=== PATIENT | male | born 1960 | race Hispanic/Latino ===

== ENCOUNTER 2017-06-30 06:41 | Emergency (ER) | payer MEDICARE, OTHER ==
[~2017-06-30] VITALS: Ht 160 cm; Wt 83.5 kg
[2017-06-30] MEDS ORDERED: CARAFATE1 GM PO (06:58)
[2017-06-30] MEDS ORDERED: NORVASC5 MG PO (06:59)
[2017-06-30] MEDS ORDERED: PRILOSEC OTC20 MG PO (06:59)
[2017-06-30] MEDS ORDERED: SIMVASTATIN10 MG PO (07:00)
[2017-06-30] MEDS ORDERED: ZESTRIL40 MG PO (07:01)
[2017-06-30] MEDS ORDERED: CHLORDIAZEPOXID25 MG PO (07:05)
[2017-06-30] MEDS ORDERED: VISTARIL25 MG PO (07:10)
[2017-06-30] MEDS ORDERED: ZOFRAN ODT4 MG PO (07:11)
[2017-06-30] MEDS ORDERED: MELATONIN3 MG PO (07:13)
[2017-06-30] MEDS ORDERED: TRAZODONE HCL100 MG PO (07:14)
--- NOTE | 2017-06-30 12:10 | EKG ---
[facility] [address] [place], [place] [address] Signed Normal sinus rhythm Right bundle branch block Abnormal ECG No previous ECGs available Confirmed by JUAN F AGOSTO MD ([id number]) on 06/30/2017 12:10:45 PM Electronically Signed By: JUAN F AGOSTO MD 06/30/17 1210 PATIENT NAME: AJ EMERSON Electrocardiogram DATE OF : 62 PHYSICIAN: JUAN F AGOSTO MD REPORT #: [id number] REPORT IS CONFIDENTIAL AND NOT TO BE RELEASED WITHOUT AUTHORIZATION
== END 2017-06-30 08:03 | disposition home or self-care (01) ==
LOC: ED 06:41
DX: R07.2 Precordial pain (principal); I10 Essential (primary) hypertension; Z87.891 Personal history of nicotine dependence; Z79.899 Other long term (current) drug therapy
CPT/HCPCS: 71010; 80053; 84484; 85025; 93005; 93010; 96374; 99284; J2405

== ENCOUNTER 2017-11-01 10:28 | Emergency (ER) | payer MEDICARE, OTHER ==
[~2017-11-01] VITALS: Ht 160 cm; Wt 83.5 kg
[~2017-11-01 10:28] MED LIST: CARAFATE1 GM PO; CHLORDIAZEPOXID25 MG PO; MELATONIN3 MG PO; NORVASC5 MG PO; PRILOSEC OTC20 MG PO; SIMVASTATIN10 MG PO; TRAZODONE HCL100 MG PO; VISTARIL25 MG PO; ZESTRIL40 MG PO; ZOFRAN ODT4 MG PO
[2017-11-01] MEDS ORDERED: K-TAB ER20 MEQ PO (10:42)
[2017-11-01] MEDS ORDERED: TAMSULOSIN HCL0.4 MG PO (10:42)
[2017-11-01] MEDS ORDERED: BACLOFEN10 MG PO (12:20)
[2017-11-01] MEDS ORDERED: MEDROL4 M1 PO (12:20)
== END 2017-11-01 12:31 | disposition home or self-care (01) ==
LOC: ED 10:28
DX: M25.511 Pain in right shoulder (principal); E78.00 Pure hypercholesterolemia, unspecified; I10 Essential (primary) hypertension; Z87.891 Personal history of nicotine dependence; Z79.899 Other long term (current) drug therapy; W01.0XXA Fall on same level from slipping, tripping and stumbling without subsequent striking against object, initial encounter
CPT/HCPCS: 73030; 96374; 99283; J1885

== ENCOUNTER 2017-11-03 18:21 | Emergency (ER) | payer MEDICARE, OTHER ==
[~2017-11-03] VITALS: Ht 160 cm; Wt 86.2 kg
[~2017-11-03 18:21] MED LIST changes: +BACLOFEN10 MG PO; +K-TAB ER20 MEQ PO; +MEDROL4 M1 PO; +TAMSULOSIN HCL0.4 MG PO
[2017-11-03] MEDS ORDERED: PAIN RELIEVER500 MG PO (19:24)
== END 2017-11-03 23:00 | disposition home or self-care (01) ==
LOC: ED 18:21
DX: R10.11 Right upper quadrant pain (principal); I10 Essential (primary) hypertension; Z87.891 Personal history of nicotine dependence; Z79.899 Other long term (current) drug therapy
CPT/HCPCS: 74177; 80053; 81001; 83690; 85025; 96372; 96374; 99284; J0500; Q9967

== ENCOUNTER 2017-11-06 11:33 | Emergency (ER) | payer MEDICARE, OTHER ==
[~2017-11-06] VITALS: Ht 160 cm; Wt 86.2 kg
[~2017-11-06 11:33] MED LIST changes: +PAIN RELIEVER500 MG PO
[2017-11-06] MEDS ORDERED: TYLENOL WITH C1 EACH PO (12:58)
== END 2017-11-06 13:08 | disposition home or self-care (01) ==
LOC: ED 11:33
DX: S20.211A Contusion of right front wall of thorax, initial encounter (principal); I10 Essential (primary) hypertension; E78.00 Pure hypercholesterolemia, unspecified; Z87.891 Personal history of nicotine dependence; Z79.899 Other long term (current) drug therapy; W07.XXXA Fall from chair, initial encounter
CPT/HCPCS: 71101; 99283

== ENCOUNTER 2018-06-06 13:19 | Emergency (ER) | payer MEDICARE, OTHER ==
[~2018-06-06] VITALS: Ht 160 cm; Wt 86.2 kg
--- OUTSIDE RECORDS SUMMARY | ~2018-06-06 | XMS | Encounter Summary ---
Demographics + + + | Address | [address] | | | [place] [address] | + + + | Home Phone | | + + + | Preferred Language | Unknown | + + + | Marital Status | | + + + | Uatsdin Affiliation | Unknown | + + + | Race | Unknown | + + + | Ethnic Group | Unknown | + + + Author + + + | Author | [facility] | | | and Javyana | + + + | Organization | [facility] | | [...] [place] | | | | | [address] | | + + + + + Care Team Providers + +------+ + | Care Clamp Remover Name | Role | Phone | + [...] | Internal | Heriberto | [address] | | | | | derangement | [place] | [place], | | | | | of right | [address] | [place] | | | | | shoulder | [address] [place] | [address] | | | | | Right | [place], [place] | Phone: | | | | | shoulder | [address] | [phone] | | | | | pain, | Phone: | Fax: | | | | | unspecified | [phone] | [phone] | | | | | chronicity | Fax: | | | | | | Primary | [phone] | | | | | | osteoarthrit [...] | Internal | Heriberto | [address] | | | | | derangement | [place] | [place], | | | | | of right | [address] | [place] | | | | | shoulder | [address] [place] | [address] | | | | | Right | [place], [place] | Phone: | | | | | shoulder | [address] | [phone] | | | | | pain, | Phone: | Fax: | | | | | unspecified | [phone] | [phone] | | | | | chronicity | Fax: | | | | | | Primary | [phone] | | | | | | osteoarthrit [...] | Internal | Heriberto | [address] | | | | | derangement | [place] | [place], | | | | | of right | [address] | [place] | | | | | shoulder | [address] [place] | [address] | | | | | Right | [place], [place] | Phone: | | | | | shoulder | [address] | [phone] | | | | | pain, | Phone: | Fax: | | | | | unspecified | [phone] | [phone] | | | | | chronicity | Fax: | | | | | | Primary | [phone] | | | | | | osteoarthrit [...] + + | 06/03/ | Hospital | [facility] | Heriberto Laurent | Internal derangement | | 2018 | Encounter | MED CTR MRI [address] | [place] | of right shoulder; | | | | [place], | [address] [place] | Right shoulder pain, | | | | [place] [address] | [place] [address] | unspecified | | | | [phone] | [phone] | chronicity; Primary | | | | [...] [place] | | | | | | [address] | | | | | | [phone] | | | | | | | [...]
--- OUTSIDE RECORDS SUMMARY | ~2018-06-06 | XMS | Encounter Summary ---
Demographics + + + | Address | [address] | | | [place] [address] | + + + | Home Phone | | + + + | Preferred Language | Unknown | + + + | Marital Status | | + + + | Restoration Affiliation | Unknown | + + + | Race | Unknown | + + + | Ethnic Group | Unknown | + + + Author + + + | Author | [facility] | | | and Jvayana | + + + | Organization | [facility] | | | [...] [place] | | | | | [address] | | + + + + + Care Team Providers + +------+ + | Care Industrial Laborer Name | Role | Phone | + +------+ + | Neeru Leggett | PCP | | + +------+ + Encounter Details +--------+ + + + + | Date | Type | Department | Care Team | Description | +--------+ + + + + | 06/03/ | Hospital | [facility] | Heriberto Laurent | Internal derangement | | 2018 | Encounter | MED CTR XRAY [address] | [place] | of right shoulder; | | | | [place] | [address] [place] | Right shoulder pain, | | | | [place] [address] | [place] [address] | unspecified | | | | [phone] | [phone] | chronicity; Primary | | | | | | osteoarthritis of | | | | | Rad, [facility] | right shoulder | +--------+ + + [...] 2018 | Visit | | MD Micaela TURNER | | | | | | [place] | | | | | | [address] | | | | | | [phone] | | | | | | | [...] + + + in this encounter Results [place] Shoulder Inj Right for MRI or [...] + + | Performing | Address | City[facility] | Phone Number | | Organization | [...] localized osteoarthrosis, shoulder region | + + Administered Medications + +--------+ + +------+------+ | Medication Order | MAR | Action | Dose | Rate | Site | | | Action | Date | | | | + +--------+ + +------+------+ | gadobutrol (GADAVIST) injection | Given | | 0.05 mLs | | | | 0.05 mL 0.05 mL, | | 8 11:58 | | | | | Intra-articular, ONCE PRN, Other, | | PDT | | | | | Starting 06/03/18 at 1157, | | | | | | | For 1 dose, MRI | | | | | | + +--------+ + +------+------+ +---+---+ | | | +---+---+ + +-------+ +-------+---+---+ | iohexol (OMNIPAQUE 240) 240 | Given | | 5 mLs | | | | mg/mL injection 5 mL 5 mL, | | 8 12:15 | | | | | Intra-articular, ONCE, Fri | | PDT | | | | | 06/03/18 at 1215, For 1 dose, | | | | | | | Radiology | | | | | | + +-------+ +-------+---+---+ +---+---+ | | | +---+---+ + +-------+ +-------+---+ + | lidocaine 1% injection 5 mL 5 | Given | | 5 mLs | | Other | | mL, Intradermal, ONCE, Fri | | 8 12:15 | | | (Comment | | 06/03/18 at 1215, For 1 dose | | PDT | | | ) | + +-------+ +-------+---+ + +---+---+ | | | +---+---+ in this encounter
--- OUTSIDE RECORDS SUMMARY | ~2018-06-06 | XMS | Encounter Summary ---
Demographics + + + | Address | [address] | | | [place] [address] | + + + | Home Phone | | + + + | Preferred Language | Unknown | + + + | Marital Status | | + + + | Mu-Ism Affiliation | Unknown | + + + | Race | Unknown | + + + | Ethnic Group | Unknown | + + + Author + + + | Author | [facility] | | | and Javyana | + + + | Organization | [facility] | | | [...] [place] | | | | | [address] | | + + + + + Care Team Providers + +------+ + | Care Die Sizer Name | Role | Phone | + [...] W | | | | | | [place], | | | | | | [place] [address] | | | | | | [phone] | | | +--------+ + + + [...] | | | | | | [place] | | | | | | [address] | | | | | | [phone] | | | | | | | | +--------+---------+ + + + as of this encounter Visit Diagnoses Not on filein this encounter
--- OUTSIDE RECORDS SUMMARY | ~2018-06-06 | XMS | Clinical Summary ---
Demographics + + + | Address | [address] | | | [place] [address] | + + + | Home Phone | | + + + | Preferred Language | Unknown | + + + | Marital Status | | + + + | Hoahaoism Affiliation | Unknown | + + + | Race | Unknown | + + + | Ethnic Group | Unknown | + + + Author + + + | Author | [facility] | + + + | Organization | [facility] [employer] [facility] | + + + | Address | Unknown | + + + | Phone | Unavailable | + + + Support + + +---------+ + | Name | Relationship | Address | Phone | + + +---------+ + | Mine Marcos | ECON | Unknown | | + + +---------+ + Care Team Providers + +------+ + | Care Linux Vmware Administrator Name | Role | Phone | + [...]
--- OUTSIDE RECORDS SUMMARY | ~2018-06-06 | XMS | Encounter Summary ---
Demographics + + + | Address | [address] | | | [place] [address] | + + + | Home Phone | | + + + | Preferred Language | Unknown | + + + | Marital Status | | + + + | Confucianism Affiliation | Unknown | + + + | Race | Unknown | + + + | Ethnic Group | Unknown | + + + Author + + + | Author | [facility] | | | and [place] | + + + | Organization | [facility] | | | and [place] | + + + | Address | Unknown | + + + | Phone | Unavailable | + + + Support + + + + + | Name | Relationship | Address | Phone | + + + + + | Arabella aPtel | ECON | Unknown | | + + + + + | Mine Marcos | ECON | [place] | | | | | [address] | | + + + + + Care Team Providers + +------+ + | Care Compliance Officer Name | Role | Phone | + +------+ + | Neeru Leggett | PCP | | + +------+ + Reason for Visit + + + | Reason | Comments | + + + | Shoulder Pain | | + + + | Mental Health | | | Evaluation | | + + + Encounter Details +--------+ + + + + | Date | Type | Department | Care Team | Description | +--------+ + + + + | 06/03/ | Emergency | [facility] | Manuel Leggett, | Acute pain of right | | 2018 - | | [facility] | MD [address] | shoulder (Primary | | | | CENTER [address] | [facility] [place] | Dx); Depression, | | 06/04/ | | [place] | [place] [address] | unspecified | | 2017 | | [address] | [phone] | depression type; | | | | [phone] | | Suicidal ideation; | | | | | | Hypokalemia; | | | | | | Alcoholic | | | | | | intoxication with | | | | | | complication (HCC) | +--------+ + + + + Social [...] + + + + | Weight | - | - | + + + + | Height | - | - | + + + + | Body Mass Index | - | - | + + + + in this encounter Discharge Instructions Manuel Leggett MD - 06/04/2018Take the medicines as prescribed Follow-up with primary care Follow up at the [place] Follow-up with orthopedics Any additional prescription for pain medicine needs to come from one of your regular physic ians, not the ER The following attachments cannot be sent through Care Everywhere.Depression (Eritrean)Alcoho l Intoxication ([place]rit[place]an)Hypokalemia ([place]ritrean)Shoulder Problems ([place]rit[place]an)in this encounter Medications at Time of Discharge [...] [place] | | | | | | [address] | | | | | | [phone] | | | | | | | | +--------+---------+ + + + + +--------+ + + | Name | Priori | Associated Diagnoses | Date/Time | | | ty | | | + +--------+ + + | ED INFORMATION EXCHANGE | Routin | | 06/03/20182237 PDT | | | e | | [...] | | | PEDRO | | | [id number] | | | [id number] | | | This | | | [...] | | | 178-01 | | | [id number] | | | [id number] | | | [...] | | | St. | | | [place] | | | y | | | [...] | | | r | | | [place] | | | , TEXTILE MACHINE MAINTENANCE MECHANIC, | | | TEXTILE MACHINE MAINTENANCE MECHANIC | | | Primar | | | [...] | | | fectio | | | n/Medical Doctor Nuclear Medicine | | | nic10/ | | | [...] | | | St. | | | [place] | | | y | | | [...] | | | [phone] | | | [phone] | | | .These | | | [...] | | +---+--------+ in this encounter Results TSH (06/03/2018 2686) + + + + + | Component | Value | Ref Range | Performed At | + + + + + | TSH | 1.74Comment: This is a | 0.45 - 5.33 uIU/mL | [facility] | | | third generation TSH | | [facility] | | | test. | | [...] + | [facility] | [address] | [place] | [phone] | | [facility] | | [address] | | | - LABORATORY | | | | + + + + + | [facility] | [address] | [place] | | | [facility] | | [address] | | | - LABORATORY | | | | + + + + + Urinalysis with Microscopic with Culture if Indicated (06/03/20182253) + + + + + | Component | Value | Ref Range | Performed At | + + + + + | COLOR | Yellow | Light Yellow, | [facility] | | | | Yellow, Straw | [facility] | | | | | CENTER [...] + + + + + | Specific [place] | 1.013 | 1.001 - 1.030 | [...] + + | Performing | Address | City/[facility]/Zipcode | Phone Number | | Organization | | | | + + + + + | [facility] | [address] | [place], [place] | [phone] | | [facility] | | [address] | | | - LABORATORY | | | | + + + + + | [facility] | [address] | [place] | | | [facility] | | [address] | | | - LABORATORY | | | | + + + + + Drugs of Abuse, Screen, Urine (06/03/2018 2679) + + + + + | Component | Value | Ref Range | Performed At | + + + + + | Amphetamine Screen, | Negative | Negative | [facility] | | Urine | | | [facility] | | | | | CENTER - | | | | | LABORATORY | + + + + + | Barbiturates Screen, | Negative | Negative | [facility] | | Urine | | | [facility] | | | | | CENTER [...] + | [facility] | [address] | [place], [place] | [phone] | | [facility] | | [address] | | | - LABORATORY | | | | + + + + + | [facility] | [address] | [place], [place] | | | [facility] | | [address] | | | - LABORATORY | | | | + + + + + Acetaminophen Level (06/03/20182253) + +-------+ + + | Component | Value | Ref Range | Performed At | + +-------+ + + | Acetaminophen Level | <10 | <10 ug/mL | [facility] | | | | [...] + | [facility] | [address] | [place] | [phone] | | [facility] | | [address] | | | - LABORATORY | | | | + + + + + | [facility] | [address] | [place] | | | [facility] | | [address] | | | - LABORATORY | | | | + + + + + Salicylate Level (06/03/20182253) + +-------+ + + | Component | Value | Ref Range | Performed At | + +-------+ + + | Salicylate Level | <4.0 | <30.0 mg/dL | [facility] | | | | | [facility] | | | | | CENTER - | | | | | LABORATORY | + +-------+ + + + + | Specimen | + + | Blood | + + + + + + + | Performing | Address | City/State/Zipcode | Phone Number | | Organization | | | | + + + + + | [facility] | [address] | [place], [place] | [phone] | | [facility] | | [address] | | | - LABORATORY | | | | + + + + + | [facility] | [address] | [place], [place] | | | [facility] | | [address] | | | - LABORATORY | | | | + + + + + Ethanol (06/03/20182253) + +-------+ + + | Component | Value | Ref Range | Performed At | + +-------+ + + | ALCOHOL, | 127 | <400 mg/dL | [facility] | | SERUM/PLASMA | | | [facility] | | | | | CENTER - | | | | | LABORATORY | + +-------+ + + + + | Specimen | + + | Blood | + + + + + + + | Performing | Address | City/State/Zipcode | Phone Number | | Organization | | | | + + + + + | [facility] | [address] | [place] | [phone] | | [facility] | | [address] | | | - LABORATORY | | | | + + + + + | [facility] | [address] | [place] | | | [facility] | | [address] | | | - LABORATORY | | | | + + + + + Comprehensive Metabolic Panel (06/03/20182253) + + + + + | Component | Value | Ref Range | Performed At | + + + + + | NA | 140 | 136 - 149 mmol/L | [facility] | | | | | [facility] | | | | | CENTER [...] 9 | 7 - 18 mg/dL | [facility] | | | | | [facility] | | | | | CENTER - | | | | | LABORATORY | + + + + + | Creatinine, | 0.70 | 0.60 - 1.30 mg/dL | [facility] | | Serum/Plasma | | | [facility] | | | | | CENTER - | | | | | LABORATORY | + + + + + | eGFR if not | >60Comment: GLOMERULAR | >=60 mL/min/1.73m2 | [facility] | | [place] | FILTRATION | | [facility] | | | RATE,ESTIMATED mL/min | | CENTER - | | | /1.86u1Qlwx than 60 | | LABORATORY | | [...] 8.5 | 8.3 - 10.5 mg/dL | [facility] | | | | | [facility] | | | | | CENTER - | | | | | LABORATORY | + + + + + | ALBUMIN | 3.9 | 3.2 - 5.0 g/dL | [facility] | | | | | [facility] | | | | | CENTER - | | | | | LABORATORY | + + + + + | Bilirubin Total | 0.8Comment: This is an | 0.1 - 1.5 mg/dL | [facility] | | | appended report. These | | [facility] | | | results have been | | CENTER - | | | appended to a previously | | LABORATORY | | | preliminary verified | | | | | report. | | | + + + + + | Total protein | 6.9 | 6.0 - 7.8 g/dL | [facility] | | | | | [facility] | | | | | [...] | | appended report. These | | [facility] | | | results have been | | CENTER - | | | appended to a previously | | LABORATORY | | | preliminary verified | | | | | report. | | | + + + + + | GLOBULIN | 3.0 | 2.1 - 3.8 g/dL | [facility] | | | | | [facility] | | | | | CENTER - | | | | | LABORATORY | + + + + + | Albumin/Globulin | 1.3 | 0.8 - 2.0 | [facility] | | ratio | | | [facility] | | | | | CENTER - | | | | | LABORATORY | + + + + + | BUN/CREA | 12.9 | | [facility] | | | | | [facility] | | | | | CENTER [...] + | [facility] | [address] | [place] | [phone] | | [facility] | | [address] | | | - LABORATORY | | | | + + + + + | [facility] | [address] | [place] | | | [facility] | | [address] | | | - LABORATORY | | | | + + + + + CBC with Differential (06/03/20182253) + +-------+ + + | Component | Value | Ref Range | Performed At | + +-------+ + + | WBC | 9.9 | 4.0 - 11.0 K/uL | [facility]. | | | | | [facility] | | | | | CENTER - | | | | | LABORATORY | + +-------+ + + | RBC | 4.90 | 4.30 - 5.70 M/uL | [facility]. | | | | | [facility] | | | | | CENTER [...] [facility] | | | | | [facility] | | | | | [...] + | [facility] | [address] | [place], [place] | [phone] | | [facility] | | [address] | | | - LABORATORY | | | | + + + + + | [facility] | [address] | [place], [place] | | | [facility] | | [address] | | | - LABORATORY | | | | + + + + + in this encounter Visit Diagnoses + + | Diagnosis | + + | Acute pain of right shoulder - Primary | + + | Depression, unspecified depression type | + + | Suicidal ideation | + + | Hypokalemia | + + | Hypopotassemia | + + | Alcoholic intoxication with complication (HCC) | + + Administered Medications + +--------+ +-------+------+------+ | Medication Order | MAR | Action | Dose | Rate | Site | | | Action | Date | | | | + +--------+ +-------+------+------+ | oxyCODONE (ROXICODONE) tablet | Given | | 10 mg | | | | 10 mg 10 mg, Oral, ONCE, Fri | | 23:04 | | | | | 06/03/18 at 2305, For 1 dose | | PDT | | | | + +--------+ +-------+------+------+ +---+---+ | | | +---+---+ + +-------+ +--------+---+---+ | potassium chloride (Klor-Con | Given | | 40 mEq | | | | M20) ER tablet 40 mEq 40 mEq, | | 8 23:30 | | | | | Oral, ONCE, 06/03/18 at 2325, | | PDT | | | | | For 1 dose | | | | | | + +-------+ +--------+---+---+ +---+---+ | | | +---+---+ in this encounter
--- OUTSIDE RECORDS SUMMARY | ~2018-06-06 | XMS | Clinical Summary ---
Demographics + + + | Address | [address] | | | [place] [address] | + + + | Home Phone | | + + + | Preferred Language | Unknown | + + + | Marital Status | | + + + | Presybeterian Affiliation | Unknown | + + + | Race | Unknown | + + + | Ethnic Group | Unknown | + + + Author + + + | Author | [facility] | | | and [place] | + + + | Organization | [facility] | | | and [...] [place] | | | | | [address] | | + + + + + Care Team Providers + +------+ + | Care Control Officer Name | Role | Phone | [...] baclofen twice | | ER visit and FACILITY ENGINEER eval 07/03/17 and 07/05/17 | + + [...] outside recordsFinds good | | support w/ yazidism groups | + + + + + [...] to get detox | | at [facility] Assessment & Plan: Self medicates with ETOH when out of | | narcoticsVery dangerous behavior - advised on risksPatient | | declined referral to treatment or to meet with [facility] | |Per ER note again 06/15/2017 - still drinking; unable to get detox at [place] | | | |Last Assessment & Plan: | |Self medicates with ETOH when out of narcotics | |Very dangerous behavior - advised on risks | |Patient declined referral to treatment or to meet with [facility] | + + + + + | Chronic pain of both shoulders | 04/12/2017 | + + + + + | Overview: Overview: Hx multiple RC surgeryOverview: L | | shoulder arthroscopy with subacromial decompression x 2 (2010 | | with Dr. Espinoza and re-injury with re-repair 2017 at | | [facility])Previously completed PTInjections - minimal reliefSee | | chronic painLast Assessment & Plan: Chronic shoulder pain with | | history of multiple shoulder surgeries and previous PT and | | injections. Referral placed to [facility] per patient | | preference | | | |Last Assessment & Plan: | |Chronic shoulder pain with history of multiple shoulder surgeries and previous PT and injec tions. Referral placed to [facility] per patient preference | + + [...] + -+ | Overview: Overview: Followed by [facility]; chronic | | narcoticsHas and understands how to use NarcanOverview: Followed | | by [facility]; chronic narcoticsHas and understands | | how [...] to discuss transportation resources [facility] | | [facility] to [facility] alternatives | | [...] | | surgeryDr. Lui referred him to [facility] for [facility] opinion - | | pending first visit | |Multiple hernia repair. Followed by GI and surgery | |Dr. Lui referred him to [facility] for second opinion - pending first visit [...] | 05/31/ | Emergency | | Joe Knog | Chronic right | | 2018 | [...] [place] | | | | | | [address] | | | | | | [phone] | | | | | | | [...] | | | PEDRO | | | [id number] | | | [id number] | | | This | | | [...] | | | 178-01 | | | [id number] | | | d0cb | | | [...] | | | St. | | | [place] | | | y | | | [...] | | | r | | | [place] | | | , CANAL SUPERINTENDENT, | | | CANAL SUPERINTENDENT | | | Primar | | | [...] | | | fectio | | | n/Technical Operations Vice President | | | nic10/ | | | [...] | | | St. | | | [place] | | | y | | | [...] | | | Guidel | | | ojhnny | | | Medica | | | [...] | | | PEDRO | | | [id number] | | | [id number] | | | This | | | [...] | | | 178-01 | | | [id number] | | | d0cb | | | [...] | | | St. | | | [place] | | | y | | | [...] | | | r | | | [place] | | | , CANAL SUPERINTENDENT, | | | CANAL SUPERINTENDENT | | | Primar | | | [...] | | | St. | | | [place] | | | y | | | [...] with Microscopic with Culture if Indicated (06/03/2018 7042)Only the most recent of 2 results within [...] + + + + + | Specific [place] | 1.013 | 1.001 - 1.030 | [...] [address] | [place] | [phone] | | [facility] | | [address] | | | - LABORATORY | | | | + + + + + | [facility] | [address] | [place] | | | [facility] | | [address] | | | - LABORATORY | | | | + + + + + Drugs of Abuse, Screen, Urine (06/03/2018 2524)Only the most recent of 2 results within [...] ST. | | Urine | | | [facility] | | | | | [...] + | [facility] | [address] | [place] | [phone] | | [facility] | | [address] | | | - LABORATORY | | | | + + + + + | [facility] | [address] | [place] | | | [facility] | | [address] | | | - LABORATORY | | | | + + + + + CBC with Differential (06/03/2018 4206)Only the most recent of 2 results within [...] [facility] | | | | | [facility] | | | | | [...] + | [facility] | [address] | [place], [place] | [phone] | | [facility] | | [address] | | | - LABORATORY | | | | + + + + + | [facility] | [address] | [place], [place] | | | [facility] | | [address] | | | - LABORATORY | | [...] + | [facility] | [address] | [place] | [phone] | | [facility] | | [address] | | | - LABORATORY | | | | + + + + + | [facility] | [address] | [place] | | | [facility] | | [address] | | | - LABORATORY | | | | + + + + + Ethanol (06/03/2018 1054)Only the most recent of 2 results within the time period is includ ed. + +-------+ + + | Component | Value | Ref Range | Performed At | + +-------+ + + | ALCOHOL, | 127 | <400 mg/dL | [facility] | | SERUM/PLASMA | | | [facility] | | | | | [place] - | | | | | LABORATORY | + +-------+ + + + + | Specimen | + + | Blood | + + + + + + + | Performing | Address | City/State/Zipcode | Phone Number | | Organization | | | | + + + + + | [facility] | [address] | [place] | [phone] | | [facility] | | [address] | | | - LABORATORY | | | | + + + + + | [facility] | [address] | [place] | | | [facility] | | [address] | | | - LABORATORY | | | | + + + + + Acetaminophen Level (06/03/2018 4899)Only the most recent of 2 results within [...] + | [facility] | [address] | [place] | [phone] | | [facility] | | [address] | | | - LABORATORY | | | | + + + + + | [facility] | [address] | [place] | | | [facility] | | [address] | | | - LABORATORY | | | | + + + + + Salicylate Level (06/03/2018 8795)Only the most recent of 2 results within [...] + | [facility] | [address] | [place], [place] | [phone] | | [facility] | | [address] | | | - LABORATORY | | | | + + + + + | [facility] | [address] | [place] | | | [facility] | | [address] | | | - LABORATORY | | | | + + + + + Comprehensive Metabolic Panel (06/03/2018 6445)Only the most recent of 2 results within [...] 9 | 7 - 18 mg/dL | [facility] | | | | | [facility] | | | | | CENTER - | | | | | LABORATORY | + + + + + | Creatinine, | 0.70 | 0.60 - 1.30 mg/dL | [facility] | | Serum/Plasma | | | [facility] | | | | | CENTER - | | | | | LABORATORY | + + + + + | eGFR if not | >60Comment: GLOMERULAR | >=60 mL/min/1.73m2 | [facility] | | [place] | FILTRATION | | [facility] | | | RATE,ESTIMATED mL/min | | CENTER - | | | /1.45w8Vktv than 60 | | LABORATORY | | [...] | | appended report. These | | [facility] | | | results have [...] + | [facility] | [address] | [place] | [phone] | | [facility] | | [address] | | | - LABORATORY | | | | + + + + + | [facility] | [address] | [place] | | | [facility] | | [address] | | | - LABORATORY | | [...] + | [facility] | [address] | [place], [place] | [phone] | | [facility] | | [address] | | | - LABORATORY | | | | + + + + + | [facility] | [address] | [place], [place] | | | [facility] | | [address] | | | - LABORATORY | | [...] + | [facility] | [address] | [place], [place] | [phone] | | [facility] | | [address] | | | - LABORATORY | | | | + + + + + | [facility] | [address] | [place], [place] | | | [facility] | | [address] | | | - LABORATORY | | [...] + | [facility] | [address] | [place] | [phone] | | [facility] | | [address] | | | - LABORATORY | | | | + + + + + | [facility] | [address] | [place], [place] | | | [facility] | | [address] | | | - LABORATORY | | [...] +--------+ +---------+ | MEDICARE | MEDICA | [id number] | Medica | [phone] | | | | RE | | re | [phone] | | | | PART A | | | | | | | AND B | | | | | + +--------+ +--------+ +---------+ | VETERANS ADMIN | VETERA | [id number] | Indemn | | | | | NS | | ity | | | | | ADMIN | | | | | | | [place] | | | | | | | [place] | | | | | + +--------+ +--------+ +---------+ | MEDICAID [place] | MEDICA | [id number] | Medica | [phone] | | | ID | | [...] | | | lady | | | [phone] | + +--------+ +--------+ + +
--- OUTSIDE RECORDS SUMMARY | ~2018-06-06 | XMS | Encounter Summary ---
Demographics + + + | Address | [address] | | | [place] [address] | + + + | Home Phone | | + + + | Preferred Language | Unknown | + + + | Marital Status | | + + + | Uatsdin Affiliation | Unknown | + + + | Race | Unknown | + + + | Ethnic Group | Unknown | + + + Author + + + | Author | [facility] | | | and Javyana | + + + | Organization | [facility] | | [...] [place] | | | | | [address] | | + + + + + Care Team Providers + +------+ + | Care Industrial Order Clerk Name | Role | Phone | + +------+ + | Neeru Leggett | PCP | | + +------+ + Encounter Details +--------+ + + + + | Date | Type | Department | Care Team | Description | +--------+ + + + + | 06/03/ | Hospital | [facility] | Heriberto Laurent | Internal derangement | | 2018 | Encounter | MED CTR XRAY [address] | [address] | of right shoulder; | | | | [place] | [address] [place] | Right shoulder pain, | | | | [place] [address] | [place] [address] | unspecified | | | | [phone] | [phone] | chronicity; Primary | | | | [...] [place] | | | | | | [address] | | | | | | [phone] | | | | | | | [...] + + | Performing | Address | City[facility]State[facility] | Phone Number | | Organization | [...]
--- OUTSIDE RECORDS SUMMARY | ~2018-06-06 | XMS | Encounter Summary ---
Demographics + + + | Address | [address] | | | [place] [address] | + + + | Home Phone | | + + + | Preferred Language | Unknown | + + + | Marital Status | | + + + | Anglican Affiliation | Unknown | + + + | Race | Unknown | + + + | Ethnic Group | Unknown | + + + Author + + + | Author | [facility] | | | and Javyana | + + + | Organization | [facility] | | [...] [place] | | | | | [address] | | + + + + + Care Team Providers + +------+ + | Care Manager Document Control Name | Role | Phone | + [...] + + | 05/05/ | Office | [facility] | Heriberto Laurent | Internal derangement | | 2018 | Visit | ORTHOPEDIC SURGERY | [address] | of right shoulder | | | | [address] | [address] [facility] | (Primary Dx); Right | | | | [place], [place] | [place] [address] | shoulder pain, | | | | [address] | [phone] | unspecified | | | | [phone] | | chronicity | +--------+---------+ + + [...] 12:14 This note was dictated using the BaroFold voice recognition system. Minor errors in grammar [...] [place] | | | | | | [address] | | | | | | [phone] | | | | | | | | +--------+---------+ + + + as of this encounter Visit Diagnoses + + | Diagnosis | + + | Internal derangement of right shoulder - Primary | + + | Right shoulder pain, unspecified chronicity | + +"
--- OUTSIDE RECORDS SUMMARY | ~2018-06-06 | XMS | Encounter Summary ---
Demographics + + + | Address | [address] | | | [place] [address] | + + + | Home Phone [...] + + | Author | [facility] | | | and Javyana | + + + | Organization | [facility] | | | [...] [place] | | | | | [address] | | + + + + + Care Team Providers + +------+ + | Care Reel Hooker Name | Role | Phone | + [...] | Internal | Heriberto | [address] | | | | | derangement | SOURAV Zavaleta | [place], | | | | | of right | [address] | [place] | | | | | shoulder | St [place] | [address] | | | | | Right | [place], [place] | Phone: | | | | | shoulder | [address] | [phone] | | | | | pain, | Phone: | Fax: | | | | | unspecified | [phone] | [phone] | | | | | chronicity | Fax: | | | | | | Primary | [phone] | | | | | | osteoarthrit [...] (Primary Dx); Right | | | | [place], [place] | [place] [address] | shoulder pain, | | | | [address] | [phone] | unspecified | | | | [phone] | | chronicity; Primary | | | [...] [place] | | | | | | [address] | | | | | | [phone] | | | | | | | [...]
--- OUTSIDE RECORDS SUMMARY | ~2018-06-06 | XMS | Clinical Summary ---
Demographics + + + | Address | [address] | | | [place] [address] | + + + | Home Phone | | + + + | Preferred Language | Unknown | + + + | Marital Status | | + + + | Presybeterian Affiliation | Unknown | + + + | Race | Unknown | + + + | Ethnic Group | Unknown | + + + Author + + + | Author | [facility] | + + + | Organization | [facility] | + + + | Address | Unknown | + + + | Phone | Unavailable | + + + Support + + +---------+ + | Name | Relationship | Address | Phone | + + +---------+ + | Mine Marcos | ECON | Unknown | | + + +---------+ + Care Team Providers + +------+ + | Care Preservationist Name | Role | Phone | + [...]
--- OUTSIDE RECORDS SUMMARY | ~2018-06-06 | XMS | Encounter Summary ---
Demographics + + + | Address | [address] | | | [place] [address] | + + + | Home Phone | | + + + | Preferred Language | Unknown | + + + | Marital Status | | + + + | Religion Affiliation | Unknown | + + + | Race | Unknown | + + + | Ethnic Group | Unknown | + + + Author + + + | Author | [facility] | | | and Javyana | + + + | Organization | [facility] | | | and [place] | + + + | Address | Unknown | + + + | Phone | Unavailable | + + + Support + + + + + | Name | Relationship | Address | Phone | + + + + + | Arabella Patle | ECON | Unknown | | + + + + + | [place] | ECON | [place] | | | | | [address] | | + + + + + Care Team Providers + +------+ + | Care Methods Engineer Name | Role | Phone | [...] + + | 05/31/ | Emergency | [facility] | Joe Kong | Chronic right | | 2018 | | [facility] | MD Nain [address] | shoulder pain | | | | [place] [address] | [address] [facility] | (Primary Dx) | | | | [place], [place] | [place] [address] | | | | | [address] | [phone] | | | | | [phone] | | | +--------+ + + + [...] attachments cannot be sent through Care Everywhere.Renato (Palauan)in this encounter Medications at Time of Discharge [...] [place] | | | | | | [address] | | | | | | [phone] | | | | | | | [...] | | | [place] | | | [id number] | | | [id number] | | | This | | | [...] | | | 178-01 | | | [id number] | | | d0cb | | | [...] | | | St. | | | [place] | | | y | | | [...] | | | r | | | [place] | | | , WASTE/MATERIALS EXCHANGE SPECIALIST, | | | WASTE/MATERIALS EXCHANGE SPECIALIST | | | Primar | | [...] | | | St. | | | [place] | | | y | | | [...] ST. | | Urine | | | [facility] | | | | | CENTER [...] ST. | | Urine | | | [facility] | | | | | CENTER [...] [address] | [place] | [phone] | | [facility] | | [address] | | | - LABORATORY | | | | + + + + + | [facility] | [address] | [place] | | | [facility] | | [address] | | | - LABORATORY | | | | + + + + + Urinalysis with Microscopic with Culture if Indicated (05/31/20181936) + + + + + | Component | Value | Ref Range | Performed At | + + + + + | COLOR | Yellow | Light Yellow, | [facility] | | | | Yellow, Straw | [facility] | | | | | CENTER [...] + + + + + | Specific [place] | 1.008 | 1.001 - 1.030 | [...] + | [facility] | [address] | [place], [place] | [phone] | | [facility] | | [address] | | | - LABORATORY | | | | + + + + + | [facility] | [address] | [place], [place] | | | [facility] | | [address] | | | - LABORATORY | | | | + + + + + Extra Lavender Top Tube (05/31/2018 1909) + +-------+ + + | Component | Value | Ref Range | Performed At | + +-------+ + + | Extra Lavender Top | Done | | [facility] | | Tube | | | [facility] | | | | | CENTER - | | | | | LABORATORY | + +-------+ + + + + | Specimen | + + | Blood | + + + + + + + | Performing | Address | City/State/Zipcode | Phone Number | | Organization | | | | + + + + + | [facility] | [address] | [place] | [phone] | | [facility] | | [address] | | | - LABORATORY | | | | + + + + + | [facility] | [address] | [place] | | | [facility] | | [address] | | | - LABORATORY | | | | + + + + + Extra Gold Top Tube (05/31/20181908) + +-------+ + + | Component | Value | Ref Range | Performed At | + +-------+ + + | EGDT | Done | | [facility] | | | | | [facility] | | | | | CENTER - | | | | | LABORATORY | + +-------+ + + + + | Specimen | + + | Blood | + + + + + + + | Performing | Address | City/State/Zipcode | Phone Number | | Organization | | | | + + + + + | [facility] | [address] | [place] | [phone] | | [facility] | | [address] | | | - LABORATORY | | | | + + + + + | [facility] | [address] | [place] | | | [facility] | | [address] | | | - LABORATORY | | | | + + + + + Extra Blue Top Tube (05/31/20181908) + +-------+ + + | Component | Value | Ref Range | Performed At | + +-------+ + + | Extra Blue Top Tube | Done | | [facility] | | | | | [facility] | | | | | CENTER - | | | | | LABORATORY | + +-------+ + + + + | Specimen | + + | Blood | + + + + + + + | Performing | Address | City/State/Zipcode | Phone Number | | Organization | | | | + + + + + | [facility] | [address] | [place], [place] | [phone] | | [facility] | | [address] | | | - LABORATORY | | | | + + + + + | [facility] | [address] | [place], [place] | | | [facility] | | [address] | | | - LABORATORY | | [...] + | [facility] | [address] | [place] | [phone] | | [facility] | | [address] | | | - LABORATORY | | | | + + + + + | [facility] | [address] | [place] | | | [facility] | | [address] | | | - LABORATORY | | | | + + + + + Acetaminophen Level (05/31/20181905) + +-------+ + + | Component | Value | Ref Range | Performed At | + +-------+ + + | Acetaminophen Level | <10 | <10 ug/mL | [facility] | | | | | [facility] | | | | | CENTER - | | | | | LABORATORY | + +-------+ + + + + | Specimen | + + | Blood | + + + + + + + | Performing | Address | City/State/Zipcode | Phone Number | | Organization | | | | + + + + + | [facility] | [address] | [place], [place] | [phone] | | [facility] | | [address] | | | - LABORATORY | | | | + + + + + | [facility] | [address] | [place], [place] | | | [facility] | | [address] | | | - LABORATORY | | | | + + + + + TSH (05/31/2018 1906) + + + + + | Component | Value | Ref Range | Performed At | + + + + + | TSH | 0.91Comment: This is a | 0.45 - 5.33 uIU/mL | [facility]. | | | third generation TSH | | [facility] | | | test. | | [...] + | [facility] | [address] | [place] | [phone] | | [facility] | | [address] | | | - LABORATORY | | | | + + + + + | [facility] | [address] | [place], [place] | | | [facility] | | [address] | | | - LABORATORY | | | | + + + + + Ethanol (05/31/20181905) + +-------+ + + | Component | Value | Ref Range | Performed At | + +-------+ + + | ALCOHOL, | 163 | <400 mg/dL | [facility] | | SERUM/PLASMA | | | [facility] | | | | | CENTER - | | | | | LABORATORY | + +-------+ + + + + | Specimen | + + | Blood | + + + + + + + | Performing | Address | City/State/Zipcode | Phone Number | | Organization | | | | + + + + + | [facility] | [address] | [place] | [phone] | | [facility] | | [address] | | | - LABORATORY | | | | + + + + + | [facility] | [address] | [place] | | | [facility] | | [address] | | | - LABORATORY | | [...] [facility] | | | | | [facility] | | | | | CENTER - | | | | | LABORATORY | + + + + + | ANION GAP | 13 | 3 - 16 mmol/L | [facility] | | | | | [facility] | | | | | CENTER [...] (L) | 7 - 18 mg/dL | [facility]. | | | | | [facility] | | | | | CENTER - | | | | | LABORATORY | + + + + + | Creatinine, | 0.59 (L) | 0.60 - 1.30 mg/dL | [facility]. | | Serum/Plasma | | | [facility] | | | | | CENTER - | | | | | LABORATORY | + + + + + | eGFR if not | >60Comment: GLOMERULAR | >=60 mL/min/1.73m2 | [facility]. | | MICRONESIAN | FILTRATION | | [facility] | | | RATE,ESTIMATED mL/min | | CENTER - | | | /1.70z0Mfpk than 60 | | LABORATORY | | [...] + | [facility] | [address] | [place] | [phone] | | [facility] | | [address] | | | - LABORATORY | | | | + + + + + | [facility] | [address] | [place], [place] | | | [facility] | | [address] | | | - LABORATORY | | | | + + + + + CBC with Differential (05/31/20181905) + +-------+ + + | Component | Value | Ref Range | Performed At | + +-------+ + + | WBC | 9.4 | 4.0 - 11.0 K/uL | [facility] | | | | | [facility] | | | | | CENTER [...] [facility] | | | | | [facility] | | | | | CENTER [...] [address] | [place] | [phone] | | [facility] | | [address] | | | - LABORATORY | | | | + + + + + | [facility] | [address] | [place], [place] | | | [facility] | | [address] | | | - LABORATORY | | [...]
--- OUTSIDE RECORDS SUMMARY | ~2018-06-06 | XMS | Clinical Summary ---
Demographics + + + | Address | [address] | | | [place] [address] | + + + | Home Phone | | + + + | Preferred Language | Unknown | + + + | Marital Status | | + + + | Yarsanism Affiliation | Unknown | + + + | Race | Unknown | + + + | Ethnic Group | Unknown | + + + Author + + + | Author | [facility] | | | and Javyana | + + + | Organization | [facility] | | | [...] [place] | | | | | [address] | | + + + + + Care Team Providers + +------+ + | Care Gas Or Petroleum Operator Name | Role | Phone | [...] baclofen twice | | ER visit and ITALIAN TUTOR eval 07/03/17 and 07/05/17 | + + [...] outside recordsFinds good | | support w/ anabaptism groups | + + + + + [...] get detox | | at [facility] Assessment & Plan: Self medicates with ETOH when out of | | narcoticsVery dangerous behavior - advised on risksPatient | | declined referral to treatment or to meet with [facility] | |Per ER note again 06/15/2017 - still drinking; unable to get detox at [facility] | | | |Last Assessment & Plan: | |Self medicates with ETOH when out of narcotics | |Very dangerous behavior - advised on risks | |Patient declined referral to treatment or to meet with [facility] | + + + + + | Chronic pain of both shoulders | 04/12/2017 | + + + + + | Overview: Overview: Hx multiple RC surgeryOverview: L | | shoulder arthroscopy with subacromial decompression x 2 (2010 | | with Dr. Espinoza and re-injury with re-repair 2017 at | | [facility])Previously completed PTInjections - minimal reliefSee | | chronic painLast Assessment & Plan: Chronic shoulder pain with | | history of multiple shoulder surgeries and previous PT and | | injections. Referral placed to [facility] per patient | | preference | | | |Last Assessment & Plan: | |Chronic shoulder pain with history of multiple shoulder surgeries and previous PT and injec tions. Referral placed to [facility] per patient preference | + + [...] + -+ | Overview: Overview: Followed by [facility]; chronic | | narcoticsHas and understands how to use NarcanOverview: Followed | | by [facility]; chronic narcoticsHas and understands | | how [...] to discuss transportation resources to | | [facility] campusPatient refused to discuss non-narcotic alternatives | [...] | | surgeryDr. Lui referred him to [facility] for [facility] opinion - | | pending first visit | |Multiple hernia repair. Followed by GI and surgery | |Dr. Lui referred him to [facility] for second opinion - pending [...] [place] | | | | | | [address] | | | | | | [phone] | | | | | | | [...] | | | [place] | | | [id number] | | | [id number] | | | This | | | patien | | | t has | | | regist | | | ered | | | at the | | | | | | Provid | | | ence | | | St. | | | [place] | | | Medica | | | [...] | | | 178-01 | | | [id number] | | | d0cb | | | [...] | | | St. | | | [place] | | | y | | | [...] | | | r | | | [facility] | | | , PANEL FLOW MACHINE OPERATOR, | | | PANEL FLOW MACHINE OPERATOR | | | Primar | | [...] | | | fectio | | | n/Property And Casualty Insurance Agent | | | nic10/ | | | [...] | | | St. | | | [place] | | | y | | | [...] | | | [place] | | | [id number] | | | [id number] | | | This | | | [...] | | | 178-01 | | | [id number] | | | d0cb | | | [...] | | | St. | | | [place] | | | y | | | [...] | | | INE | | | LUCINAO | | | SON 3 | | [...] | | | r | | | [facility] | | | , PANEL FLOW MACHINE OPERATOR, | | | PANEL FLOW MACHINE OPERATOR | | | Primar | | [...] | | | St. | | | [place] | | | y | | | [...] | | | mariju | | | eslena | | | use.Cr | | | [...] with Microscopic with Culture if Indicated (06/03/2018 7577)Only the most recent of 2 results within [...] + + + + + | Specific [place] | 1.013 | 1.001 - 1.030 | [...] ST. | | | Indicated | | [facility] | | | | | CENTER [...] [address] | [place] | [phone] | | [facility] | | [address] | | | - LABORATORY | | | | + + + + + | [facility] | [address] | [place] | | | [facility] | | [address] | | | - LABORATORY | | | | + + + + + Drugs of Abuse, Screen, Urine (06/03/2018 3436)Only the most recent of 2 results within the time period is included. + + + + + | Component | Value | Ref Range | Performed At | + + + + + | Amphetamine Screen, | Negative | Negative | [facility] | | Urine | | | [facility] | | | | | CENTER - | | | | | LABORATORY | + + + + + | Barbiturates Screen, | Negative | Negative | [facility] | | Urine | | | [facility] | | | | | CENTER [...] + | [facility] | [address] | [place] | [phone] | | [facility] | | [address] | | | - LABORATORY | | | | + + + + + | [facility] | [address] | [place] | | | [facility] | | [address] | | | - LABORATORY | | | | + + + + + CBC with Differential (06/03/2018 0987)Only the most recent of 2 results within the time chuy dietz is included. + +-------+ + + | Component | Value | Ref Range | Performed At | + +-------+ + + | WBC | 9.9 | 4.0 - 11.0 K/uL | [facility] | | | | | [facility] | | | | | CENTER - | | | | | LABORATORY | + +-------+ + + | RBC | 4.90 | 4.30 - 5.70 M/uL | [facility] | | | | | [facility] | | | | | CENTER [...] [facility] | | | | | [facility] | | | | | CENTER [...] + | [facility] | [address] | [place], [place] | [phone] | | [facility] | | [address] | | | - LABORATORY | | | | + + + + + | [facility] | [address] | [place], [place] | | | [facility] | | [address] | | | - LABORATORY | | [...] | | third generation TSH | | [facility] | | | test. | | [...] + | [facility] | [address] | [place] | [phone] | | [facility] | | [address] | | | - LABORATORY | | | | + + + + + | [facility] | [address] | [place] | | | [facility] | | [address] | | | - LABORATORY | | | | + + + + + Ethanol (06/03/2018 9954)Only the most recent of 2 results within the time period is includ ed. + +-------+ + + | Component | Value | Ref Range | Performed At | + +-------+ + + | ALCOHOL, | 127 | <400 mg/dL | [facility] | | SERUM/PLASMA | | | [facility] | | | | | [place] - | | | | | LABORATORY | + +-------+ + + + + | Specimen | + + | Blood | + + + + + + + | Performing | Address | City/State/Zipcode | Phone Number | | Organization | | | | + + + + + | [facility] | [address] | [place] | [phone] | | [facility] | | [address] | | | - LABORATORY | | | | + + + + + | [facility] | [address] | [place] | | | [facility] | | [address] | | | - LABORATORY | | | | + + + + + Acetaminophen Level (06/03/2018 8945)Only the most recent of 2 results within [...] + | [facility] | [address] | [place] | [phone] | | [facility] | | [address] | | | - LABORATORY | | | | + + + + + | [facility] | [address] | [place] | | | [facility] | | [address] | | | - LABORATORY | | | | + + + + + Salicylate Level (06/03/2018 2926)Only the most recent of 2 results within the time period is included. + +-------+ + + | Component | Value | Ref Range | Performed At | + +-------+ + + | Salicylate Level | <4.0 | <30.0 mg/dL | [facility] | | | | | [facility] | | | | | CENTER - | | | | | LABORATORY | + +-------+ + + + + | Specimen | + + | Blood | + + + + + + + | Performing | Address | City/State/Zipcode | Phone Number | | Organization | | | | + + + + + | [facility] | [address] | [place], [place] | [phone] | | [facility] | | [address] | | | - LABORATORY | | | | + + + + + | [facility] | [address] | [place] | | | [facility] | | [address] | | | - LABORATORY | | | | + + + + + Comprehensive Metabolic Panel (06/03/2018 1473)Only the most recent of 2 results within [...] 9 | 7 - 18 mg/dL | [facility] | | | | | [facility] | | | | | CENTER - | | | | | LABORATORY | + + + + + | Creatinine, | 0.70 | 0.60 - 1.30 mg/dL | [facility] | | Serum/Plasma | | | [facility] | | | | | CENTER - | | | | | LABORATORY | + + + + + | eGFR if not | >60Comment: GLOMERULAR | >=60 mL/min/1.73m2 | [facility] | | [place] | FILTRATION | | [facility] | | | RATE,ESTIMATED mL/min | | CENTER - | | | /1.82l7Sqge than 60 | | LABORATORY | | [...] | | appended report. These | | [facility] | | | results have been [...] + | [facility] | [address] | [place] | [phone] | | [facility] | | [address] | | | - LABORATORY | | | | + + + + + | [facility] | [address] | [place] | | | [facility] | | [address] | | | - LABORATORY | | [...] + | [facility] | [address] | [place], [place] | [phone] | | [facility] | | [address] | | | - LABORATORY | | | | + + + + + | [facility] | [address] | [place], [place] | | | [facility] | | [address] | | | - LABORATORY | | | | + + + + + Extra Gold Top Tube (05/31/20181908) + +-------+ + + | Component | Value | Ref Range | Performed At | + +-------+ + + | EGDT | Done | | [facility] | | | | | [facility] | | | | | CENTER - | | | | | LABORATORY | + +-------+ + + + + | Specimen | + + | Blood | + + + + + + + | Performing | Address | City/State/Zipcode | Phone Number | | Organization | | | | + + + + + | [facility] | [address] | [place], [place] | [phone] | | [facility] | | [address] | | | - LABORATORY | | | | + + + + + | [facility] | [address] | [place], [place] | | | [facility] | | [address] | | | - LABORATORY | | [...] + | [facility] | [address] | [place] | [phone] | | [facility] | | [address] | | | - LABORATORY | | | | + + + + + | [facility] | [address] | [place], [place] | | | [facility] | | [address] | | | - LABORATORY | | [...] +--------+ +---------+ | MEDICARE | MEDICA | [id number] | Medica | [phone] | | | RE | | re | [phone] | | | | PART A | | | | | | | AND B | | | | | + +--------+ +--------+ +---------+ | [employer] | VETER[employer] | [id number] | Indemn | | | | | NS | | ity | | | | | ADMIN | | | | | | | [place] | | | | | | | [place] | | | | | + +--------+ +--------+ +---------+ | MEDICAID [place] | MEDICA | [id number] | Medica | [phone] | | [...] | lady | | | [phone] | [phone] | + +--------+ +--------+ + +
--- OUTSIDE RECORDS SUMMARY | ~2018-06-06 | XMS | Encounter Summary ---
Demographics + + + | Address | [address] | | | [place] [address] | + + + | Home Phone [...] Author | [facility] | | | and Javyana [...] [place] | | | | | [address] | | + + + + + Care Team Providers + +------+ + | Care Activity Therapy Teacher Name | Role | Phone | + [...] + + | 06/03/ | Emergency | [facility] | Manuel Leggett, | Acute pain of right | | 2018 - | | [facility] | MD [address] | shoulder (Primary | | | | CENTER [address] | [facility] [place] | Dx); Depression, | | 06/04/ | | [place] | [place] [address] | unspecified | | 2017 | | [address] | [phone] | depression type; | | | | [phone] | | Suicidal ideation; | | | [...] with primary care Follow up at the [facility] Follow-up with orthopedics Any additional prescription for pain medicine needs to come from one of your regular physic ians, not the ER The following attachments cannot be sent through Care Everywhere.Depression (Nicaraguan)Alcoho l Intoxication (Nicaraguan)Hypokalemia (Nicaraguan)Shoulder Problems (Nicaraguan)in this encounter Medications at Time of Discharge [...] [place] | | | | | | [address] | | | | | | [phone] | | | | | | | [...] | | | PEDRO | | | [id number] | | | [id number] | | | This | | | [...] | | | 178-01 | | | [id number] | | | d0cb | | | [...] | | | St. | | | Magna | | | y | | | [...] | | | r | | | [place] | | | , DRUG SAFETY SCIENTIST, | | | DRUG SAFETY SCIENTIST | | | Primar | | | [...] | | | fectio | | | n/Rv Mechanic | | | nic10/ | | | [...] | | | St. | | | Magna | | | y | | | [...] | | | [phone] | | | [phone] | | | .These | | | [...] +---+--------+ in this encounter Results TSH (06/03/2018 0455) + + + + + | Component [...] [address] | [place] | [phone] | | [facility] | | [address] | | | - LABORATORY | | | | + + + + + | [facility] | [address] | [place] | | | [facility] | | [address] | | | - LABORATORY | | | | + + + + + Urinalysis with Microscopic with Culture if Indicated (06/03/20182253) + + + + + | Component | Value | Ref Range | Performed At | + + + + + | COLOR | Yellow | Light Yellow, | [facility] | | | | Yellow, Straw | [facility] | | | | | [...] + + + + + | Specific [place] | 1.013 | 1.001 - 1.030 | [...] + + | Performing | Address | City/[facility]/Zipcode | Phone Number | | Organization | | | | + + + + + | [facility] | [address] | [place], [place] | [phone] | | [facility] | | [address] | | | - LABORATORY | | | | + + + + + | [facility] | [address] | [place] | | | [facility] | | [address] | | | - LABORATORY | | | | + + + + + Drugs of Abuse, Screen, Urine (06/03/2018 7604) + + + + + | Component | Value | Ref Range | Performed At | + + + + + | Amphetamine Screen, | Negative | Negative | [facility] | | Urine | | | [facility] | | | | | CENTER - | | | | | LABORATORY | + + + + + | Barbiturates Screen, | Negative | Negative | [facility] | | Urine | | | [facility] | | | | | [...] + | [facility] | [address] | [place], [place] | [phone] | | [facility] | | [address] | | | - LABORATORY | | | | + + + + + | [facility] | [address] | [place], [place] | | | [facility] | | [address] | | | - LABORATORY | | [...] + | [facility] | [address] | [place] | [phone] | | [facility] | | [address] | | | - LABORATORY | | | | + + + + + | [facility] | [address] | [place] | | | [facility] | | [address] | | | - LABORATORY | | | | + + + + + Salicylate Level (06/03/20182253) + +-------+ + + | Component | Value | Ref Range | Performed At | + +-------+ + + | Salicylate Level | <4.0 | <30.0 mg/dL | [facility] | | | | | [facility] | | | | | [...] + | [facility] | [address] | [place], [place] | [phone] | | [facility] | | [address] | | | - LABORATORY | | | | + + + + + | [facility] | [address] | [place], [place] | | | [facility] | | [address] | | | - LABORATORY | | | | + + + + + Ethanol (06/03/20182253) + +-------+ + + | Component | Value | Ref Range | Performed At | + +-------+ + + | ALCOHOL, | 127 | <400 mg/dL | [facility] | | SERUM/PLASMA | | | [facility] | | | | | [...] + | [facility] | [address] | [place] | [phone] | | [facility] | | [address] | | | - LABORATORY | | | | + + + + + | [facility] | [address] | [place] | | | [facility] | | [address] | | | - LABORATORY | | | | + + + + + Comprehensive Metabolic Panel (06/03/20182253) + + + + + | Component | Value | Ref Range | Performed At | + + + + + | NA | 140 | 136 - 149 mmol/L | [facility] | | | | | [facility] | | | | | [...] >=60 mL/min/1.73m2 | [facility] | | AUSTRIAN | FILTRATION | | [facility] | | | RATE,ESTIMATED mL/min | | CENTER - | | | /1.33g5Tfva than 60 | | LABORATORY | | [...] [facility] | | | | | [facility] | | | | | [...] | | appended report. These | | [facility] | | | results have been | | CENTER - | | | appended to a previously | | LABORATORY | | | preliminary verified | | | | | report. | | | + + + + + | Total protein | 6.9 | 6.0 - 7.8 g/dL | [facility] | | | | | [facility] | | | | | [...] | | appended report. These | | [facility] | | | results have been | | CENTER - | | | appended to a previously | | LABORATORY | | | preliminary verified | | | | | report. | | | + + + + + | GLOBULIN | 3.0 | 2.1 - 3.8 g/dL | [facility] | | | | | [facility] | | | | | CENTER - | | | | | LABORATORY | + + + + + | Albumin/Globulin | 1.3 | 0.8 - 2.0 | [facility] | | ratio | | | [facility] | | | | | CENTER - | | | | | LABORATORY | + + + + + | BUN/CREA | 12.9 | | [facility] | | | | | [facility] | | | | | [...] [address] | [place] | [phone] | | [facility] | | [address] | | | - LABORATORY | | | | + + + + + | [facility] | [address] | [place] | | | [facility] | | [address] | | | - LABORATORY | | | | + + + + + CBC with Differential (06/03/20182253) + +-------+ + + | Component | Value | Ref Range | Performed At | + +-------+ + + | WBC | 9.9 | 4.0 - 11.0 K/uL | [facility]. | | | | | [facility] | | | | | CENTER - | | | | | LABORATORY | + +-------+ + + | RBC | 4.90 | 4.30 - 5.70 M/uL | [facility]. | | | | | [facility] | | | | | [...] [facility] | | | | | [facility] | | | | | [...] + | [facility] | [address] | [place], [place] | [phone] | | [facility] | | [address] | | | - LABORATORY | | | | + + + + + | [facility] | [address] | [place], [place] | | | [facility] | | [address] | | | - LABORATORY | | [...]
--- OUTSIDE RECORDS SUMMARY | ~2018-06-06 | XMS | Encounter Summary ---
Demographics + + + | Address | [address] | | | [place] [address] | + + + | Home Phone | | + + + | Preferred Language | Unknown | + + + | Marital Status | | + + + | Mosque Affiliation | Unknown | + + + | Race | Unknown | + + + | Ethnic Group | Unknown | + + + Author + + + | Author | [facility] | | | and Javyana | + + + | Organization | [facility] [place] | | [...] [place] | | | | | [address] | | + + + + + Care Team Providers + +------+ + | Care Asp Net C Developer Name | Role | Phone | + [...] | Internal | Her[place] | [address] | | | | | derangement | [place] | [place], | | | | | of right | [address] | [place] | | | | | shoulder | St [place] | [address] | | | | | Right | [place] | Phone: | | | | | shoulder | [address] | [phone] | | | | | pain, | Phone: | Fax: | | | | | unspecified | [phone] | [phone] | | | | | chronicity | Fax: | | | | | | Primary | [phone] | | | | | | osteoarthrit [...] (Primary Dx); Right | | | | [place], [place] | [place] [address] | shoulder pain, | | | | [address] | [phone] | unspecified | | | | [phone] | | chronicity; Primary | | | [...] [place] | | | | | | [address] | | | | | | [phone] | | | | | | | [...]
--- OUTSIDE RECORDS SUMMARY | ~2018-06-06 | XMS | Encounter Summary ---
Demographics + + + | Address | [address] | | | [place] [address] | + + + | Home Phone | | + + + | Preferred Language | Unknown | + + + | Marital Status | | + + + | Synagogue Affiliation | Unknown | + + + | Race | Unknown | + + + | Ethnic Group | Unknown | + + + Author + + + | Author | [facility] [place] | | | and Javyana | [...] [place] | | | | | [address] | | + + + + + Care Team Providers + +------+ + | Care Negative Turner Name | Role | Phone | + [...] | Internal | Heriberto | [address] | | | | | derangement | [place] | [place], | | | | | of right | [address] | [place] | | | | | shoulder | St [place] | [address] | | | | | Right | [place], [place] | Phone: | | | | | shoulder | [address] | [phone] | | | | | pain, | Phone: | Fax: | | | | | unspecified | [phone] | [phone] | | | | | chronicity | Fax: | | | | | | Primary | [phone] | | | | | | osteoarthrit [...] | Internal | Heriberto | [address] | | | | | derangement | [place] | [place], | | | | | of right | [address] | [place] | | | | | shoulder | St [place] | [address] | | | | | Right | [place], [place] | Phone: | | | | | shoulder | [address] | [phone] | | | | | pain, | Phone: | Fax: | | | | | unspecified | [phone] | [phone] | | | | | chronicity | Fax: | | | | | | Primary | [phone] | | | | | | osteoarthrit [...] | Internal | Heriberto | [address] | | | | | derangement | [place] | [place], | | | | | of right | [address] | [place] | | | | | shoulder | St [place] | [address] | | | | | Right | [place], [place] | Phone: | | | | | shoulder | [address] | [phone] | | | | | pain, | Phone: | Fax: | | | | | unspecified | [phone] | [phone] | | | | | chronicity | Fax: | | | | | | Primary | [phone] | | | | | | osteoarthrit [...] + + | 06/03/ | Hospital | [facility] | [place] | Internal derangement | | 2018 | Encounter | MED CTR MRI [address] | [place] [address] | of right shoulder; | | | | [address] [place], | [address] [place] | Right shoulder pain, | | | | [place] [address] | [place] [address] | unspecified | | | | [phone] | [phone] | chronicity; Primary | | | | [...] [place] | | | | | | [address] | | | | | | [phone] | | | | | | | [...] of AC joint.Dictated and Signed by: Fabien Luico MD Electronically signed: | | 06/03/2018 1:54 [...]
--- OUTSIDE RECORDS SUMMARY | ~2018-06-06 | XMS | Encounter Summary ---
Demographics + + + | Address | [address] | | | [place] [address] | + + + | Home Phone | | + + + | Preferred Language | Unknown | + + + | Marital Status | | + + + | Rastafarian Affiliation | Unknown | + + + | Race | Unknown | + + + | Ethnic Group | Unknown | + + + Author + + + | Author | [facility] | | | and Javyana [...] [place] | | | | | [address] | | + + + + + Care Team Providers + +------+ + | Care Wax Blender Name | Role | Phone | + [...] + + | 05/31/ | Emergency | [facility] | Joe Kong | Chronic right | | 2018 | | MED CTR EMERGENCY | MD Nain [address] | shoulder pain | | | | [place] [address] | [address] [facility] | (Primary Dx) | | | | [place], [place] | [place] [address] | | | | | [address] | [phone] | | | | | [phone] | | | +--------+ + + + [...] attachments cannot be sent through Care Everywhere.Renato (Monegasque)in this encounter Medications at Time of Discharge [...] [place] | | | | | | [address] | | | | | | [phone] | | | | | | | [...] | | | [place] | | | [id number] | | | [id number] | | | This | | | [...] | | | 178-01 | | | [id number] | | | d0cb | | | [...] | | | St. | | | [place] | | | y | | | [...] | | | r | | | [place] | | | , INDUSTRIAL ENG, | | | INDUSTRIAL ENG | | | Primar | | | [...] | | | St. | | | [place] | | | y | | | [...] ST. | | Urine | | | [facility] | | | | | [...] [address] | [place] | [phone] | | [facility] | | [address] | | | - LABORATORY | | | | + + + + + | [facility] | [address] | [place] | | | [facility] | | [address] | | | - LABORATORY | | | | + + + + + Urinalysis with Microscopic with Culture if Indicated (05/31/20181936) + + + + + | Component | Value | Ref Range | Performed At | + + + + + | COLOR | Yellow | Light Yellow, | [facility] | | | | Yellow, Straw | [facility] | | | [...] + + + + + | Specific [place] | 1.008 | 1.001 - 1.030 | [...] + | [facility] | [address] | [place], [place] | [phone] | | [facility] | | [address] | | | - LABORATORY | | | | + + + + + | [facility] | [address] | [place], [place] | | | [facility] | | [address] | | | - LABORATORY | | | | + + + + + Extra Lavender Top Tube (05/31/2018 1909) + +-------+ + + | Component | Value | Ref Range | Performed At | + +-------+ + + | Extra Lavender Top | Done | | [facility] | | Tube | | | [facility] | | | | | [...] + | [facility] | [address] | [place] | [phone] | | [facility] | | [address] | | | - LABORATORY | | | | + + + + + | [facility] | [address] | [place] | | | [facility] | | [address] | | | - LABORATORY | | | | + + + + + Extra Gold Top Tube (05/31/20181908) + +-------+ + + | Component | Value | Ref Range | Performed At | + +-------+ + + | EGDT | Done | | [facility] | | | | | [facility] [...] + | [facility] | [address] | [place] | [phone] | | [facility] | | [address] | | | - LABORATORY | | | | + + + + + | [facility] | [address] | [place] | | | [facility] | | [address] | | | - LABORATORY | | [...] + | [facility] | [address] | [place], [place] | [phone] | | [facility] | | [address] | | | - LABORATORY | | | | + + + + + | [facility] | [address] | [place], [place] | | | [facility] | | [address] | | | - LABORATORY | | [...] + | [facility] | [address] | [place] | [phone] | | [facility] | | [address] | | | - LABORATORY | | | | + + + + + | [facility] | [address] | [place] | | | [facility] | | [address] | | | - LABORATORY | | [...] + | [facility] | [address] | [place], [place] | [phone] | | [facility] | | [address] | | | - LABORATORY | | | | + + + + + | [facility] | [address] | [place], [place] | | | [facility] | | [address] | | | - LABORATORY | | | | + + + + + TSH (05/31/2018 1906) + + + + + | Component | Value | Ref Range | Performed At | + + + + + | TSH | 0.91Comment: This is a | 0.45 - 5.33 uIU/mL | [facility]. | | | third generation TSH | | [facility] | | | test. | [...] + | [facility] | [address] | [place] | [phone] | | [facility] | | [address] | | | - LABORATORY | | | | + + + + + | [facility] | [address] | [place], [place] | | | [facility] | | [address] | | | - LABORATORY | | [...] + | [facility] | [address] | [place] | [phone] | | [facility] | | [address] | | | - LABORATORY | | | | + + + + + | [facility] | [address] | [place] | | | [facility] | | [address] | | | - LABORATORY | | [...] [facility] | | | | | [facility] | | | | | CENTER - | | | | | LABORATORY | + + + + + | ANION GAP | 13 | 3 - 16 mmol/L | [facility] | | | | | [facility] | | | | | [...] 7 - 18 mg/dL | [facility]. | | | | | [facility] | | | | | CENTER - | | | | | LABORATORY | + + + + + | Creatinine, | 0.59 (L) | 0.60 - 1.30 mg/dL | [facility]. | | Serum/Plasma | | | [facility] | | | | | CENTER - | | | | | LABORATORY | + + + + + | eGFR if not | >60Comment: GLOMERULAR | >=60 mL/min/1.73m2 | [facility]. | | [place] | FILTRATION | | [facility] | | | RATE,ESTIMATED mL/min | | CENTER - | | | /1.78v7Akex than 60 | | LABORATORY | | [...] + | [facility] | [address] | [place] | [phone] | | [facility] | | [address] | | | - LABORATORY | | | | + + + + + | [facility] | [address] | [place], [place] | | | [facility] | | [address] | | | - LABORATORY | | [...] [facility] | | | | | [facility] [...] [address] | [place] | [phone] | | [facility] | | [address] | | | - LABORATORY | | | | + + + + + | [facility] | [address] | [place], [place] | | | [facility] | | [address] | | | - LABORATORY | | [...] | +---+---+ + +-------+ +------+---+---+ | ondansetron (ZOALEHTA LEET) | Given | | 4 mg [...]
--- OUTSIDE RECORDS SUMMARY | ~2018-06-06 | XMS | Encounter Summary ---
Demographics + + + | Address | [address] | | | [place] [address] | + + + | Home Phone | | + + + | Preferred Language | Unknown | + + + | Marital Status | | + + + | Voodoo Affiliation | Unknown | + + + | Race | Unknown | + + + | Ethnic Group | Unknown | + + + Author + + + | Author | [facility] | | | and Javyana | + + + | Organization | [facility] | | | [...] [place] | | | | | [address] | | + + + + + Care Team Providers + +------+ + | Care Drill Sharpener Name | Role | Phone | + [...] W | | | | | | [place], | | | | | | [place] [address] | | | | | | [phone] | | | +--------+ + + + [...] [place] | | | | | | [address] | | | | | | [phone] | | | | | | | | +--------+---------+ + + + as of this encounter Visit Diagnoses Not on filein this encounter
--- OUTSIDE RECORDS SUMMARY | ~2018-06-06 | XMS | Encounter Summary ---
Demographics + + + | Address | [address] | | | [place] [address] | + + + | Home Phone | | + + + | Preferred Language | Unknown | + + + | Marital Status | | + + + | Gnosticism Affiliation | Unknown | + + + | Race | Unknown | + + + | Ethnic Group | Unknown | + + + Author + + + | Author | [facility] | | | and Javyana | + + + | Organization | [facility] | | | [...] [place] | | | | | [address] | | + + + + + Care Team Providers + +------+ + | Care Yard Loader Operator Name | Role | Phone | [...] + | 05/05/ | Office | [facility] | Heriberto Laurent | Internal derangement | | 2018 | Visit | ORTHOPEDIC SURGERY | [address] | of right shoulder | | | | [address] | [address] [facility] | (Primary Dx); Right | | | | [place], [place] | [facility] [place] [address] | shoulder pain, | | | | [address] | [phone] | unspecified | | | | [phone] | | chronicity | +--------+---------+ + + [...] 12:14 This note was dictated using the [employer] voice recognition system. Minor errors in grammar [...] [place] | | | | | | [address] | | | | | | [phone] | | | | | | | | +--------+---------+ + + + as of this encounter Visit Diagnoses + + | Diagnosis | + + | Internal derangement of right shoulder - Primary | + + | Right shoulder pain, unspecified chronicity | + +"
[~2018-06-06 13:19] MED LIST changes: +TYLENOL WITH C1 EACH PO
--- OUTSIDE RECORDS SUMMARY | 2018-06-06 13:24 | XMS ---
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 Guidelines Date: 05/03/2018 Care Recommendation: Created On: 04/30/2016 16:06 Archived Care Plan: Board of Pharmacy Report: Dates investigated: 10/01/2011-11/04/2012 Total number of prescribing providers: 4 Total number of pharmacies: 2 Total number of prescriptions: 20 Plan of care: 1)Treat cautiously with potentially addictive medications for subjective pain complaints. 2)SW and CM to assist the pt in obtaining a PCP. 3)SW and CM to complete a needs assessment. 4) CC all encounters to Dr. Manuel Trejo, psychiatry. Additional care guidelines exist for the following facilities: [facility] Care ( 07/05/2017 ) [facility] ( 07/01/2017 ) Care History Infection/Chronic 06/30/2017 [facility] Hx of chronic pain- abdominal and shoulder. 06/30/2017 [facility] Hx of chronic pain- abdominal and shoulder. Medical/Surgical 11/05/2017 [facility] - Please contact Shy from [facility] if patient is seen at ED . - Patient is currently at a Detox Facility Care Recommendation: This patient has had 5 or more Emergency Department visits in the last 12 months. Patient requires education on the scope and purpose of the ED as an acute care provider not a Primary Care Provider and should not be utilized for chronic conditions. If patient returns to ED please contact Community Health WorkerJosephine at [phone]. These are guidelines and the provider should exercise clinical judgment when providing care. 06/30/2017 [facility] Diverticulosis HTN (hypertension) Hyperlipidemia Obesity CARDIAC CATHERIZATION COLONOSCOPY SHOULDER ARTHROSCOPY STOMACH SURGERY UPPER GASTROINTESTINAL ENDOSCOPY VENTRAL HERNIA REPAIR ? 06/30/2017 [facility] Diverticulosis HTN (hypertension) Hyperlipidemia Obesity CARDIAC CATHERIZATION COLONOSCOPY SHOULDER ARTHROSCOPY STOMACH SURGERY UPPER GASTROINTESTINAL ENDOSCOPY VENTRAL HERNIA REPAIR ? Substance Use/Overdose 06/30/2017 [facility] History of alcohol abuse, multiple ED visits for intoxication and withdrawl. History of marijuana use. Micheal VISIT COUNT (12 MO.) 7 [facility] 5 [facility] TOTAL 12 NOTE: Visits indicate total known visits. ED/C VISIT TRACKING (12 MO.) 06/06/2018 13:19 [facility] [place] TYPE: Emergency COMPLAINT: - RT SHOULDER PAIN 06/03/2018 22:35 [facility] [place] TYPE: Emergency DIAGNOSES: - Major depressive disorder, single episode, unspecified - Pain in right shoulder - Hypokalemia - Shoulder Pain - Suicidal ideations - Alcohol use, unspecified with intoxication, unspecified 05/31/2018 17:26 [facility] [place] TYPE: Emergency DIAGNOSES: - Pain in right shoulder - detox - Shoulder Pain - Detox Evaluation - Other chronic pain 11/09/2017 18:29 [facility] [place] TYPE: Emergency DIAGNOSES: - Alcohol Problem - Detox - Alcohol abuse, uncomplicated 11/06/2017 11:34 [facility] [place] TYPE: Emergency COMPLAINT: - RIGHT SIDED RIB PAIN/INJURY DIAGNOSES: - PURE HYPERCHOLESTEROLEMIA, UNSPECIFIED - Pleurodynia - Fall from chair, initial encounter - Personal history of nicotine dependence - Other senior living (current) drug therapy - Contusion of right front wall of thorax, initial encounter - Essential (primary) hypertension 11/03/2017 18:21 [facility] TYPE: Emergency COMPLAINT: - ABD PAIN DIAGNOSES: - Other senior living (current) drug therapy - Upper abdominal pain, unspecified - Personal history of nicotine dependence - Right upper quadrant pain - Essential (primary) hypertension 11/01/2017 10:29 [facility] TYPE: Emergency COMPLAINT: - FALL DIAGNOSES: - Personal history of nicotine dependence - Other rn long term care (current) drug therapy - Fall on same level from slipping, tripping and stumbling without subsequent striking against object, initial encounter - PURE HYPERCHOLESTEROLEMIA, UNSPECIFIED - Pain in right shoulder - Essential (primary) hypertension [facility] DIAGNOSES: - abd pain - Epigastric pain - Abdominal Pain - Alcohol dependence, uncomplicated - Other stimulant abuse, uncomplicated - Hypokalemia 07/12/2017 15:53 [facility] TYPE: Urgent Care DIAGNOSES: - Localized enlarged lymph nodes - Neck Pain 07/05/2017 03:57 [facility] TYPE: Emergency DIAGNOSES: - Overdose (Intentional) - Suicidal - Nonpsychotic mental disorder, unspecified 07/03/2017 21:38 [facility] TYPE: Emergency DIAGNOSES: - Anxiety - Poisoning by unspecified drugs, medicaments and biological substances, intentional self-harm, initial encounter - Anxiety; Intoxicated - Alcohol use, unspecified with intoxication, uncomplicated 06/30/2017 06:42 [facility] [place] TYPE: Emergency COMPLAINT: - CHEST PAIN DIAGNOSES: - Personal history of nicotine dependence - Essential (primary) hypertension - Precordial pain - Other rn long term care (current) drug therapy 06[facility]15/2017 10:[facility] [place] [facility]: [facility] DIAGNOSES: - Unspecified abdominal pain - abd pain - Abdominal Pain INPATIENT VISIT TRACKING (12 MO.) No inpatient visits to display in this time frame [email or web address]
[2018-06-06] MEDS ORDERED: ONDANSETRON ODT8 MG PO (13:47)
[2018-06-06] MEDS ORDERED: HYDROXYZINE HCL25 MG PO (13:48)
== END 2018-06-06 14:37 | disposition home or self-care (01) ==
LOC: ED 13:19
DX: M25.511 Pain in right shoulder (principal); I10 Essential (primary) hypertension; F17.200 Nicotine dependence, unspecified, uncomplicated; Z79.899 Other long term (current) drug therapy
CPT/HCPCS: 99283

== ENCOUNTER 2018-06-08 01:17 | Emergency (ER) | payer MEDICARE, OTHER ==
[~2018-06-08] VITALS: Ht 160 cm; Wt 95.2 kg
--- OUTSIDE RECORDS SUMMARY | ~2018-06-08 | XMS | Encounter Summary ---
Demographics + + + | Address | [address] | | | [place] [address] | + + + | Home Phone | | + + + | Preferred Language | Unknown | + + + | Marital Status | | + + + | Pentecostal Affiliation | Unknown | + + + | Race | Unknown | + + + | Ethnic Group | Unknown | + + + Author + + + | Author | [facility] | | | and Javyana | + + + | Organization | [facility] | | | and [...] [place] | | | | | [address] | | + + + + + Care Team Providers + +------+ + | Care Harbor Police Launch Commander Name | Role | Phone | + +------+ + | Neeru Leggett | PCP | | + +------+ + Reason for Visit + + + | Reason | Comments | + + + | Follow-up | right shoulder pain/ reivew MRI arthrogram | + + + Encounter Details +--------+---------+ + + + | Date | Type | Department | Care Team | Description | +--------+---------+ + + + | 05/05/ | Office | [facility] | Heriberto Laurent | Internal derangement | | 2018 | Visit | ORTHOPEDIC SURGERY | [address] | of right shoulder | | | | [address] | [address] [facility] | (Primary Dx); Right | | | | [place], [place] | [facility] [place] [address] | shoulder pain, | | | | [address] | [phone] | unspecified | | | | [phone] | | chronicity | +--------+---------+ + + + Social History + + [...] | + +---+---+---+ + + | Comments: 2 cigarettes/day | + + + + +---------+ + | Alcohol Use | Drinks/We | oz/Week | Comments | | | ek | | | + + +---------+ + | Yes | 2-3 | 1.2 - | daily, 24 oz cans | | | Cans of | 1.8 | | | | beer 0 | | | | | Standard | | | | | drinks or | | | | | | | | | | equivalen | | | | | t | | | + + +---------+ + + + + | Sex Assigned at | Date Recorded | | | | + + + | Not on file | | + + + as of this encounter Progress Notes Heriberto Laurent PA-C - 05/05/2018 1030 PDTFormatting of this note may be different fro m the original. Name:Pedro Marcos Todays Date: 05/05/2018 Age: 57 y.o. PCP: [facility] Chief Complaint Patient presents with Follow-up right shoulder pain/ reivew MRI arthrogram SUBJECTIVE: Patient returns today for follow-up of a chronic right shoulder pain and to review the MRI arthrogram which I previously had authorized in September 2017. Patient states that he has ob tained this imaging study however we have no clear reference or imaging study available. It does show there was ordered and approved but patient never sought the imaging study. He cohn s at the right shoulder pain continued to be problematic and x-ray worst of the past several months. He is continuing to find himself modifying his activities secondary to the pain. He does with Tylenol, gabapentin and Suboxone for pain control. Current level pain is rated at 4 OBJECTIVE: Obvious guarding of the right shoulder. Active abduction to about 80 and passive abducti on to about 85. He has a positive empty can and drop arm test secondary to pain. Less than 50% strength at the right shoulder when compared bilaterally. He also had prompted the lef t shoulder as well. Pain with Hawkin test. Pain over the acromioclavicular joint and at th e insertion of the superior spinous tendon into its humeral insertion distally. Imaging/Studies: No studies to review at this time. There were no vitals filed for this visit. ASSESSMENT/PLAN: 1. Internal derangement right shoulder 2. Chronic right shoulder pain A. patient once again needs to be thoroughly evaluated for right shoulder to include MRI a rthrogram of the right shoulder. This is previously authorized the patient did not get this . He progresses that he was in rehabilitation for alcoholism at this time and was unable to get the MRI arthrogram. I will cement medical authorization for a right shoulder MRI arthr ogram and follow-up will be once his imaging studies complete. Patient is unable to tolerat e any physical therapy secondary to the right shoulder pathology and wishes to defer any inj ection therapy for the most meantime being which I am agreeable given the obvious pathology at the right shoulder. B. Patient is advised that if they have any questions, comments or concerns to contact our office. Electronically signed by: Heriberto Laurent PA-C 05/05/2018 12:14 This note was dictated using the [employer] voice recognition system. Minor errors in grammar may have occurred. in this encounter Plan of Treatment +--------+---------+ + + + | Date | Type | Specialty | Care Team | Description | +--------+---------+ + + + | 06/17/ | Office | Orthopedic Surgery | Joe Collier, | | | 2018 | Visit | | MD Micaela PATEL | | | | | | [place] | | | | | | [address] | | | | | | [phone] | | | | | | | | +--------+---------+ + + + as of this encounter Visit Diagnoses + + | Diagnosis | + + | Internal derangement of right shoulder - Primary | + + | Right shoulder pain, unspecified chronicity | + +"
--- OUTSIDE RECORDS SUMMARY | ~2018-06-08 | XMS | Encounter Summary ---
Demographics + + + | Address | [address] | | | [place] [address] | + + + | Home Phone | | + + + | Preferred Language | Unknown | + + + | Marital Status | | + + + | Samaritan Affiliation | Unknown | + + + | Race | Unknown | + + + | Ethnic Group | Unknown | + + + Author + + + | Author | [facility] | | | and Javyana | + + + | Organization | [facility] | | | [...] [place] | | | | | [address] | | + + + + + Care Team Providers + +------+ + | Care Wire Welder Name | Role | Phone | + [...] + + | 05/05/ | Office | [facility] | Heriberto Laurent | Internal derangement | | 2018 | Visit | ORTHOPEDIC SURGERY | [address] | of right shoulder | | | | [address] | [address] [facility] | (Primary Dx); Right | | | | [place], [place] | [facility] [place] [address] | shoulder pain, | | | | [address] | [phone] | unspecified | | | | [phone] | | chronicity | +--------+---------+ + + [...] 12:14 This note was dictated using the [employer] voice recognition system. Minor errors in grammar [...] [place] | | | | | | [address] | | | | | | [phone] | | | | | | | | +--------+---------+ + + + as of this encounter Visit Diagnoses + + | Diagnosis | + + | Internal derangement of right shoulder - Primary | + + | Right shoulder pain, unspecified chronicity | + +"
--- OUTSIDE RECORDS SUMMARY | ~2018-06-08 | XMS | Encounter Summary ---
Demographics + + + | Address | [address] | | | [place] [address] | + + + | Home Phone | | + + + | Preferred Language | Unknown | + + + | Marital Status | | + + + | Voodoo Affiliation | Unknown | + + + | Race | Unknown | + + + | Ethnic Group | Unknown | + + + Author + + + | Author | [facility] | | | and Javyana | + + + | Organization | [facility] | | | [...] [place] | | | | | [address] | | + + + + + Care Team Providers + +------+ + | Care Abstract Manager Name | Role | Phone | + [...] W | | | | | | [place], | | | | | | [place] [address] | | | | | | [phone] | | | +--------+ + + + [...] [place] | | | | | | [address] | | | | | | [phone] | | | | | | | | +--------+---------+ + + + as of this encounter Visit Diagnoses Not on filein this encounter
--- OUTSIDE RECORDS SUMMARY | ~2018-06-08 | XMS | Clinical Summary ---
Demographics + + + | Address | [address] | | | [place] [address] | + + + | Home Phone | | + + + | Preferred Language | Unknown | + + + | Marital Status | | + + + | Baptist Affiliation | Unknown | + + + | Race | Unknown | + + + | Ethnic Group | Unknown | + + + Author + + + | Author | [facility] | | | and Javyana | + + + | Organization | [facility] | | | [...] [place] | | | | | [address] | | + + + + + Care Team Providers + +------+ + | Care Wire Spinner Name | Role | Phone | + [...] baclofen twice | | ER visit and PRODUCT ARCHITECT eval 07/03/17 and 07/05/17 | + + [...] outside recordsFinds good | | support w/ tenriism groups | + + + + + [...] unable to get detox | | at [facility] Assessment & Plan: Self medicates with ETOH when out of | | narcoticsVery dangerous behavior - advised on risksPatient | | declined referral to treatment or to meet with [facility] | |Per ER note again 06/15/2017 - still drinking; unable to get detox at [facility] | | | |Last Assessment & Plan: | |Self medicates with ETOH when out of narcotics | |Very dangerous behavior - advised on risks | |Patient declined referral to treatment or to meet with [facility] | + + + + + | Chronic pain of both shoulders | 04/12/2017 | + + + + + | Overview: Overview: Hx multiple RC surgeryOverview: L | | shoulder arthroscopy with subacromial decompression x 2 (2010 | | with Dr. Espinoza and re-injury with re-repair 2017 at | | [facility])Previously completed PTInjections - minimal reliefSee | | chronic painLast Assessment & Plan: Chronic shoulder pain with | | history of multiple shoulder surgeries and previous PT and | | injections. Referral placed to [facility] per patient | | preference | | | |Last Assessment & Plan: | |Chronic shoulder pain with history of multiple shoulder surgeries and previous PT and injec tions. Referral placed to [facility] per patient preference | + + + [...] + -+ | Overview: Overview: Followed by [facility]; chronic | | narcoticsHas and understands how to use NarcanOverview: Followed | | by [facility] [place]; chronic narcoticsHas and understands | | how [...] to discuss [facility] resources [facility] | [facility] to [facility] | | [...] | | surgeryDr. Lui referred him to [facility] for second opinion - | | pending first visit | |Multiple hernia repair. Followed by GI and surgery | |Dr. Lui referred him to [facility] for second opinion - pending first [...] [place] | | | | | | [address] | | | | | | [phone] | | | | | | | [...] | | | [place] | | | [id number] | | | [id number] | | | This | | | [...] | | | 178-01 | | | [id number] | | | [id number] | | | [...] | | | St. | | | [place] | | | y | | | [...] | | | r | | | [place] | | | , LADIES' LOCKER ROOM ATTENDANT, | | | LADIES' LOCKER ROOM ATTENDANT | | | Primar | | | [...] | | | fectio | | | n/Driller Machine | | | [id number]/ | | | [...] | | | St. | | | [place] | | | y | | | [...] | | | [place] | | | [id number] | | | [id number] | | | This | | | [...] | | | 178-01 | | | [id number] | | | d0cb | | | [...] | | | St. | | | [place] | | | y | | | [...] | | | r | | | [place] | | | , LADIES' LOCKER ROOM ATTENDANT, | | | LADIES' LOCKER ROOM ATTENDANT | | | Primar | | | [...] | | | St. | | | [place] | | | y | | | Hospit | | | al | | | Please | | | | | | contac | | | t | | | Attianna | | | ly | | | [...] with Microscopic with Culture if Indicated (06/03/2018 6945)Only the most recent of 2 results within [...] + + + + + | Specific [place] | 1.013 | 1.001 - 1.030 | [...] ST. | | | Indicated | | [facility] | | | | | CENTER - [...] [address] | [place] | [phone] | | [facility] | | [address] | | | - LABORATORY | | | | + + + + + | [facility] | [address] | [place] | | | [facility] | | [address] | | | - LABORATORY | | | | + + + + + Drugs of Abuse, Screen, Urine (06/03/2018 7255)Only the most recent of 2 results within the time period is included. + + + + + | Component | Value | Ref Range | Performed At | + + + + + | Amphetamine Screen, | Negative | Negative | [facility] | | Urine | | | [facility] | | | | | CENTER - | | | | | LABORATORY | + + + + + | Barbiturates Screen, | Negative | Negative | [facility] | | Urine | | | [facility] | | | | | CENTER [...] + | [facility] | [address] | [place] | [phone] | | [facility] | | [address] | | | - LABORATORY | | | | + + + + + | [facility] | [address] | [place] | | | [facility] | | [address] | | | - LABORATORY | | | | + + + + + CBC with Differential (06/03/2018 3679)Only the most recent of 2 results within the time chuy dietz is included. + +-------+ + + | Component | Value | Ref Range | Performed At | + +-------+ + + | WBC | 9.9 | 4.0 - 11.0 K/uL | [facility] | | | | | [facility] | | | | | CENTER - | | | | | LABORATORY | + +-------+ + + | RBC | 4.90 | 4.30 - 5.70 M/uL | [facility] | | | | | [facility] | | | | | CENTER - [...] [facility] | | | | | [facility] | | | | | CENTER [...] + | [facility] | [address] | [place], [place] | [phone] | | [facility] | | [address] | | | - LABORATORY | | | | + + + + + | [facility] | [address] | [place], [place] | | | [facility] | | [address] | | | - LABORATORY | | [...] | | third generation TSH | | [facility] | | | test. | | CENTER [...] + | [facility] | [address] | [place] | [phone] | | [facility] | | [address] | | | - LABORATORY | | | | + + + + + | [facility] | [address] | [place] | | | [facility] | | [address] | | | - LABORATORY | | | | + + + + + Ethanol (06/03/2018 5796)Only the most recent of 2 results within the time period is includ ed. + +-------+ + + | Component | Value | Ref Range | Performed At | + +-------+ + + | ALCOHOL, | 127 | <400 mg/dL | [facility] | | SERUM/PLASMA | | | [facility] | | | | | [place] - | | | | | LABORATORY | + +-------+ + + + + | Specimen | + + | Blood | + + + + + + + | Performing | Address | City/State/Zipcode | Phone Number | | Organization | | | | + + + + + | [facility] | [address] | [place] | [phone] | | [facility] | | [address] | | | - LABORATORY | | | | + + + + + | [facility] | [address] | [place] | | | [facility] | | [address] | | | - LABORATORY | | | | + + + + + Acetaminophen Level (06/03/2018 4454)Only the most recent of 2 results within the time heidi od is included. + +-------+ + + | Component | Value | Ref Range | Performed At | + +-------+ + + | Acetaminophen Level | <10 | <10 ug/mL | [facility] | | | | | [facility] [...] + | [facility] | [address] | [place] | [phone] | | [facility] | | [address] | | | - LABORATORY | | | | + + + + + | [facility] | [address] | [place] | | | [facility] | | [address] | | | - LABORATORY | | | | + + + + + Salicylate Level (06/03/2018 0105)Only the most recent of 2 results within the time period is included. + +-------+ + + | Component | Value | Ref Range | Performed At | + +-------+ + + | Salicylate Level | <4.0 | <30.0 mg/dL | [facility] | | | | | [facility] | | | | | CENTER - | | | | | LABORATORY | + +-------+ + + + + | Specimen | + + | Blood | + + + + + + + | Performing | Address | City/State/Zipcode | Phone Number | | Organization | | | | + + + + + | [facility] | [address] | [place], [place] | [phone] | | [facility] | | [address] | | | - LABORATORY | | | | + + + + + | [facility] | [address] | [place] | | | [facility] | | [address] | | | - LABORATORY | | | | + + + + + Comprehensive Metabolic Panel (06/03/2018 1947)Only the most recent of 2 results within [...] 9 | 7 - 18 mg/dL | [facility] | | | | | [facility] | | | | | CENTER - | | | | | LABORATORY | + + + + + | Creatinine, | 0.70 | 0.60 - 1.30 mg/dL | [facility] | | Serum/Plasma | | | [facility] | | | | | CENTER - | | | | | LABORATORY | + + + + + | eGFR if not | >60Comment: GLOMERULAR | >=60 mL/min/1.73m2 | [facility] | | MONTENEGRIN | FILTRATION | | [facility] | | | RATE,ESTIMATED mL/min | | CENTER - | | | /1.03y1Ymmg than 60 | | LABORATORY | | [...] | | appended report. These | | [facility] | | | results have been [...] + | [facility] | [address] | [place] | [phone] | | [facility] | | [address] | | | - LABORATORY | | | | + + + + + | [facility] | [address] | [place] | | | [facility] | | [address] | | | - LABORATORY | | [...] + | [facility] | [address] | [place], [place] | [phone] | | [facility] | | [address] | | | - LABORATORY | | | | + + + + + | [facility] | [address] | [place], [place] | | | [facility] | | [address] | | | - LABORATORY | | | | + + + + + Extra Gold Top Tube (05/31/20181908) + +-------+ + + | Component | Value | Ref Range | Performed At | + +-------+ + + | EGDT | Done | | [facility] | | | | | [facility] | | | | | CENTER - | | | | | LABORATORY | + +-------+ + + + + | Specimen | + + | Blood | + + + + + + + | Performing | Address | City/State/Zipcode | Phone Number | | Organization | | | | + + + + + | [facility] | [address] | [place], [place] | [phone] | | [facility] | | [address] | | | - LABORATORY | | | | + + + + + | [facility] | [address] | [place], [place] | | | [facility] | | [address] | | | - LABORATORY | | [...] + | [facility] | [address] | [place] | [phone] | | [facility] | | [address] | | | - LABORATORY | | | | + + + + + | [facility] | [address] | [place], [place] | | | [facility] | | [address] | | | - LABORATORY | | [...] +---------+ | [employer] | [employer] | [id number] | Indemn | | | | | NS | | ity | | | | | ADMIN | | | | | | | [place] | | | | | | | [place] | | | | | + +--------+ +--------+ +---------+ | MEDICARE | MEDICA | [id number] | Medica | [phone] | | | | RE | | re | [phone] | | | | PART A | | | | | | | AND B | | | | | + +--------+ +--------+ +---------+ | MEDICAID [place] | MEDICA | [id number] | Medica | [phone] | | [...] | | | lady | | | [phone] | [phone] | + +--------+ +--------+ + +
--- OUTSIDE RECORDS SUMMARY | ~2018-06-08 | XMS | Encounter Summary ---
Demographics + + + | Address | [address] | | | [place] [address] | + + + | Home Phone | | + + + | Preferred Language | Unknown | + + + | Marital Status | | + + + | Cheondoism Affiliation | Unknown | + + + | Race | Unknown | + + + | Ethnic Group | Unknown | + + + Author + + + | Author | [facility] | | | and Javyana | + + + | Organization | [facility] | | | [...] [place] | | | | | [address] | | + + + + + Care Team Providers + +------+ + | Care Metal Off Bearer Name | Role | Phone | + [...] W | | | | | | [place], | | | | | | [place] [address] | | | | | | [phone] | | | +--------+ + + + [...] [place] | | | | | | [address] | | | | | | [phone] | | | | | | | | +--------+---------+ + + + as of this encounter Visit Diagnoses Not on filein this encounter
--- OUTSIDE RECORDS SUMMARY | ~2018-06-08 | XMS | Clinical Summary ---
Demographics + + + | Address | [address] | | | [place] [address] | + + + | Home Phone | | + + + | Preferred Language | Unknown | + + + | Marital Status | | + + + | Uatsdin Affiliation | Unknown | + + + | Race | Unknown | + + + | Ethnic Group | Unknown | + + + Author + + + | Author | [facility] | + + + | Organization | [facility] | + + + | Address | Unknown | + + + | Phone | Unavailable | + + + Support + + +---------+ + | Name | Relationship | Address | Phone | + + +---------+ + | Mine Marcos | ECON | Unknown | | + + +---------+ + Care Team Providers + +------+ + | Care Chute Boss Name | Role | Phone | + [...]
--- OUTSIDE RECORDS SUMMARY | ~2018-06-08 | XMS | Encounter Summary ---
Demographics + + + | Address | [address] | | | [place] [address] | + + + | Home Phone | | + + + | Preferred Language | Unknown | + + + | Marital Status | | + + + | Mormonism Affiliation | Unknown | + + + | Race | Unknown | + + + | Ethnic Group | Unknown | + + + Author + + + | Author | [facility] | | | and Javyana | + + + | Organization | [facility] | | | and [...] [place] | | | | | [address] | | + + + + + Care Team Providers + +------+ + | Care Hydraulic Blocker Name | Role | Phone | + [...] + + | 05/31/ | Emergency | [facility] | Joe Kong | Chronic right | | 2018 | | MED CTR EMERGENCY | MD Nain [address] | shoulder pain | | | | IRAAN [address] | [facility] | (Primary Dx) | | | | [place], [place] | [place] [address] | | | | | [address] | [phone] | | | | | [phone] | | | +--------+ + + + [...] attachments cannot be sent through Care Everywhere.Renato (Lebanese)in this encounter Medications at Time of Discharge [...] [place] | | | | | | [address] | | | | | | [phone] | | | | | | | [...] | | | [place] | | | [id number] | | | [id number] | | | This | | | [...] | | | 178-01 | | | [id number] | | | d0cb | | | [...] | | | St. | | | [place] | | | y | | | [...] | | | r | | | Romance | | | , DRINK WAITER, | | | DRINK WAITER | | | Primar | | | [...] | | | St. | | | [place] | | | y | | | [...] ST. | | Urine | | | [facility] | | | | | CENTER [...] ST. | | Urine | | | [facility] | | | | | [...] [address] | [place] | [phone] | | [facility] | | [address] | | | - LABORATORY | | | | + + + + + | [facility] | [address] | [place] | | | [facility] | | [address] | | | - LABORATORY | | | | + + + + + Urinalysis with Microscopic with Culture if Indicated (05/31/20181936) + + + + + | Component | Value | Ref Range | Performed At | + + + + + | COLOR | Yellow | Light Yellow, | [facility] | | | | Yellow, Straw | [facility] | | | | | CENTER [...] + + + + + | Specific [place] | 1.008 | 1.001 - 1.030 | [...] + | [facility] | [address] | [place], [place] | [phone] | | [facility] | | [address] | | | - LABORATORY | | | | + + + + + | [facility] | [address] | [place], [place] | | | [facility] | | [address] | | | - LABORATORY | | | | + + + + + Extra Lavender Top Tube (05/31/2018 1909) + +-------+ + + | Component | Value | Ref Range | Performed At | + +-------+ + + | Extra Lavender Top | Done | | [facility] | | Tube | | | [facility] | | | | | [...] + | [facility] | [address] | [place] | [phone] | | [facility] | | [address] | | | - LABORATORY | | | | + + + + + | [facility] | [address] | [place] | | | [facility] | | [address] | | | - LABORATORY | | | | + + + + + Extra Gold Top Tube (05/31/20181908) + +-------+ + + | Component | Value | Ref Range | Performed At | + +-------+ + + | EGDT | Done | | [facility] | | | | | [facility] | | | | | CENTER - | | | | | LABORATORY | + +-------+ + + + + | Specimen | + + | Blood | + + + + + + + | Performing | Address | City/State/Zipcode | Phone Number | | Organization | | | | + + + + + | [facility] | [address] | [place] | [phone] | | [facility] | | [address] | | | - LABORATORY | | | | + + + + + | [facility] | [address] | [place] | | | [facility] | | [address] | | | - LABORATORY | | | | + + + + + Extra Blue Top Tube (05/31/20181908) + +-------+ + + | Component | Value | Ref Range | Performed At | + +-------+ + + | Extra Blue Top Tube | Done | | [facility] | | | | | [facility] | | | | | CENTER - | | | | | LABORATORY | + +-------+ + + + + | Specimen | + + | Blood | + + + + + + + | Performing | Address | City/State/Zipcode | Phone Number | | Organization | | | | + + + + + | [facility] | [address] | [place], [place] | [phone] | | [facility] | | [address] | | | - LABORATORY | | | | + + + + + | [facility] | [address] | [place], [place] | | | [facility] | | [address] | | | - LABORATORY | | | | + + + + + Salicylate Level (05/31/20181905) + +-------+ + + | Component | Value | Ref Range | Performed At | + +-------+ + + | Salicylate Level | <4.0 | <30.0 mg/dL | [facility] | | | | | [facility] [...] + | [facility] | [address] | [place] | [phone] | | [facility] | | [address] | | | - LABORATORY | | | | + + + + + | [facility] | [address] | [place] | | | [facility] | | [address] | | | - LABORATORY | | | | + + + + + Acetaminophen Level (05/31/20181905) + +-------+ + + | Component | Value | Ref Range | Performed At | + +-------+ + + | Acetaminophen Level | <10 | <10 ug/mL | [facility] | | | | | [facility] | | | | | CENTER - | | | | | LABORATORY | + +-------+ + + + + | Specimen | + + | Blood | + + + + + + + | Performing | Address | City/State/Zipcode | Phone Number | | Organization | | | | + + + + + | [facility] | [address] | [place], [place] | [phone] | | [facility] | | [address] | | | - LABORATORY | | | | + + + + + | [facility] | [address] | [place], [place] | | | [facility] | | [address] | | | - LABORATORY | | | | + + + + + TSH (05/31/2018 1906) + + + + + | Component | Value | Ref Range | Performed At | + + + + + | TSH | 0.91Comment: This is a | 0.45 - 5.33 uIU/mL | [facility]. | | | third generation TSH | | [facility] | | | test. | | [...] + | [facility] | [address] | [place] | [phone] | | [facility] | | [address] | | | - LABORATORY | | | | + + + + + | [facility] | [address] | [place], [place] | | | [facility] | | [address] | | | - LABORATORY | | | | + + + + + Ethanol (05/31/20181905) + +-------+ + + | Component | Value | Ref Range | Performed At | + +-------+ + + | ALCOHOL, | 163 | <400 mg/dL | [facility] | | SERUM/PLASMA | | | [facility] | | | | | CENTER - | | | | | LABORATORY | + +-------+ + + + + | Specimen | + + | Blood | + + + + + + + | Performing | Address | City/State/Zipcode | Phone Number | | Organization | | | | + + + + + | [facility] | [address] | [place] | [phone] | | [facility] | | [address] | | | - LABORATORY | | | | + + + + + | [facility] | [address] | [place] | | | [facility] | | [address] | | | - LABORATORY | | [...] [facility] | | | | | [facility] | | | | | CENTER - | | | | | LABORATORY | + + + + + | ANION GAP | 13 | 3 - 16 mmol/L | [facility] | | | | | [facility] | | | | | [...] (L) | 7 - 18 mg/dL | [facility]. | | | | | [facility] | | | | | CENTER - | | | | | LABORATORY | + + + + + | Creatinine, | 0.59 (L) | 0.60 - 1.30 mg/dL | [facility]. | | Serum/Plasma | | | [facility] | | | | | CENTER - | | | | | LABORATORY | + + + + + | eGFR if not | >60Comment: GLOMERULAR | >=60 mL/min/1.73m2 | [facility]. | | FIJIAN | FILTRATION | | [facility] | | | RATE,ESTIMATED mL/min | | CENTER - | | | /1.85r5Kyyf than 60 | | LABORATORY | | [...] + | [facility] | [address] | [place] | [phone] | | [facility] | | [address] | | | - LABORATORY | | | | + + + + + | [facility] | [address] | [place], [place] | | | [facility] | | [address] | | | - LABORATORY | | | | + + + + + CBC with Differential (05/31/20181905) + +-------+ + + | Component | Value | Ref Range | Performed At | + +-------+ + + | WBC | 9.4 | 4.0 - 11.0 K/uL | [facility] | | | | | [facility] | | | | | CENTER [...] [facility] | | | | | [facility] | | | | | CENTER [...] [address] | [place] | [phone] | | [facility] | | [address] | | | - LABORATORY | | | | + + + + + | [facility] | [address] | [place], [place] | | | [facility] | | [address] | | | - LABORATORY | | [...]
--- OUTSIDE RECORDS SUMMARY | ~2018-06-08 | XMS | Encounter Summary ---
Demographics + + + | Address | [address] | | | [place] [address] | + + + | Home Phone | | + + + | Preferred Language | Unknown | + + + | Marital Status | | + + + | Mormon Affiliation | Unknown | + + + | Race | Unknown | + + + | Ethnic Group | Unknown | + + + Author + + + | Author | [facility] | | | and Javyana | + + + | Organization | [facility] | | | and [place] | + + + | Address | Unknown | + + + | Phone | Unavailable | + + + Support + + + + + | Name | Relationship | Address | Phone | + + + + + | Arabelal Patel | ECON | Unknown | | + + + + + | [place] | ECON | [place] | | | | | [address] | | + + + + + Care Team Providers + +------+ + | Care Client Service Supervisor Name | Role | Phone | + +------+ + | Neeru Leggett | PCP | | + +------+ + Encounter Details +--------+ + + + + | Date | Type | Department | Care Team | Description | +--------+ + + + + | 06/03/ | Hospital | [facility] | Heriberto Laurent | Internal derangement | | 2018 | Encounter | MED CTR XRAY [address] | [address] | of right shoulder; | | | | [place] | [address] [place] | Right shoulder pain, | | | | [place] [address] | [place] [address] | unspecified | | | | [phone] | [phone] | chronicity; Primary | | | | [...] [place] | | | | | | [address] | | | | | | [phone] | | | | | | | [...] + + | Performing | Address | City/State/[facility] | Phone Number | | Organization [...]
--- OUTSIDE RECORDS SUMMARY | ~2018-06-08 | XMS | Encounter Summary ---
Demographics + + + | Address | [address] | | | [place] [address] | + + + | Home Phone | | + + + | Preferred Language | Unknown | + + + | Marital Status | | + + + | Amish Affiliation | Unknown | + + + | Race | Unknown | + + + | Ethnic Group | Unknown | + + + Author + + + | Author | [facility] | | | and Javyana [...] | + + + + + | Arbaella Patel | ECON | Unknown | | + + + + + | [place] | ECON | [place] | | | | | [address] | | + + + + + Care Team Providers + +------+ + | Care Cinder Man Name | Role | Phone | + [...] | Internal | Heriberto | [address] | | | | | derangement | [place] | [place], | | | | | of right | [address] | [place] | | | | | shoulder | St [place] | [address] | | | | | Right | [place], [place] | Phone: | | | | | shoulder | [address] | [phone] | | | | | pain, | Phone: | Fax: | | | | | unspecified | [phone] | [phone] | | | | | chronicity | Fax: | | | | | | Primary | [phone] | | | | | | osteoarthrit [...] (Primary Dx); Right | | | | [place], [place] | [place] [address] | shoulder pain, | | | | [address] | [phone] | unspecified | | | | [phone] | | chronicity; Primary | | | [...] [place] | | | | | | [address] | | | | | | [phone] | | | | | | | [...]
--- OUTSIDE RECORDS SUMMARY | ~2018-06-08 | XMS | Clinical Summary ---
Demographics + + + | Address | [address] | | | [place] [address] | + + + | Home Phone [...] + | Author | [facility] | | | and [...] [place] | | | | | [address] | | + + + + + Care Team Providers + +------+ + | Care Extruder Name | Role | Phone | + [...] baclofen twice | | ER visit and HEALTH INSURANCE ASSESSOR eval 07/03/17 and 07/05/17 | + + [...] outside recordsFinds good | | support w/ anabaptist groups | + + + + + [...] unable to get detox | | at [facility] Assessment & Plan: Self medicates with ETOH when out of | | narcoticsVery dangerous behavior - advised on risksPatient | | declined referral to treatment or to meet with [facility] | |Per ER note again 06/15/2017 - still drinking; [place] to get detox [place] | | | |Last Assessment & Plan: | |Self medicates with ETOH when out of narcotics | |Very dangerous behavior - advised on risks | |Patient declined referral to treatment or to meet with [facility] | + + + + + | Chronic pain of both shoulders | 04/12/2017 | + + + + + | Overview: Overview: Hx multiple RC surgeryOverview: L | | shoulder arthroscopy with subacromial decompression x 2 (2010 | | with Dr. Espinoza and re-injury with re-repair 2017 at | | [facility])Previously completed PTInjections - minimal reliefSee | | chronic painLast Assessment & Plan: Chronic shoulder pain with | | history of multiple shoulder surgeries and previous PT and | | injections. Referral placed to [facility] per patient | | preference | | | |Last Assessment & Plan: | |Chronic shoulder pain with history of multiple shoulder surgeries and previous PT and injec tions. Referral placed to [facility] per patient preference | + + [...] + -+ | Overview: Overview: Followed by [facility]; chronic | | narcoticsHas and understands how to use NarcanOverview: Followed | | by [facility]; chronic narcoticsHas and understands | | how [...] to discuss [facility] | [facility] to [facility] alternatives [...] | | surgeryDr. Lui referred him to [facility] for second opinion - | | pending first visit | |Multiple hernia repair. Followed by GI and surgery | |Dr. Lui referred him to [facility] for second opinion - pending first visit [...] [place] | | | | | | [address] | | | | | | [phone] | | | | | | | [...] | | | [place] | | | [id number] | | | [id number] | | | This | | | [...] | | | 178-01 | | | [id number] | | | d0cb | | | [...] | | | St. | | | [place] | | | y | | | [...] | | | r | | | [place] | | | , BIOLOGY MANAGER, | | | BIOLOGY MANAGER | | | Primar | | | [...] | | | fectio | | | n/Emt/Paramedic | | | nic10/ | | | [...] | | | St. | | | [place] | | | y | | | [...] | | | [place] | | | [id number] | | | [id number] | | | This | | | [...] | | | 178-01 | | | [id number] | | | d0cb | | | [...] | | | St. | | | [place] | | | y | | | [...] | | | r | | | [place] | | | , BIOLOGY MANAGER, | | | BIOLOGY MANAGER | | | Primar | | | [...] | | | St. | | | [place] | | | y | | | [...] with Microscopic with Culture if Indicated (06/03/2018 8119)Only the most recent of 2 results within [...] + + + + + | Specific [place] | 1.013 | 1.001 - 1.030 | [...] ST. | | | Indicated | | [facility] | [...] [address] | [place] | [phone] | | [facility] | | [address] | | | - LABORATORY | | | | + + + + + | [facility] | [address] | [place] | | | [facility] | | [address] | | | - LABORATORY | | | | + + + + + Drugs of Abuse, Screen, Urine (06/03/2018 1087)Only the most recent of 2 results within [...] ST. | | Urine | | | [facility] | | | | | [...] + | [facility] | [address] | [place] | [phone] | | [facility] | | [address] | | | - LABORATORY | | | | + + + + + | [facility] | [address] | [place] | | | [facility] | | [address] | | | - LABORATORY | | | | + + + + + CBC with Differential (06/03/2018 5455)Only the most recent of 2 results within [...] [facility] | | | | | [facility] | | | | | [...] + | [facility] | [address] | [place], [place] | [phone] | | [facility] | | [address] | | | - LABORATORY | | | | + + + + + | [facility] | [address] | [place], [place] | | | [facility] | | [address] | | | - LABORATORY | | [...] | | third generation TSH | | [facility] | | | test. | | CENTER [...] + | [facility] | [address] | [place] | [phone] | | [facility] | | [address] | | | - LABORATORY | | | | + + + + + | [facility] | [address] | [place] | | | [facility] | | [address] | | | - LABORATORY | | | | + + + + + Ethanol (06/03/2018 7982)Only the most recent of 2 results within the time period is includ ed. + +-------+ + + | Component | Value | Ref Range | Performed At | + +-------+ + + | ALCOHOL, | 127 | <400 mg/dL | [facility] | | SERUM/PLASMA | | | [facility] | | | | | [place] - | | | | | LABORATORY | + +-------+ + + + + | Specimen | + + | Blood | + + + + + + + | Performing | Address | City/State/Zipcode | Phone Number | | Organization | | | | + + + + + | [facility] | [address] | [place] | [phone] | | [facility] | | [address] | | | - LABORATORY | | | | + + + + + | [facility] | [address] | [place] | | | [facility] | | [address] | | | - LABORATORY | | | | + + + + + Acetaminophen Level (06/03/2018 5795)Only the most recent of 2 results within [...] + | [facility] | [address] | [place] | [phone] | | [facility] | | [address] | | | - LABORATORY | | | | + + + + + | [facility] | [address] | [place] | | | [facility] | | [address] | | | - LABORATORY | | | | + + + + + Salicylate Level (06/03/2018 4966)Only the most recent of 2 results within [...] + | [facility] | [address] | [place], [place] | [phone] | | [facility] | | [address] | | | - LABORATORY | | | | + + + + + | [facility] | [address] | [place] | | | [facility] | | [address] | | | - LABORATORY | | | | + + + + + Comprehensive Metabolic Panel (06/03/2018 7156)Only the most recent of 2 results within [...] 9 | 7 - 18 mg/dL | [facility] | | | | | [facility] | | | | | CENTER - | | | | | LABORATORY | + + + + + | Creatinine, | 0.70 | 0.60 - 1.30 mg/dL | [facility] | | Serum/Plasma | | | [facility] | | | | | CENTER - | | | | | LABORATORY | + + + + + | eGFR if not | >60Comment: GLOMERULAR | >=60 mL/min/1.73m2 | [facility] | | [place] | FILTRATION | | [facility] | | | RATE,ESTIMATED mL/min | | CENTER - | | | /1.38x4Qkdt than 60 | | LABORATORY | | [...] | | appended report. These | | [facility] | | | results have [...] + | [facility] | [address] | [place] | [phone] | | [facility] | | [address] | | | - LABORATORY | | | | + + + + + | [facility] | [address] | [place] | | | [facility] | | [address] | | | - LABORATORY | | [...] + | [facility] | [address] | [place], [place] | [phone] | | [facility] | | [address] | | | - LABORATORY | | | | + + + + + | [facility] | [address] | [place], [place] | | | [facility] | | [address] | | | - LABORATORY | | [...] + | [facility] | [address] | [place], [place] | [phone] | | [facility] | | [address] | | | - LABORATORY | | | | + + + + + | [facility] | [address] | [place], [place] | | | [facility] | | [address] | | | - LABORATORY | | [...] + | [facility] | [address] | [place] | [phone] | | [facility] | | [address] | | | - LABORATORY | | | | + + + + + | [facility] | [address] | [place], [place] | | | [facility] | | [address] | | | - LABORATORY | | [...] +---------+ | [facility] | [facility] | [id number] | Indemn | | | | | NS | | ity | | | | | ADMIN | | | | | | | [place] | | | | | | | [place] | | | | | + +--------+ +--------+ +---------+ | MEDICARE | MEDICA | [id number] | Medica | [phone] | | | | RE | | re | [phone] | | | | PART A | | | | | | | AND B | | | | | + +--------+ +--------+ +---------+ | MEDICAID [place] | MEDICA | [id number] | Medica | [phone] | | [...] | | | lady | | | [phone] | [phone] | + +--------+ +--------+ + +
--- OUTSIDE RECORDS SUMMARY | ~2018-06-08 | XMS | Encounter Summary ---
Demographics + + + | Address | [address] | | | [place] [address] | + + + | Home Phone | | + + + | Preferred Language | Unknown | + + + | Marital Status | | + + + | Church Affiliation | Unknown | + + + | Race | Unknown | + + + | Ethnic Group | Unknown | + + + Author + + + | Author | [facility] | | | and Javyana | + + + | Organization | [facility] | | [...] [place] | | | | | [address] | | + + + + + Care Team Providers + +------+ + | Care Pneumatic Jack Operator Name | Role | Phone | [...] + + | 06/03/ | Emergency | [facility] | Manuel Leggett, | Acute pain of right | | 2018 - | | MED CTR EMERGENCY | MD [address] | shoulder (Primary | | | | CENTER [address] | [facility] [place] | Dx); Depression, | | 06/04/ | | [place] | [place] [address] | unspecified | | 2017 | | [address] | [phone] | depression type; | | | | [phone] | | Suicidal ideation; | | | [...] with primary care Follow up at the [place] Follow-up with orthopedics Any additional prescription for pain medicine needs to come from one of your regular physic ians, not the ER The following attachments cannot be sent through Care Everywhere.Depression (Greek)Alcoho l Intoxication (Greek)Hypokalemia (Greek)Shoulder Problems (Greek)in this encounter Medications at Time of Discharge [...] [place] | | | | | | [address] | | | | | | [phone] | | | | | | | [...] | | | [place] | | | [id number] | | | [id number] | | | This | | | [...] | | | 178-01 | | | [id number] | | | d0cb | | | [...] | | | St. | | | [place] | | | y | | | [...] | | | r | | | Essie | | | , INFORMATION TECHNOLOGY AUDIT MANAGER, | | | INFORMATION TECHNOLOGY AUDIT MANAGER | | | Primar | | [...] | | | fectio | | | n/Top Knitter | | | nic10/ | | | [...] | | | St. | | | [place] | | | y | | | [...] | | | [phone] | | | [phone] | | | .These | | | [...] +---+--------+ in this encounter Results TSH (06/03/2018 1717) + + + + + | Component [...] [address] | [place] | [phone] | | [facility] | | [address] | | | - LABORATORY | | | | + + + + + | [facility] | [address] | [place] | | | [facility] | | [address] | | | - LABORATORY | | [...] + + + + + | Specific [place] | 1.013 | 1.001 - 1.030 | [...] + + | Performing | Address | City/[facility]/Zipcode | Phone Number | | Organization | | | | + + + + + | [facility] | [address] | [place], [place] | [phone] | | [facility] | | [address] | | | - LABORATORY | | | | + + + + + | [facility] | [address] | [place] | | | [facility] | | [address] | | | - LABORATORY | | | | + + + + + Drugs of Abuse, Screen, Urine (06/03/2018 1483) + + + + + | Component [...] + | [facility] | [address] | [place], [place] | [phone] | | [facility] | | [address] | | | - LABORATORY | | | | + + + + + | [facility] | [address] | [place], [place] | | | [facility] | | [address] | | | - LABORATORY | | [...] + | [facility] | [address] | [place] | [phone] | | [facility] | | [address] | | | - LABORATORY | | | | + + + + + | [facility] | [address] | [place] | | | [facility] | | [address] | | | - LABORATORY | | [...] + | [facility] | [address] | [place], [place] | [phone] | | [facility] | | [address] | | | - LABORATORY | | | | + + + + + | [facility] | [address] | [place], [place] | | | [facility] | | [address] | | | - LABORATORY | | [...] + | [facility] | [address] | [place] | [phone] | | [facility] | | [address] | | | - LABORATORY | | | | + + + + + | [facility] | [address] | [place] | | | [facility] | | [address] | | | - LABORATORY | | [...] >=60 mL/min/1.73m2 | [facility] | | MALIAN | FILTRATION | | [facility] | | | RATE,ESTIMATED mL/min | | CENTER - | | | /1.95n1Cfcr than 60 | | LABORATORY | | [...] | | appended report. These | | [facility] | | | results have been | | CENTER - | | | appended to a previously | | LABORATORY | | | preliminary verified | | | | | report. | | | + + + + + | Total protein | 6.9 | 6.0 - 7.8 g/dL | [facility] | | | | | [facility] | | | | | [...] | | appended report. These | | [facility] | | | results have been | | CENTER - | | | appended to a previously | | LABORATORY | | | preliminary verified | | | | | report. | | | + + + + + | GLOBULIN | 3.0 | 2.1 - 3.8 g/dL | [facility] | | | | | [facility] | | | | | CENTER - | | | | | LABORATORY | + + + + + | Albumin/Globulin | 1.3 | 0.8 - 2.0 | [facility] | | ratio | | | [facility] | | | | | CENTER - | | | | | LABORATORY | + + + + + | BUN/CREA | 12.9 | | [facility] | | | | | [facility] [...] [address] | [place] | [phone] | | [facility] | | [address] | | | - LABORATORY | | | | + + + + + | [facility] | [address] | [place] | | | [facility] | | [address] | | | - LABORATORY | | | | + + + + + CBC with Differential (06/03/20182253) + +-------+ + + | Component | Value | Ref Range | Performed At | + +-------+ + + | WBC | 9.9 | 4.0 - 11.0 K/uL | [facility]. | | | | | [facility] | | | | | CENTER - | | | | | LABORATORY | + +-------+ + + | RBC | 4.90 | 4.30 - 5.70 M/uL | [facility]. | | | | | [facility] [...] [facility] | | | | | [facility] | | | | | [...] + | [facility] | [address] | [place], [place] | [phone] | | [facility] | | [address] | | | - LABORATORY | | | | + + + + + | [facility] | [address] | [place], [place] | | | [facility] | | [address] | | | - LABORATORY | | [...]
--- OUTSIDE RECORDS SUMMARY | ~2018-06-08 | XMS | Encounter Summary ---
Demographics + + + | Address | [address] | | | [place] [address] | + + + | Home Phone | | + + + | Preferred Language | Unknown | + + + | Marital Status | | + + + | Quaker Affiliation | Unknown | + + + | Race | Unknown | + + + | Ethnic Group | Unknown | + + + Author + + + | Author | [facility] | | | and Javyana | + + + | Organization | [facility] | | [...] [place] | | | | | [address] | | + + + + + Care Team Providers + +------+ + | Care Sales Order Specialist Name | Role | Phone | [...] Closed | | Radiology | Diagnoses | Naastasiia, | [facility] | | | | | Internal | [place] | [address] | | | | | derangement | [place] | [place], | | | | | of right | [address] | [place] | | | | | shoulder | St [place] | [address] | | | | | Right | [place], [place] | Phone: | | | | | shoulder | [address] | [phone] | | | | | pain, | Phone: | Fax: | | | | | unspecified | [phone] | [phone] | | | | | chronicity | Fax: | | | | | | Primary | [phone] | | | | | | osteoarthrit [...] | Internal | [place] | [address] | | | | | derangement | [place] | [place], | | | | | of right | [address] | [place] | | | | | shoulder | St [place] | [address] | | | | | Right | [place], [place] | Phone: | | | | | shoulder | [address] | [phone] | | | | | pain, | Phone: | Fax: | | | | | unspecified | [phone] | [phone] | | | | | chronicity | Fax: | | | | | | Primary | [phone] | | | | | | osteoarthrit [...] | Internal | [place] | [address] | | | | | derangement | [place] | [place], | | | | | of right | [address] | [place] | | | | | shoulder | St [place] | [address] | | | | | Right | [place], [place] | Phone: | | | | | shoulder | [address] | [phone] | | | | | pain, | Phone: | Fax: | | | | | unspecified | [phone] | [phone] | | | | | chronicity | Fax: | | | | | | Primary | [phone] | | | | | | osteoarthrit [...] + + | 06/03/ | Hospital | [facility] | [place] | Internal derangement | | 2018 | Encounter | MED CTR MRI [address] | [place] [address] | of right shoulder; | | | | [address] [place], | [address] [place] | Right shoulder pain, | | | | [place] [address] | [place] [address] | unspecified | | | | [phone] | [phone] | chronicity; Primary | | | | [...] [place] | | | | | | [address] | | | | | | [phone] | | | | | | | [...]
--- OUTSIDE RECORDS SUMMARY | ~2018-06-08 | XMS | Clinical Summary ---
Demographics + + + | Address | [address] | | | [place] [address] | + + + | Home Phone | | + + + | Preferred Language | Unknown | + + + | Marital Status | | + + + | Jehovah'S Witness Affiliation | Unknown | + + + | Race | Unknown | + + + | Ethnic Group | Unknown | + + + Author + + + | Author | [facility] | + + + | Organization | [facility] | + + + | Address | Unknown | + + + | Phone | Unavailable | + + + Support + + +---------+ + | Name | Relationship | Address | Phone | + + +---------+ + | Mine Marcos | ECON | Unknown | | + + +---------+ + Care Team Providers + +------+ + | Care Cat Swamper Name | Role | Phone | + [...]
--- OUTSIDE RECORDS SUMMARY | ~2018-06-08 | XMS | Encounter Summary ---
Demographics + + + | Address | [address] | | | [place] [address] | + + + | Home Phone [...] | Author | [facility] | | | and [...] [place] | | | | | [address] | | + + + + + Care Team Providers + +------+ + | Care Health It Specialist Name | Role | Phone | [...] + + | 05/31/ | Emergency | [facility] | Joe Kong | Chronic right | | 2018 | | MED CTR EMERGENCY | MD Nain [address] | shoulder pain | | | | NARA VISA [address] | [address] [facility] | (Primary Dx) | | | | [place], [place] | [place] [address] | | | | | [address] | [phone] | | | | | [phone] | | | +--------+ + + + [...] attachments cannot be sent through Care Everywhere.Renato (South Korean)in this encounter Medications at Time of Discharge [...] | 2018 | Visit | | MD Micaeal TURNER | | | | | | [place] | | | | | | [address] | | | | | | [phone] | | | | | | | [...] | | | [place] | | | [id number] | | | [id number] | | | This | | | [...] | | | 178-01 | | | [id number] | | | d0cb | | | [...] | | | St. | | | [place] | | | y | | | [...] | | | r | | | [place] | | | , SET UP OPERATOR, | | | SET UP OPERATOR | | | Primar | | [...] | | | St. | | | [place] | | | y | | | [...] ST. | | Urine | | | [facility] | | | | | [...] [address] | [place] | [phone] | | [facility] | | [address] | | | - LABORATORY | | | | + + + + + | [facility] | [address] | [place] | | | [facility] | | [address] | | | - LABORATORY | | | | + + + + + Urinalysis with Microscopic with Culture if Indicated (05/31/20181936) + + + + + | Component | Value | Ref Range | Performed At | + + + + + | COLOR | Yellow | Light Yellow, | [facility] | | | | Yellow, Straw | [facility] | | | | | [...] + + + + + | Specific [place] | 1.008 | 1.001 - 1.030 | [...] + | [facility] | [address] | [place], [place] | [phone] | | [facility] | | [address] | | | - LABORATORY | | | | + + + + + | [facility] | [address] | [place], [place] | | | [facility] | | [address] | | | - LABORATORY | | | | + + + + + Extra Lavender Top Tube (05/31/2018 1909) + +-------+ + + | Component | Value | Ref Range | Performed At | + +-------+ + + | Extra Lavender Top | Done | | [facility] | | Tube | | | [facility] [...] + | [facility] | [address] | [place] | [phone] | | [facility] | | [address] | | | - LABORATORY | | | | + + + + + | [facility] | [address] | [place] | | | [facility] | | [address] | | | - LABORATORY | | | | + + + + + Extra Gold Top Tube (05/31/20181908) + +-------+ + + | Component | Value | Ref Range | Performed At | + +-------+ + + | EGDT | Done | | [facility] | | | | | [facility] | | | | | [...] + | [facility] | [address] | [place] | [phone] | | [facility] | | [address] | | | - LABORATORY | | | | + + + + + | [facility] | [address] | [place] | | | [facility] | | [address] | | | - LABORATORY | | | | + + + + + Extra Blue Top Tube (05/31/20181908) + +-------+ + + | Component | Value | Ref Range | Performed At | + +-------+ + + | Extra Blue Top Tube | Done | | [facility] | | | | | [facility] | | | | | [...] + | [facility] | [address] | [place], [place] | [phone] | | [facility] | | [address] | | | - LABORATORY | | | | + + + + + | [facility] | [address] | [place], [place] | | | [facility] | | [address] | | | - LABORATORY | | [...] + | [facility] | [address] | [place] | [phone] | | [facility] | | [address] | | | - LABORATORY | | | | + + + + + | [facility] | [address] | [place] | | | [facility] | | [address] | | | - LABORATORY | | | | + + + + + Acetaminophen Level (05/31/20181905) + +-------+ + + | Component | Value | Ref Range | Performed At | + +-------+ + + | Acetaminophen Level | <10 | <10 ug/mL | [facility] | | | | | [facility] | | | | | [...] + | [facility] | [address] | [place], [place] | [phone] | | [facility] | | [address] | | | - LABORATORY | | | | + + + + + | [facility] | [address] | [place], [place] | | | [facility] | | [address] | | | - LABORATORY | | | | + + + + + TSH (05/31/2018 1906) + + + + + | Component | Value | Ref Range | Performed At | + + + + + | TSH | 0.91Comment: This is a | 0.45 - 5.33 uIU/mL | [facility]. | | | third generation TSH | | [facility] | | | test. | [...] + | [facility] | [address] | [place] | [phone] | | [facility] | | [address] | | | - LABORATORY | | | | + + + + + | [facility] | [address] | [place], [place] | | | [facility] | | [address] | | | - LABORATORY | | | | + + + + + Ethanol (05/31/20181905) + +-------+ + + | Component | Value | Ref Range | Performed At | + +-------+ + + | ALCOHOL, | 163 | <400 mg/dL | [facility] | | SERUM/PLASMA | | | [facility] | | | | | [...] + | [facility] | [address] | [place] | [phone] | | [facility] | | [address] | | | - LABORATORY | | | | + + + + + | [facility] | [address] | [place] | | | [facility] | | [address] | | | - LABORATORY | | [...] (L) | 7 - 18 mg/dL | [facility]. | | | | | [facility] | | | | | CENTER - | | | | | LABORATORY | + + + + + | Creatinine, | 0.59 (L) | 0.60 - 1.30 mg/dL | [facility]. | | Serum/Plasma | | | [facility] | | | | | CENTER - | | | | | LABORATORY | + + + + + | eGFR if not | >60Comment: GLOMERULAR | >=60 mL/min/1.73m2 | [facility]. | | FAROESE | FILTRATION | | [facility] | | | RATE,ESTIMATED mL/min | | CENTER - | | | /1.38d7Uhnt than 60 | | LABORATORY | | [...] + | [facility] | [address] | [place] | [phone] | | [facility] | | [address] | | | - LABORATORY | | | | + + + + + | [facility] | [address] | [place], [place] | | | [facility] | | [address] | | | - LABORATORY | | | | + + + + + CBC with Differential (05/31/20181905) + +-------+ + + | Component | Value | Ref Range | Performed At | + +-------+ + + | WBC | 9.4 | 4.0 - 11.0 K/uL | [facility] | | | | | [facility] | | | | | [...] [facility] | | | | | [facility] | | | | | [...] [address] | [place] | [phone] | | [facility] | | [address] | | | - LABORATORY | | | | + + + + + | [facility] | [address] | [place], [place] | | | [facility] | | [address] | | | - LABORATORY | | [...]
--- OUTSIDE RECORDS SUMMARY | ~2018-06-08 | XMS | Encounter Summary ---
Demographics + + + | Address | [address] | | | [place] [address] | + + + | Home Phone | | + + + | Preferred Language | Unknown | + + + | Marital Status | | + + + | Taoism Affiliation | Unknown | + + + | Race | Unknown | + + + | Ethnic Group | Unknown | + + + Author + + + | Author | [facility] | | | and Javyana | + + + | Organization | [facility] | | [...] [place] | | | | | [address] | | + + + + + Care Team Providers + +------+ + | Care Coater Operator Insulation Board Name | Role | Phone | + [...] | Internal | Heriberto | [address] | | | | | derangement | [place] | [place], | | | | | of right | [address] | [place] | | | | | shoulder | St [place] | [address] | | | | | Right | [place], [place] | Phone: | | | | | shoulder | [address] | [phone] | | | | | pain, | Phone: | Fax: | | | | | unspecified | [phone] | [phone] | | | | | chronicity | Fax: | | | | | | Primary | [phone] | | | | | | osteoarthrit [...] (Primary Dx); Right | | | | [place], [place] | [place] [address] | shoulder pain, | | | | [address] | [phone] | unspecified | | | | [phone] | | chronicity; Primary | | | [...] [place] | | | | | | [address] | | | | | | [phone] | | | | | | | [...]
--- OUTSIDE RECORDS SUMMARY | ~2018-06-08 | XMS | Encounter Summary ---
Demographics + + + | Address | [address] | | | [place] [address] | + + + | Home Phone [...] Author | [facility] | | | and [...] [place] | | | | | [address] | | + + + + + Care Team Providers + +------+ + | Care Casing In Line Setter Name | Role | Phone | + +------+ + | Neeru Leggett | PCP | | + +------+ + Encounter Details +--------+ + + + + | Date | Type | Department | Care Team | Description | +--------+ + + + + | 06/03/ | Hospital | [facility] | [place] | Internal derangement | | 2018 | Encounter | MED CTR XRAY [address] | [place] [address] | of right shoulder; | | | | [place] | [address] [place] | Right shoulder pain, | | | | [place] [address] | [place] [address] | unspecified | | | | [phone] | [phone] | chronicity; Primary | | | | [...] [place] | | | | | | [address] | | | | | | [phone] | | | | | | | [...] + + | Performing | Address | City/State[facility] | Phone Number | | Organization | [...]
--- OUTSIDE RECORDS SUMMARY | ~2018-06-08 | XMS | Encounter Summary ---
Demographics + + + | Address | [address] | | | [place] [address] | + + + | Home Phone | | + + + | Preferred Language | Unknown | + + + | Marital Status | | + + + | Confucianist Affiliation | Unknown | + + + | Race | Unknown | + + + | Ethnic Group | Unknown | + + + Author + + + | Author | [facility] | | | and Javyana | + + + | Organization | [facility] | | | [...] [place] | | | | | [address] | | + + + + + Care Team Providers + +------+ + | Care Safety Sitter Name | Role | Phone | + [...] | Internal | Heriberto | [address] | | | | | derangement | [place] | [place], | | | | | of right | [address] | [place] | | | | | shoulder | St [place] | [address] | | | | | Right | [place], [place] | Phone: | | | | | shoulder | [address] | [phone] | | | | | pain, | Phone: | Fax: | | | | | unspecified | [phone] | [phone] | | | | | chronicity | Fax: | | | | | | Primary | [phone] | | | | | | osteoarthrit [...] | Internal | Heriberto | [address] | | | | | derangement | [place] | [place], | | | | | of right | [address] | [place] | | | | | shoulder | St [place] | [address] | | | | | Right | [place], [place] | Phone: | | | | | shoulder | [address] | [phone] | | | | | pain, | Phone: | Fax: | | | | | unspecified | [phone] | [phone] | | | | | chronicity | Fax: | | | | | | Primary | [phone] | | | | | | osteoarthrit [...] | Internal | Heriberto | [address] | | | | | derangement | [place] | [place], | | | | | of right | [address] | [place] | | | | | shoulder | St [place] | [address] | | | | | Right | [place] | Phone: | | | | | shoulder | [address] | [phone] | | | | | pain, | Phone: | Fax: | | | | | unspecified | [phone] | [phone] | | | | | chronicity | Fax: | | | | | | Primary | [phone] | | | | | | osteoarthrit [...] + + | 06/03/ | Hospital | [facility] | Heriberto Laurent | Internal derangement | | 2018 | Encounter | MED CTR MRI [address] | [address] | of right shoulder; | | | | [place], | [address] [place] | Right shoulder pain, | | | | [place] [address] | [place] [address] | unspecified | | | | [phone] | [phone] | chronicity; Primary | | | | [...] [place] | | | | | | [address] | | | | | | [phone] | | | | | | | [...]
--- OUTSIDE RECORDS SUMMARY | ~2018-06-08 | XMS | Encounter Summary ---
Demographics + + + | Address | [address] | | | [place] [address] | + + + | Home Phone | | + + + | Preferred Language | Unknown | + + + | Marital Status | | + + + | Adventist Affiliation | Unknown | + + + | Race | Unknown | + + + | Ethnic Group | Unknown | + + + Author + + + | Author | [facility] | | | and Javyana | + + + | Organization | [facility] | | | and [...] [place] | | | | | [address] | | + + + + + Care Team Providers + +------+ + | Care Woodwind Instruments Inspector Name | Role | Phone | [...] + + | 06/03/ | Emergency | [facility] | Manuel Leggett, | Acute pain of right | | 2018 - | | [facility] | MD [address] | shoulder (Primary | | | | CENTER [address] | [facility] | Dx); Depression, | | 06/04/ | | [place] | [place] [address] | unspecified | | 2017 | | [address] | [phone] | depression type; | | | | [phone] | | Suicidal ideation; | | | [...] with primary care Follow up at the [place] Follow-up with orthopedics Any additional prescription for pain medicine needs to come from one of your regular physic ians, not the ER The following attachments cannot be sent through Care Everywhere.Depression (Georgian)Alcoho l Intoxication (Georgian)Hypokalemia (Georgian)Shoulder Problems (Georgian)in this encounter Medications at Time of Discharge [...] [place] | | | | | | [address] | | | | | | [phone] | | | | | | | [...] | | | PEDRO | | | [id number] | | | [id number] | | | This | | | [...] | | | 178-01 | | | [id number] | | | [id number] | | | [...] | | | St. | | | [place] | | | y | | | [...] | | | r | | | [place] | | | , ELECTRICAL ENGINEERING INTERN, | | | ELECTRICAL ENGINEERING INTERN | | | Primar | | | [...] | | | fectio | | | n/Glass Breaker | | | nic10/ | | | [...] | | | St. | | | [place] | | | y | | | [...] | | | [phone] | | | [phone] | | | .These | | | [...] +---+--------+ in this encounter Results TSH (06/03/2018 8826) + + + + + | Component [...] [address] | [place] | [phone] | | [facility] | | [address] | | | - LABORATORY | | | | + + + + + | [facility] | [address] | [place] | | | [facility] | | [address] | | | - LABORATORY | | | | + + + + + Urinalysis with Microscopic with Culture if Indicated (06/03/20182253) + + + + + | Component | Value | Ref Range | Performed At | + + + + + | COLOR | Yellow | Light Yellow, | [facility] | | | | Yellow, Straw | [facility] | | | | | CENTER [...] + + + + + | Specific [place] | 1.013 | 1.001 - 1.030 | [...] + + | Performing | Address | City/[facility]/Zipcode | Phone Number | | Organization | | | | + + + + + | [facility] | [address] | [place], [place] | [phone] | | [facility] | | [address] | | | - LABORATORY | | | | + + + + + | [facility] | [address] | [place] | | | [facility] | | [address] | | | - LABORATORY | | | | + + + + + Drugs of Abuse, Screen, Urine (06/03/2018 9799) + + + + + | Component | Value | Ref Range | Performed At | + + + + + | Amphetamine Screen, | Negative | Negative | [facility] | | Urine | | | [facility] | | | | | CENTER - | | | | | LABORATORY | + + + + + | Barbiturates Screen, | Negative | Negative | [facility] | | Urine | | | [facility] | | | | | CENTER [...] + | [facility] | [address] | [place], [place] | [phone] | | [facility] | | [address] | | | - LABORATORY | | | | + + + + + | [facility] | [address] | [place], [place] | | | [facility] | | [address] | | | - LABORATORY | | [...] + | [facility] | [address] | [place] | [phone] | | [facility] | | [address] | | | - LABORATORY | | | | + + + + + | [facility] | [address] | [place] | | | [facility] | | [address] | | | - LABORATORY | | | | + + + + + Salicylate Level (06/03/20182253) + +-------+ + + | Component | Value | Ref Range | Performed At | + +-------+ + + | Salicylate Level | <4.0 | <30.0 mg/dL | [facility] | | | | | [facility] | | | | | CENTER - | | | | | LABORATORY | + +-------+ + + + + | Specimen | + + | Blood | + + + + + + + | Performing | Address | City/State/Zipcode | Phone Number | | Organization | | | | + + + + + | [facility] | [address] | [place], [place] | [phone] | | [facility] | | [address] | | | - LABORATORY | | | | + + + + + | [facility] | [address] | [place], [place] | | | [facility] | | [address] | | | - LABORATORY | | | | + + + + + Ethanol (06/03/20182253) + +-------+ + + | Component | Value | Ref Range | Performed At | + +-------+ + + | ALCOHOL, | 127 | <400 mg/dL | [facility] | | SERUM/PLASMA | | | [facility] | | | | | CENTER - | | | | | LABORATORY | + +-------+ + + + + | Specimen | + + | Blood | + + + + + + + | Performing | Address | City/State/Zipcode | Phone Number | | Organization | | | | + + + + + | [facility] | [address] | [place] | [phone] | | [facility] | | [address] | | | - LABORATORY | | | | + + + + + | [facility] | [address] | [place] | | | [facility] | | [address] | | | - LABORATORY | | | | + + + + + Comprehensive Metabolic Panel (06/03/20182253) + + + + + | Component | Value | Ref Range | Performed At | + + + + + | NA | 140 | 136 - 149 mmol/L | [facility] | | | | | [facility] | | | | | CENTER [...] >=60 mL/min/1.73m2 | [facility] | | MALAWIAN | FILTRATION | | [facility] | | | RATE,ESTIMATED mL/min | | CENTER - | | | /1.86l0Blqa than 60 | | LABORATORY | | [...] [facility] | | | | | [facility] | | | | | CENTER [...] | | appended report. These | | [facility] | | | results have been | | CENTER - | | | appended to a previously | | LABORATORY | | | preliminary verified | | | | | report. | | | + + + + + | Total protein | 6.9 | 6.0 - 7.8 g/dL | [facility] | | | | | [facility] | | | | | CENTER [...] | | appended report. These | | [facility] | | | results have been | | CENTER - | | | appended to a previously | | LABORATORY | | | preliminary verified | | | | | report. | | | + + + + + | GLOBULIN | 3.0 | 2.1 - 3.8 g/dL | [facility] | | | | | [facility] | | | | | CENTER - | | | | | LABORATORY | + + + + + | Albumin/Globulin | 1.3 | 0.8 - 2.0 | [facility] | | ratio | | | [facility] | | | | | CENTER - | | | | | LABORATORY | + + + + + | BUN/CREA | 12.9 | | [facility] | | | | | [facility] | | | | | CENTER [...] [address] | [place] | [phone] | | [facility] | | [address] | | | - LABORATORY | | | | + + + + + | [facility] | [address] | [place] | | | [facility] | | [address] | | | - LABORATORY | | | | + + + + + CBC with Differential (06/03/20182253) + +-------+ + + | Component | Value | Ref Range | Performed At | + +-------+ + + | WBC | 9.9 | 4.0 - 11.0 K/uL | [facility]. | | | | | [facility] | | | | | CENTER - | | | | | LABORATORY | + +-------+ + + | RBC | 4.90 | 4.30 - 5.70 M/uL | [facility]. | | | | | [facility] | | | | | CENTER [...] [facility] | | | | | [facility] | | | | | CENTER [...] + | [facility] | [address] | [place], [place] | [phone] | | [facility] | | [address] | | | - LABORATORY | | | | + + + + + | [facility] | [address] | [place], [place] | | | [facility] | | [address] | | | - LABORATORY | | [...]
[~2018-06-08 01:17] MED LIST changes: +HYDROXYZINE HCL25 MG PO; +ONDANSETRON ODT8 MG PO
--- OUTSIDE RECORDS SUMMARY | 2018-06-08 01:22 | XMS ---
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 Security Paedodontist Events No recent Security Events currently on file CRITERIA MET - [facility] - Has Care Guidelines - [facility] - 2 Visits in 30 Days CARE PROVIDERS jairon santiago Current PHONE: [phone] TITI Verdin Primary Care Current PHONE: [phone] Primary Care Primary Care Current PHONE: [phone] Hien Neal Primary Care Current PHONE: Unknown Guidelines Source: [facility] Guidelines Date: 05/03/2018 Care Recommendation: Created On: [...] care guidelines exist for the following facilities: [facility] Care ( 07/05/2017 ) [facility] ( 07/01/2017 ) Care History Infection/Chronic 06/30/2017 [facility] Hx of chronic pain- abdominal and shoulder. 06/30/2017 [facility] Hx of chronic pain- abdominal and shoulder. Medical/Surgical 11/05/2017 [facility] - Please contact Shy from [facility] if patient is seen at ED . [...] ED please contact Community Health WorkerJosephine at [phone]. These are guidelines and the provider should exercise clinical judgment when providing care. 06/30/2017 [facility] Diverticulosis HTN (hypertension) Hyperlipidemia Obesity CARDIAC CATHERIZATION COLONOSCOPY SHOULDER ARTHROSCOPY STOMACH SURGERY UPPER GASTROINTESTINAL ENDOSCOPY VENTRAL HERNIA REPAIR ? 06/30/2017 [facility] Diverticulosis HTN (hypertension) Hyperlipidemia Obesity CARDIAC CATHERIZATION COLONOSCOPY SHOULDER ARTHROSCOPY STOMACH SURGERY UPPER GASTROINTESTINAL ENDOSCOPY VENTRAL HERNIA REPAIR ? Substance Use/Overdose 06/30/2017 [facility] History of alcohol abuse, multiple ED visits for intoxication and withdrawl. History of marijuana use. Micheal VIS[facility] COUNT (12 MO.) [facility] T[facility] NOTE: Visits indicate total known visits. ED/C VISIT TRACKING (12 MO.) 06/08/2018 01:17 [facility] [place] TYPE: Emergency COMPLAINT: - HEAD PAIN/INJURY 06/06/2018 13:19 [facility] [place] TYPE: Emergency COMPLAINT: - RT SHOULDER PAIN 06/03/2018 22:35 [facility] [place] TYPE: Emergency DIAGNOSES: - Major depressive disorder, single episode, unspecified - Pain in right shoulder - Hypokalemia - Shoulder Pain - Suicidal ideations - Alcohol use, unspecified with intoxication, unspecified 05/31/2018 17:26 [facility] TYPE: Emergency DIAGNOSES: - Pain in right shoulder - detox - Shoulder Pain - Detox Evaluation - Other chronic pain 11/09/2017 18:29 [facility] [place] TYPE: Emergency DIAGNOSES: - Alcohol Problem - Detox - Alcohol abuse, uncomplicated 11/06/2017 11:34 [facility] [place] TYPE: Emergency COMPLAINT: - RIGHT SIDED RIB PAIN/INJURY DIAGNOSES: - PURE HYPERCHOLESTEROLEMIA, UNSPECIFIED - Pleurodynia - Fall from chair, initial encounter - Personal history of nicotine dependence - Other longterm (current) drug therapy - Contusion of right front wall of thorax, initial encounter - Essential (primary) hypertension - Pure hypercholesterolemia, unspecified 11/03/2017 18:21 [facility] TYPE: Emergency COMPLAINT: - ABD PAIN DIAGNOSES: - Other termite inspector (current) drug therapy - Upper abdominal pain, unspecified - Personal history of nicotine dependence - Right upper quadrant pain - Essential (primary) hypertension 11/01/2017 10:29 [facility] [place] TYPE: Emergency COMPLAINT: - FALL DIAGNOSES: - Personal history of nicotine dependence - Pure hypercholesterolemia, unspecified - Other termite inspector (current) drug therapy - Fall on same level from slipping, tripping and stumbling without subsequent striking against object, initial encounter - PURE HYPERCHOLESTEROLEMIA, UNSPECIFIED - Pain in right shoulder - Essential (primary) hypertension 10/26/2017 15:41 [facility] [place] TYPE: Emergency DIAGNOSES: - abd pain - Epigastric pain - Abdominal Pain - Alcohol dependence, uncomplicated - Other stimulant abuse, uncomplicated - Hypokalemia 07/12/2017 15:53 [facility] [place] TYPE: Urgent Care DIAGNOSES: - Localized enlarged lymph nodes - Neck Pain [facility] DIAGNOSES: - Overdose (Intentional) - Suicidal - Nonpsychotic mental disorder, unspecified 07/03/2017 21:38 [facility] [place] TYPE: Emergency DIAGNOSES: - Anxiety - Poisoning by unspecified drugs, medicaments and biological substances, intentional self-harm, initial encounter - Anxiety; Intoxicated - Alcohol use, unspecified with intoxication, uncomplicated 06/30/2017 06:42 [facility] TYPE: Emergency COMPLAINT: - CHEST PAIN DIAGNOSES: - Personal history of nicotine dependence - Essential (primary) hypertension - Precordial pain - Other longterm (current) drug therapy 06/15/2017 10:08 [facility] [place] TYPE: Emergency DIAGNOSES: - Unspecified abdominal pain - abd pain - Abdominal Pain INPATIENT VISIT TRACKING (12 MO.) No inpatient visits to display in this time frame [email or web address]
== END 2018-06-08 02:22 | disposition home or self-care (01) ==
LOC: ED 01:17
DX: K64.4 Residual hemorrhoidal skin tags (principal); W01.198A Fall on same level from slipping, tripping and stumbling with subsequent striking against other object, initial encounter; I10 Essential (primary) hypertension; F17.200 Nicotine dependence, unspecified, uncomplicated; Z79.899 Other long term (current) drug therapy
CPT/HCPCS: 70450; 99284

== ENCOUNTER 2018-06-09 14:55 | Emergency (ER) | payer MEDICARE, OTHER ==
[~2018-06-09] VITALS: Ht 160 cm; Wt 95.2 kg
--- OUTSIDE RECORDS SUMMARY | ~2018-06-09 | XMS | Encounter Summary ---
Demographics + + + | Address | [address] | | | [place] [address] | + + + | Home Phone | | + + + | Preferred Language | Unknown | + + + | Marital Status | | + + + | Samaritan Affiliation | Unknown | + + + | Race | Unknown | + + + | Ethnic Group | Unknown | + + + Author + + + | Author | [facility] | | | and [place] | + + + | Organization | [facility] | | | and [place] | + + + | Address | Unknown | + + + | Phone | Unavailable | + + + Support + + + + + | Name | Relationship | Address | Phone | + + + + + | Arabella Patel | ECON | Unknown | | + + + + + | Mine Marcos | ECON | [place] | | | | | [address] | | + + + + + Care Team Providers + +------+ + | Care Flag Signalman Name | Role | Phone | + +------+ + | Neeru Leggett | PCP | | + +------+ + Encounter Details +--------+ + + + + | Date | Type | Department | Care Team | Description | +--------+ + + + + | 05/06/ | Procedure | [facility] | | | | 2018 | Pass | [facility] MRI [address] | | | | | [place], | | | | | | [place] [address] | | | | | | [phone] | | | +--------+ + + + + Social History + + + +--------+------+ | Tobacco Use | Types | Packs/Day | Years | Date | | | | | Used | | + + + +--------+------+ | Current Every Day | Cigarettes | | | | | Smoker | | | | | + + + +--------+------+ + +---+---+---+ | Smokeless Tobacco: | | | | | Never Used | | | | + +---+---+---+ + + | Comments: "A couple cigarettes per day". | + + + + +---------+ + | Alcohol Use | Drinks/We | oz/Week | Comments | | | ek | | | + + +---------+ + | Yes | 4-6 | 2.4 - | Drinks 24 ounce, 8% alcohol, "211" drinks. | | | Standard | 3.6 | | | | drinks or | | | | | | | | | | equivalen | | | | | t | | | + + +---------+ + + + + | Sex Assigned at | Date Recorded | | | | + + + | Not on file | | + + + as of this encounter Plan of Treatment +--------+---------+ + + + | Date | Type | Specialty | Care Team | Description | +--------+---------+ + + + | 06/17/ | Office | Orthopedic Surgery | Joe Collier, | | | 2017 | Visit | | MD Micaela TURNER | | | | | | [place] | | | | | | [address] | | | | | | [phone] | | | | | | | | +--------+---------+ + + + as of this encounter Visit Diagnoses Not on filein this encounter
--- OUTSIDE RECORDS SUMMARY | ~2018-06-09 | XMS | Encounter Summary ---
Demographics + + + | Address | [address] | | | [place] [address] | + + + | Home Phone | | + + + | Preferred Language | Unknown | + + + | Marital Status | | + + + | Hinduism Affiliation | Unknown | + + + | Race | Unknown | + + + | Ethnic Group | Unknown | + + + Author + + + | Author | [facility] | | | and Javyana | + + + | Organization | [facility] | | | and [...] [place] | | | | | [address] | | + + + + + Care Team Providers + +------+ + | Care Senior Loss Control Specialist Name | Role | Phone | + +------+ + | Neeru Leggett | PCP | | + +------+ + Reason for Referral Diagnostic/Screening (Routine) +--------+--------+ + + + + | Status | Reason | Specialty | Diagnoses / | Referred By | Referred To | | | | | Procedures | Contact | Contact | +--------+--------+ + + + + | Closed | | Radiology | Diagnoses | Anastasiia, | [facility] | | | | | Internal | Heriberto | [address] | | | | | derangement | [place] | [place], | | | | | of right | [address] | [place] | | | | | shoulder | [address] [place] | [address] | | | | | Right | [place], [place] | Phone: | | | | | shoulder | [address] | [phone] | | | | | pain, | Phone: | Fax: | | | | | unspecified | [phone] | [phone] | | | | | chronicity | Fax: | | | | | | Primary | [phone] | | | | | | osteoarthrit | | | | | | | is of right | | | | | | | shoulder | | | | | | | Procedures | | | | | | | MRI Shoulder | | | | | | | Right | | | | | | | Arthrogram w | | | | | | | Contrast | | | +--------+--------+ + + + + Diagnostic/Screening (Routine) +--------+--------+ + + + + | Status | Reason | Specialty | Diagnoses / | Referred By | Referred To | | | | | Procedures | Contact | Contact | +--------+--------+ + + + + | Closed | | Radiology | Diagnoses | Anastasiia, | [facility] | | | | | Internal | Heriberto | [address] | | | | | derangement | [place] | [place], | | | | | of right | [address] | [place] | | | | | shoulder | [place] | [address] | | | | | Right | [place], [place] | Phone: | | | | | shoulder | [address] | [phone] | | | | | pain, | Phone: | Fax: | | | | | unspecified | [phone] | [phone] | | | | | chronicity | Fax: | | | | | | Primary | [phone] | | | | | | osteoarthrit | | | | | | | is of right | | | | | | | shoulder | | | | | | | Procedures | | | | | | | MRI Shoulder | | | | | | | Right | | | | | | | Arthrogram w | | | | | | | Contrast | | | +--------+--------+ + + + + Reason for Visit Diagnostic/Screening (Routine) +--------+--------+ + + + + | Status | Reason | Specialty | Diagnoses / | Referred By | Referred To | | | | | Procedures | Contact | Contact | +--------+--------+ + + + + | Closed | | Radiology | Diagnoses | Anastasiia, | [facility] | | | | | Internal | Heriberto | [address] | | | | | derangement | [place] | [place], | | | | | of right | [address] | [place] | | | | | shoulder | [place] | [address] | | | | | Right | [place], [place] | Phone: | | | | | shoulder | [address] | [phone] | | | | | pain, | Phone: | Fax: | | | | | unspecified | [phone] | [phone] | | | | | chronicity | Fax: | | | | | | Primary | [phone] | | | | | | osteoarthrit | | | | | | | is of right | | | | | | | shoulder | | | | | | | Procedures | | | | | | | MRI Shoulder | | | | | | | Right | | | | | | | Arthrogram w | | | | | | | Contrast | | | +--------+--------+ + + + + Encounter Details +--------+ + + + + | Date | Type | Department | Care Team | Description | +--------+ + + + + | 06/03/ | Hospital | [facility] | Heriberto Laurent | Internal derangement | | 2018 | Encounter | [facility] [address] | [address] | of right shoulder; | | | | [address] [place], | [address] [place] | Right shoulder pain, | | | | [place] [address] | [place] [address] | unspecified | | | | [phone] | [phone] | chronicity; Primary | | | | | | osteoarthritis of | | | | | | right shoulder | +--------+ + + + + Social [...] + + + as of this encounter Medications at Time of Discharge + + +--------+---------+ + + | Medication | Sig. | Disp. | Refills | Start | End Date | | | | | | Date | | + + +--------+---------+ + + | acetaminophen | Take 1,000 mg by | | | | | | (TYLENOL) 500 mg | mouth every 6 hours | | | | | | tablet | as needed for Pain. | | | | | + + +--------+---------+ + + | amLODIPine | Take 5 mg by mouth | | | | | | (NORVASC) 5 mg | Daily. | | | | | | tablet | | | | | | + + +--------+---------+ + + | cholecalciferol | Take 1,000 Units by | | | | | | (VITAMIN D-3) 1,000 | mouth Daily. | | | | | | units tablet | | | | | | + + +--------+---------+ + + | gabapentin | Take 800 mg by mouth | | | | | | (NEURONTIN) 800 MG | 3 times daily. | | | | | | tablet | | | | | | + + +--------+---------+ + + | lisinopril | Take 40 mg by mouth | | | | | | (PRINIVIL,ZESTRIL) | Daily. | | | | | | 40 MG tablet | | | | | | + + +--------+---------+ + + | | Take 1-2 tablets by | 15 | 0 | 06/04/20 | | | oxyCODONE-acetaminop | mouth every 6 hours | tablet | | 18 | | | hen (PERCOCET) 5-325 | as needed for Pain. | | | | | | mg per tablet | | | | | | + + +--------+---------+ + + | potassium chloride | Take 1 tablet by | 28 | 0 | 06/04/20 | | | (KLOR-CON) 10 mEq | mouth 2 times daily | tablet | | 18 | 8 | | CR tablet | for 14 days. | | | | | + + +--------+---------+ + + | simvastatin | Take 10 mg by mouth | | | | | | (ZOCOR) 10 mg tablet | nightly. | | | | | + + +--------+---------+ + + as of this encounter Plan of Treatment +--------+---------+ + + + | Date | Type | Specialty | Care Team | Description | +--------+---------+ + + + | 06/17/ | Office | Orthopedic Surgery | Joe Collier, | | | 2017 | Visit | | MD Micaela PATEL | | | | | | [place] | | | | | | [address] | | | | | | [phone] | | | | | | | | +--------+---------+ + + + as of this encounter Procedures + +--------+ + + + | Procedure Name | Priori | Date/Time | Associated Diagnosis | Comments | | | ty | | | | + +--------+ + + + | MRI SHOULDER RIGHT | Routin | 06/03/2018 | Internal | Results for this | | ARTHROGRAM W | e | 1243 PDT | derangement of right | procedure are in the | | CONTRAST | | | shoulder Right | results section. | | | | | shoulder pain, | | | | | | unspecified | | | | | | chronicity Primary | | | | | | osteoarthritis of | | | | | | right shoulder | | + +--------+ + + + in this encounter Results MRI Shoulder Right Arthrogram w Contrast (06/03/2018 1243) + + + | Narrative | Performed At | + + + | MRI SHOULDER RIGHT ARTHROGRAM W CONTRAST 06/03/2018 12:43 PM | [facility] | | HISTORY: RIGHT SHOULDER PAIN. COMPARISON: Multiple priors. | | | PROTOCOL: After arthrogram, the following sequences were obtained: | | | Axial T1 fat sat, coronal T1 fat sat, sagittal T1 fat sat, coronal | | | proton density fat sat, sagittal proton density fat sat, coronal T2. | | | FINDINGS: Postoperative changes are visualized in the superior | | | shoulder region with blooming artifacts and surgical anchors in the | | | humeral head. There is complete tear and retraction involving the | | | supraspinatus tendon. A large tear is visualized of the infraspinatus | | | at the myotendinous junction. The teres minor is intact. Moderate | | | grade interstitial tearing is observed throughout the subscapularis | | | tendon. The long head of the biceps tendon is normally situated | | | within the bicipital groove with apparent tenodesis. The labrum is | | | intact with no evidence for tear or degeneration. The rotator | | | interval is normal. The glenohumeral ligaments are intact. There are | | | mild degenerative changes of the AC joint with mild reactive fluid. A | | | type 3 acromion is seen. The glenohumeral joint has a normal | | | appearance. There is normal osseous signal. Contrast is | | | visualized within the joint, consistent with arthrography. | | | IMPRESSION - Complete tear and retraction involving supraspinatus | | | tendon. Large tear involving infraspinatus at myotendinous | | | junction. Moderate interstitial tearing throughout subscapularis | | | tendon. Apparent tenodesis of the long head of the biceps tendon. | | | Mild degenerative changes of AC joint. Dictated and Signed by: | | | Fabien Lucio MD Electronically signed: 06/03/2018 1:54 PM | | + + + + + | Procedure Note | + + | Néstor, Rad Results In - 06/03/2018 1358 PDT MRI SHOULDER RIGHT ARTHROGRAM W CONTRAST | | 06/03/2018 12:43 PM HISTORY: RIGHT SHOULDER PAIN.COMPARISON: Multiple priors.PROTOCOL: | | After arthrogram, the following sequences were obtained: Axial T1 fatsat, coronal T1 fat | | sat, sagittal T1 fat sat, coronal proton density fat sat,sagittal proton density fat | | sat, coronal T2.FINDINGS:Postoperative changes are visualized in the superior shoulder | | region withblooming artifacts and surgical anchors in the humeral head.There is complete | | tear and retraction involving the supraspinatus tendon. Alarge tear is visualized of | | the infraspinatus at the myotendinous junction. Theteres minor is intact. Moderate grade | | interstitial tearing is observedthroughout the subscapularis tendon.The long head of | | the biceps tendon is normally situated within the bicipitalgroove with apparent | | tenodesis. The labrum is intact with no evidence for tearor degeneration.The rotator | | interval is normal. The glenohumeral ligaments are intact. There aremild degenerative | | changes of the AC joint with mild reactive fluid. A type 3acromion is seen. The | | glenohumeral joint has a normal appearance. There isnormal osseous signal.Contrast is | | visualized within the joint, consistent with arthrography.IMPRESSION -Complete tear and | | retraction involving supraspinatus tendon.Large tear involving infraspinatus at | | myotendinous junction.Moderate interstitial tearing throughout subscapularis | | tendon.Apparent tenodesis of the long head of the biceps tendon.Mild degenerative | | changes of AC joint.Dictated and Signed by: Fabien Lucio MD Electronically signed: | | 06/03/2018 1:54 PM | |groove with apparent tenodesis. The labrum is intact with no evidence for tear | |or degeneration. | | | |The rotator interval is normal. The glenohumeral ligaments are intact. There are | |mild degenerative changes of the AC joint with mild reactive fluid. A type 3 | |acromion is seen. The glenohumeral joint has a normal appearance. There is | |normal osseous signal. | | | |Contrast is visualized within the joint, consistent with arthrography. | | | |IMPRESSION - | |Complete tear and retraction involving supraspinatus tendon. | | | |Large tear involving infraspinatus at myotendinous junction. | | | |Moderate interstitial tearing throughout subscapularis tendon. | | | |Apparent tenodesis of the long head of the biceps tendon. | | | |Mild degenerative changes of AC joint. | | | |Dictated and Signed by: Fabien Lucio MD | | Electronically signed: 06/03/2018 1:54 PM | + + + +---------+ + + | Performing | Address | City/State/Zipcode | Phone Number | | Organization | | | | + +---------+ + + | [facility] | | | | + +---------+ + + in this encounter Visit Diagnoses + + | Diagnosis | + + | Internal derangement of right shoulder | + + | Right shoulder pain, unspecified chronicity | + + | Primary osteoarthritis of right shoulder | + + | Primary localized osteoarthrosis, shoulder region | + +
--- OUTSIDE RECORDS SUMMARY | ~2018-06-09 | XMS | Clinical Summary ---
Demographics + + + | Address | [address] | | | [place] [address] | + + + | Home Phone | | + + + | Preferred Language | Unknown | + + + | Marital Status | | + + + | Samaritan Affiliation | Unknown | + + + | Race | Unknown | + + + | Ethnic Group | Unknown | + + + Author + + + | Author | [facility] | + + + | Organization | [facility] | + + + | Address | Unknown | + + + | Phone | Unavailable | + + + Support + + +---------+ + | Name | Relationship | Address | Phone | + + +---------+ + | Mine Macros | ECON | Unknown | | + + +---------+ + Care Team Providers + +------+ + | Care Vendor Management Specialist Name | Role | Phone | + +------+ + PP | Unavailable | + +------+ + Allergies Not on File Current Medications Not on file Active Problems Not on file Social History + +-------+ +--------+------+ | Tobacco Use | Types | Packs/Day | Years | Date | | | | | Used | | + +-------+ +--------+------+ | Never Assessed | | | | | + +-------+ +--------+------+ + + + | Sex Assigned at | Date Recorded | | | | + + + | Not on file | | + + + Plan of Treatment Not on file Results Not on filefrom Last 3 Months"
--- OUTSIDE RECORDS SUMMARY | ~2018-06-09 | XMS | Encounter Summary ---
Demographics + + + | Address | [address] | | | [place] [address] | + + + | Home Phone | | + + + | Preferred Language | Unknown | + + + | Marital Status | | + + + | Hoahaoism Affiliation | Unknown | + + + | Race | Unknown | + + + | Ethnic Group | Unknown | + + + Author + + + | Author | [facility] | | | and Javyana | + + + | Organization | [facility] | | [...] [place] | | | | | [address] | | + + + + + Care Team Providers + +------+ + | Care Manager Perioperative Name | Role | Phone | + +------+ + | Neeru Leggett | PCP | | + +------+ + Reason for Visit + + + | Reason | Comments | + + + | Detox Evaluation | | + + + | Shoulder Pain | | + + + Encounter Details +--------+ + + + + | Date | Type | Department | Care Team | Description | +--------+ + + + + | 05/31/ | Emergency | [facility] | Joe Kong | Chronic right | | 2018 | | [facility] | MD Nain [address] | shoulder pain | | | | [facility] [address] | [address] | (Primary Dx) | | | | [place], [place] | [place] [address] | | | | | [address] | [phone] | | | | | [phone] | | | +--------+ + + + [...] + + + as of this encounter Last Filed Vital Signs + + + + | Vital Sign | Reading | Time Taken | + + + + | Blood Pressure | 136/68 | 05/31/2018 2225 PDT | + + + + | Pulse | 88 | 05/31/20182224 PDT | + + + + | Temperature | 37.3 C (99.1 F) | 05/31/20181739 PDT | + + + + | Respiratory Rate | 18 | 05/31/20182224 PDT | + + + + | Oxygen Saturation | 98% | 05/31/20182224 PDT | + + + + | [...] 05/31/20181735 PDT | + + + + in this encounter Discharge Instructions The following attachments cannot be sent through Care Everywhere.Renato (Filipino)in this encounter Medications at Time of Discharge + + +-------+---------+--------+ + | Medication | Sig. | Disp. | Refills | Start | End Date | | | | | | Date | | + + +-------+---------+--------+ + | acetaminophen | Take 1,000 mg by | | | | | | (TYLENOL) 500 mg | mouth every 6 hours | | | | | | tablet | as needed for Pain. | | | | | + + +-------+---------+--------+ + | amLODIPine | Take 5 mg by mouth | | | | | | (NORVASC) 5 mg | Daily. | | | | | | tablet | | | | | | + + +-------+---------+--------+ + | cholecalciferol | Take 1,000 Units by | | | | | | (VITAMIN D-3) 1,000 | mouth Daily. | | | | | | units tablet | | | | | | + + +-------+---------+--------+ + | gabapentin | Take 800 mg by mouth | | | | | | (NEURONTIN) 800 MG | 3 times daily. | | | | | | tablet | | | | | | + + +-------+---------+--------+ + | lisinopril | Take 40 mg by mouth | | | | | | (PRINIVIL,ZESTRIL) | Daily. | | | | | | 40 MG tablet | | | | | | + + +-------+---------+--------+ + | simvastatin | Take 10 mg by mouth | | | | | | (ZOCOR) 10 mg tablet | nightly. | | | | | + + +-------+---------+--------+ + as of this encounter Plan of Treatment +--------+---------+ + + + | Date | Type | Specialty | Care Team | Description | +--------+---------+ + + + | 06/17/ | Office | Orthopedic Surgery | Joe Collier, | | | 2018 | Visit | | MD Micaela TURNER | | | | | | [place] | | | | | | [address] | | | | | | [phone] | | | | | | | | +--------+---------+ + + + + +--------+ + + | Name | Priori | Associated Diagnoses | Date/Time | | | ty | | | + +--------+ + + | ED INFORMATION EXCHANGE | Routin | | 05/31/2018 1730 PDT | | | e | | | + +--------+ + + as of this encounter Procedures [...] | | | [place] | | | [id number] | | | [id number] | | | This | | | [...] | | | 178-01 | | | [id number] | | | d0cb | | | [...] | | | St. | | | [place] | | | y | | | [...] | | | r | | | Grawn | | | , E[employer] MARKET[employer] SPECIALIST, | | | E[employer] MARKETING SPECIALIST | | | Primar | | | [...] | | | St. | | | [place] | | | y | | | [...] | [email or web address] | | | | +---+--------+ in this encounter Results Drugs of Abuse, Screen, Urine (05/31/20181936) + + + + + | Component | Value | Ref Range | Performed At | + + + + + | Amphetamine Screen, | Negative | Negative | [facility] | | Urine | | | [facility] | | | | | CENTER [...] + + + | Cannabinoids Screen, | Negative | Negative | [facility] | | Urine | | | [facility] | | | | | [...] | + + + + + | [facility] | [address] | [place] | [phone] | | [facility] | | [address] | | | - LABORATORY | | | | + + + + + | [facility] | [address] | [place] | | | [facility] | | [address] | | | - LABORATORY | | | | + + + + + Urinalysis with Microscopic with Culture if Indicated (05/31/20181936) + + + + + | Component | Value | Ref Range | Performed At | + + + + + | COLOR | Yellow | Light Yellow, | [facility] | | | | Yellow, Straw | [facility] | | | | | CENTER - | | | | | LABORATORY | + + + + + | CLARITY | Clear | Clear | [facility] | | | | | [facility] | | | | | CENTER - | | | | | LABORATORY | + + + + + | PH UA | 8.0 | 5.0 - 8.0 | [facility] | | | | | [facility] | | | | | CENTER - | | | | | LABORATORY | + + + + + | Specific [place] | 1.008 | 1.001 - 1.030 | [facility] [...] COMMENT | Urine Culture Not | | [facility] | | | Indicated | | [facility] | | | [...] + | [facility] | [address] | [place], [place] | [phone] | | [facility] | | [address] | | | - LABORATORY | | | | + + + + + | [facility] | [address] | [place], [place] | | | [facility] | | [address] | | | - LABORATORY | | | | + + + + + Extra Lavender Top Tube (05/31/2018 1909) + +-------+ + + | Component | Value | Ref Range | Performed At | + +-------+ + + | Extra Lavender Top | Done | | [facility] | | Tube | | | [facility] | | | | | [...] + | [facility] | [address] | [place] | [phone] | | [facility] | | [address] | | | - LABORATORY | | | | + + + + + | [facility] | [address] | [place] | | | [facility] | | [address] | | | - LABORATORY | | | | + + + + + Extra Gold Top Tube (05/31/20181908) + +-------+ + + | Component | Value | Ref Range | Performed At | + +-------+ + + | EGDT | Done | | [facility] | | | | | [facility] | | | | | CENTER - | | | | | LABORATORY | + +-------+ + + + + | Specimen | + + | Blood | + + + + + + + | Performing | Address | City/State/Zipcode | Phone Number | | Organization | | | | + + + + + | [facility] | [address] | [place] | [phone] | | [facility] | | [address] | | | - LABORATORY | | | | + + + + + | [facility] | [address] | [place] | | | [facility] | | [address] | | | - LABORATORY | | | | + + + + + Extra Blue Top Tube (05/31/20181908) + +-------+ + + | Component | Value | Ref Range | Performed At | + +-------+ + + | Extra Blue Top Tube | Done | | [facility] | | | | | [facility] | | | | | CENTER - | | | | | LABORATORY | + +-------+ + + + + | Specimen | + + | Blood | + + + + + + + | Performing | Address | City/State/Zipcode | Phone Number | | Organization | | | | + + + + + | [facility] | [address] | [place], [place] | [phone] | | [facility] | | [address] | | | - LABORATORY | | | | + + + + + | [facility] | [address] | [place], [place] | | | [facility] | | [address] | | | - LABORATORY | | | | + + + + + Salicylate Level (05/31/20181905) + +-------+ + + | Component | Value | Ref Range | Performed At | + +-------+ + + | Salicylate Level | <4.0 | <30.0 mg/dL | [facility] | | | | | [facility] [...] + | [facility] | [address] | [place] | [phone] | | [facility] | | [address] | | | - LABORATORY | | | | + + + + + | [facility] | [address] | [place] | | | [facility] | | [address] | | | - LABORATORY | | | | + + + + + Acetaminophen Level (05/31/20181905) + +-------+ + + | Component | Value | Ref Range | Performed At | + +-------+ + + | Acetaminophen Level | <10 | <10 ug/mL | [facility] | | | | | [facility] | | | | | CENTER - | | | | | LABORATORY | + +-------+ + + + + | Specimen | + + | Blood | + + + + + + + | Performing | Address | City/State/Zipcode | Phone Number | | Organization | | | | + + + + + | [facility] | [address] | [place], [place] | [phone] | | [facility] | | [address] | | | - LABORATORY | | | | + + + + + | [facility] | [address] | [place], [place] | | | [facility] | | [address] | | | - LABORATORY | | | | + + + + + TSH (05/31/2018 1906) + + + + + | Component | Value | Ref Range | Performed At | + + + + + | TSH | 0.91Comment: This is a | 0.45 - 5.33 uIU/mL | [facility] | | | third generation TSH | | [facility] | | | test. | | CENTER [...] + | [facility] | [address] | [place] | [phone] | | [facility] | | [address] | | | - LABORATORY | | | | + + + + + | [facility] | [address] | [place], [place] | | | [facility] | | [address] | | | - LABORATORY | | | | + + + + + Ethanol (05/31/20181905) + +-------+ + + | Component | Value | Ref Range | Performed At | + +-------+ + + | ALCOHOL, | 163 | <400 mg/dL | [facility] | | SERUM/PLASMA | | | [facility] | | | | | CENTER - | | | | | LABORATORY | + +-------+ + + + + | Specimen | + + | Blood | + + + + + + + | Performing | Address | City/State/Zipcode | Phone Number | | Organization | | | | + + + + + | [facility] | [address] | [place] | [phone] | | [facility] | | [address] | | | - LABORATORY | | | | + + + + + | [facility] | [address] | [place] | | | [facility] | | [address] | | | - LABORATORY | | | | + + + + + Comprehensive Metabolic Panel (05/31/2018 1906) + + + + + | Component | Value | Ref Range | Performed At | + + + + + | NA | 140 | 136 - 149 mmol/L | [facility] | | | | | [facility] | | | | | CENTER - | | | | | LABORATORY | + + + + + | K | 3.1 (L) | 3.5 - 5.1 mmol/L | [facility] | | | | | [facility] | | | | | CENTER - | | | | | LABORATORY | + + + + + | CL | 103 | 98 - 109 mmol/L | [facility] | | | | | [facility] | | | | | CENTER - | | | | | LABORATORY | + + + + + | CO2 | 24 | 24 - 31 mmol/L | [facility] | | | | | [facility] | | | | | CENTER - | | | | | LABORATORY | + + + + + | ANION GAP | 13 | 3 - 16 mmol/L | [facility] | | | | | [facility] | | | | | CENTER - | | | | | LABORATORY | + + + + + | GLUCOSE | 143 (H) | 70 - 109 mg/dL | [facility] | | | | | [facility] | | | | | CENTER - | | | | | LABORATORY | + + + + + | BUN | 5 (L) | 7 - 18 mg/dL | [facility]. | | | | | [facility] | | | | | CENTER - | | | | | LABORATORY | + + + + + | Creatinine, | 0.59 (L) | 0.60 - 1.30 mg/dL | [facility]. | | Serum/Plasma | | | [facility] | | | | | CENTER - | | | | | LABORATORY | + + + + + | eGFR if not | >60Comment: GLOMERULAR | >=60 mL/min/1.73m2 | [facility]. | | [place] | FILTRATION | | [facility] | | | RATE,ESTIMATED mL/min | | CENTER - | | | /1.16e3Scwj than 60 | | LABORATORY | | [...] + + + + | CALCIUM | 9.0 | 8.3 - 10.5 mg/dL | [facility] | | | | | [facility] | | | | | CENTER - | | | | | LABORATORY | + + + + + | ALBUMIN | 4.1 | 3.2 - 5.0 g/dL | [facility] | | | | | [facility] | | | | | CENTER - | | | | | LABORATORY | + + + + + | Bilirubin Total | 0.5 | 0.1 - 1.5 mg/dL | [facility] | | | | | [facility] | | | | | CENTER - | | | | | LABORATORY | + + + + + | Total protein | 7.1 | 6.0 - 7.8 g/dL | [facility] | | | | | [facility] | | | | | CENTER - | | | | | LABORATORY | + + + + + | AST | 35 | 10 - 42 U/L | [facility] | | | | | [facility] | | | | | CENTER - | | | | | LABORATORY | + + + + + | ALT | 50 (H) | 6 - 45 U/L | [facility] | | | | | [facility] | | | | | CENTER - | | | | | LABORATORY | + + + + + | ALK PHOS | 66 | 40 - 110 U/L | [facility] | | | | [...] + + + + | Albumin/Globulin | 1.4 | 0.8 - 2.0 | [facility] | | ratio | | | [facility] | | | | | CENTER - | | | | | LABORATORY | + + + + + | BUN/CREA | 8.5 | | [facility] | | | [...] + | [facility] | [address] | [place] | [phone] | | [facility] | | [address] | | | - LABORATORY | | | | + + + + + | [facility] | [address] | [place], [place] | | | [facility] | | [address] | | | - LABORATORY | | | | + + + + + CBC with Differential (05/31/20181905) + +-------+ + + | Component | Value | Ref Range | Performed At | + +-------+ + + | WBC | 9.4 | 4.0 - 11.0 K/uL | [facility] | | | | | [facility] | | | | | CENTER - | | | | | LABORATORY | + +-------+ + + | RBC | 5.05 | 4.30 - 5.70 M/uL | [facility] | | | | | [facility] | | | | | CENTER - | | | | | LABORATORY | + +-------+ + + | Hgb | 15.4 | 13.5 - 18.0 g/dL | [facility] | | | | | [facility] | | | | | CENTER - | | | | | LABORATORY | + +-------+ + + | Hct | 43.9 | 40.0 - 51.0 % | [facility] | | | | | [facility] | | | | | CENTER - | | | | | LABORATORY | + +-------+ + + | MCV | 87.0 | 83.0 - 101.0 fL | [facility] | | | | | [facility] | | | | | CENTER - | | | | | LABORATORY | + +-------+ + + | MCH | 30.6 | 28.0 - 35.0 pg | [facility] | | | | | [facility] | | | | | CENTER - | | | | | LABORATORY | + +-------+ + + | MCHC | 35.2 | 32.0 - 36.0 g/dL | [facility] | | | | | [facility] | | | | | CENTER - | | | | | LABORATORY | + +-------+ + + | RDW-CV | 13.4 | <15.0 % | [facility] | | | | | [facility] | | | | | CENTER - | | | | | LABORATORY | + +-------+ + + | Platelet Count | 284 | 140 - 440 K/uL | [facility] | | | | | [facility] | | | | | CENTER - | | | | | LABORATORY | + +-------+ + + | MPV | 7.8 | fL | [facility] | | | | | [facility] | | | | | CENTER - | | | | | LABORATORY | + +-------+ + + | % Neutrophils | 71.0 | 45.0 - 82.0 % | [facility] | | | | | [facility] | | | | | CENTER - | | | | | LABORATORY | + +-------+ + + | % Lymphocytes | 22.0 | 20.0 - 45.0 % | [facility] | | | | | [facility] | | | | | CENTER - | | | | | LABORATORY | + +-------+ + + | % Monocytes | 6.1 | 4.0 - 12.0 % | [facility] [...] +-------+ + + | % Basophils | 0.7 | 0.0 - 1.0 % | [facility] | | | | | [facility] | | | | | CENTER - | | | | | LABORATORY | + +-------+ + + | Absolute Neutrophils | 6.70 | 1.80 - 8.50 K/uL | [facility] | | | | | [facility] | | | | | CENTER - | | | | | LABORATORY | + +-------+ + + | Absolute Lymphocytes | 2.10 | 0.60 - 3.20 K/uL | [facility] | | | | | [facility] | | | | | CENTER - | | | | | LABORATORY | + +-------+ + + | Absolute Monocytes | 0.60 | 0.00 - 1.00 K/uL | [facility] [...] 0.10 | 0.00 - 0.10 K/uL | [facility] | | | | | [facility] | | | | | CENTER - | | | | | LABORATORY | + +-------+ + + + + | Specimen | + + | Blood | + + + + + + + | Performing | Address | City/State/Zipcode | Phone Number | | Organization | | | | + + + + + | [facility] | [address] | [place] | [phone] | | [facility] | | [address] | | | - LABORATORY | | | | + + + + + | [facility] | [address] | [place], [place] | | | [facility] | | [address] | | | - LABORATORY | | | | + + + + + in this encounter Visit Diagnoses + + | Diagnosis | + + | Chronic right shoulder pain - Primary | + + | Pain in joint, shoulder region | + + Administered Medications + +--------+ +--------+------+------+ | Medication Order | MAR | Action | Dose | Rate | Site | | | Action | Date | | | | + +--------+ +--------+------+------+ | HYDROmorphone (DILAUDID) | Given | | 0.5 mg | | | | injection 0.5 mg 0.5 mg, | | 8 19:34 | | | | | Intravenous, ONCE, 05/31/18 at | | PDT | | | | | 1825, For 1 dose | | | | | | + +--------+ +--------+------+------+ +---+---+ | | | +---+---+ + +-------+ +--------+---+ + | HYDROmorphone (DILAUDID) | Given | | 0.5 mg | | Deltoid- | | injection 0.5 mg 0.5 mg, | | 8 22:14 | | | Right | | Intramuscular, ONCE, Wed05/31/18 | | PDT | | | | | at 2140, For 1 dose | | | | | | + +-------+ +--------+---+ + +---+---+ | | | +---+---+ + +-------+ +------+---+---+ | ondansetron (ZOALETHA LEET) | Given | | 4 mg | | | | disintegrating tablet 4 mg 4 mg, | | 8 19:35 | | | | | Oral, ONCE, 05/31/18 at 1825, | | PDT | | | | | For 1 dose | | | | | | + +-------+ +------+---+---+ +---+---+ | | | +---+---+ in this encounter
--- OUTSIDE RECORDS SUMMARY | ~2018-06-09 | XMS | Encounter Summary ---
Demographics + + + | Address | [address] | | | [place] [address] | + + + | Home Phone | | + + + | Preferred Language | Unknown | + + + | Marital Status | | + + + | Pentecostalism Affiliation | Unknown | + + + | Race | Unknown | + + + | Ethnic Group | Unknown | + + + Author + + + | Author | [facility] | | | and Javyana | + + + | Organization | [facility] | | | [...] [place] | | | | | [address] | | + + + + + Care Team Providers + +------+ + | Care Joss House Keeper Name | Role | Phone | + [...] + + | 06/03/ | Emergency | [facility] | Manuel Leggett, | Acute pain of right | | 2018 - | | MED CTR EMER[facility]Y | MD [address] | shoulder (Primary | | | | CENTER [address] | [facility] | Dx); Depression, | | 06/04/ | | [place] | [place] [address] | unspecified | | 2017 | | [address] | [phone] | depression type; | | | | [phone] | | Suicidal ideation; | | | [...] with primary care Follow up at the [place] Follow-up with orthopedics Any additional prescription for pain medicine needs to come from one of your regular physic ians, not the ER The following attachments cannot be sent through Care Everywhere.Depression ([place] Islander)Alcoho l Intoxication ([place] Islander)Hypokalemia ([place] Islander)Shoulder Problems ([place]er)in this encounter Medications at Time of Discharge [...] [place] | | | | | | [address] | | | | | | [phone] | | | | | | | [...] | | | [place] | | | [id number] | | | [id number] | | | This | | | [...] | | | 178-01 | | | [phone] | | | d0cb | | | [...] | | | St. | | | [place] | | | y | | | [...] | | | r | | | Lane | | | , SAND CUTTER, | | | SAND CUTTER | | | Primar | | | [...] | | | fectio | | | n/Business Process Manager | | | nic10/ | | | [...] | | | St. | | | [place] | | | y | | | [...] | | | [phone] | | | [phone] | | | .These | | | [...] +---+--------+ in this encounter Results TSH (06/03/2018 6674) + + + + + | Component [...] [address] | [place] | [phone] | | [facility] | | [address] | | | - LABORATORY | | | | + + + + + | [facility] | [address] | [place] | | | [facility] | | [address] | | | - LABORATORY | | [...] + + + + + | Specific [place] | 1.013 | 1.001 - 1.030 | [...] + + | Performing | Address | City/[facility]/Zipcode | Phone Number | | Organization | | | | + + + + + | [facility] | [address] | [place], [place] | [phone] | | [facility] | | [address] | | | - LABORATORY | | | | + + + + + | [facility] | [address] | [place] | | | [facility] | | [address] | | | - LABORATORY | | | | + + + + + Drugs of Abuse, Screen, Urine (06/03/2018 2144) + + + + + | Component [...] | [facility] | [address] | [place], [place] | [phone] | | [facility] | | [address] | | | - LABORATORY | | | | + + + + + | [facility] | [address] | [place], [place] | | | [facility] | | [address] | | | - LABORATORY | | [...] | [facility] | [address] | [place] | [phone] | | [facility] | | [address] | | | - LABORATORY | | | | + + + + + | [facility] | [address] | [place] | | | [facility] | | [address] | | | - LABORATORY | | [...] | [facility] | [address] | [place], [place] | [phone] | | [facility] | | [address] | | | - LABORATORY | | | | + + + + + | [facility] | [address] | [place], [place] | | | [facility] | | [address] | | | - LABORATORY | | [...] | [facility] | [address] | [place] | [phone] | | [facility] | | [address] | | | - LABORATORY | | | | + + + + + | [facility] | [address] | [place] | | | [facility] | | [address] | | | - LABORATORY | | [...] >=60 mL/min/1.73m2 | [facility] | | [place] | FILTRATION | | [facility] | | | RATE,ESTIMATED mL/min | | CENTER - | | | /1.26o0Mefs than 60 | | LABORATORY | | [...] [facility] | | | | | [facility] [...] | | appended report. These | | [facility] | | | results have been | | CENTER - | | | appended to a previously | | LABORATORY | | | preliminary verified | | | | | report. | | | + + + + + | Total protein | 6.9 | 6.0 - 7.8 g/dL | [facility] | | | | | [facility] | | | | | [...] | | appended report. These | | [facility] | | | results have been | | CENTER - | | | appended to a previously | | LABORATORY | | | preliminary verified | | | | | report. | | | + + + + + | GLOBULIN | 3.0 | 2.1 - 3.8 g/dL | [facility] | | | | | [facility] | | | | | CENTER - | | | | | LABORATORY | + + + + + | Albumin/Globulin | 1.3 | 0.8 - 2.0 | [facility] | | ratio | | | [facility] | | | | | [facility] - | | | | | LABORATORY | + + + + + | BUN/CREA | 12.9 | | [facility] | [facility] | | [facility] [address] | [place] | [phone] | | [facility] | | [id number] | | | - LABORATORY | | | | + + + + + | [facility] | [address] | [place] | | | [facility] | | [address] | | | - LABORATORY | | | | + + + + + CBC with Differential (06/03/[id number]) + +-------+ + + | Component | Value | Ref Range | Performed At | + +-------+ + + | WBC | 9.9 | 4.0 - 11.0 K/uL | [facility]. | | | | | [facility] | | | | | CENTER - | | | | | LABORATORY | + +-------+ + + | RBC | 4.90 | 4.30 - 5.70 M/uL | [facility]. | | | | | [facility] | | | | | [facility] | | | | | [...] | [facility] | [address] | [place], [place] | [phone] | | [facility] | | [address] | | | - LABORATORY | | | | + + + + + | [facility] | [address] | [place], [place] | | | [facility] | | [id number] | | | - LABORATORY | | [...]
--- OUTSIDE RECORDS SUMMARY | ~2018-06-09 | XMS | Encounter Summary ---
Demographics + + + | Address | [address] | | | [place] [address] | + + + | Home Phone | | + + + | Preferred Language | Unknown | + + + | Marital Status | | + + + | Hindu Affiliation | Unknown | + + + | Race | Unknown | + + + | Ethnic Group | Unknown | + + + Author + + + | Author | [facility] | | | and Javyana | + + + | Organization | [facility] | | | [...] [place] | | | | | [address] | | + + + + + Care Team Providers + +------+ + | Care Motor Vehicles Supervisor Name | Role | Phone | [...] + + | 05/05/ | Office | [facility] | Heriberto Laurent | Internal derangement | | 2018 | Visit | ORTHOPEDIC SURGERY | [address] | of right shoulder | | | | [address] | [address] [facility] | (Primary Dx); Right | | | | [place], [place] | [facility] [place] [address] | shoulder pain, | | | | [address] | [phone] | unspecified | | | | [phone] | | chronicity | +--------+---------+ + + [...] 12:14 This note was dictated using the [employer] voice recognition system. Minor errors in grammar [...] [place] | | | | | | [address] | | | | | | [phone] | | | | | | | | +--------+---------+ + + + as of this encounter Visit Diagnoses + + | Diagnosis | + + | Internal derangement of right shoulder - Primary | + + | Right shoulder pain, unspecified chronicity | + +"
--- OUTSIDE RECORDS SUMMARY | ~2018-06-09 | XMS | Encounter Summary ---
Demographics + + + | Address | [address] | | | [place] [address] | + + + | Home Phone | | + + + | Preferred Language | Unknown | + + + | Marital Status | | + + + | Adventist Affiliation | Unknown | + + + | Race | Unknown | + + + | Ethnic Group | Unknown | + + + Author + + + | Author | [facility] | | | and Javyana | + + + | Organization | [facility] | | | [...] [place] | | | | | [address] | | + + + + + Care Team Providers + +------+ + | Care Violent Crimes Detective Name | Role | Phone | + +------+ + | Neeru Leggett | PCP | | + +------+ + Encounter Details +--------+ + + + + | Date | Type | Department | Care Team | Description | +--------+ + + + + | 06/03/ | Hospital | [facility] | Heriberto Laurent | Internal derangement | | 2018 | Encounter | MED CTR XRAY [address] | [address] | of right shoulder; | | | | [place] | [address] [place] | Right shoulder pain, | | | | [place] [address] | [place] [address] | unspecified | | | | [phone] | [phone] | chronicity; Primary | | | | [...] [place] | | | | | | [address] | | | | | | [phone] | | | | | | | [...] + + | Performing | Address | City/State[facility] | Phone Number | | Organization [...]
--- OUTSIDE RECORDS SUMMARY | ~2018-06-09 | XMS | Encounter Summary ---
Demographics + + + | Address | [address] | | | [place] [address] | + + + | Home Phone | | + + + | Preferred Language | Unknown | + + + | Marital Status | | + + + | Amish Affiliation | Unknown | + + + | Race | Unknown | + + + | Ethnic Group | Unknown | + + + Author + + + | Author | [facility] | | | and Javyana | + + + | Organization | [facility] | | | [...] [place] | | | | | [address] | | + + + + + Care Team Providers + +------+ + | Care Finishing Machine Operator Automatic Name | Role | Phone | + [...] | Internal | Heriberto | [address] | | | | | derangement | [place] | [place], | | | | | of right | [address] | [place] | | | | | shoulder | St [place] | [address] | | | | | Right | [place], [place] | Phone: | | | | | shoulder | [address] | [phone] | | | | | pain, | Phone: | Fax: | | | | | unspecified | [phone] | [phone] | | | | | chronicity | Fax: | | | | | | Primary | [phone] | | | | | | osteoarthrit [...] Dx); Right | | | | [place], [place] | [place] [address] | shoulder pain, | | | | [address] | [phone] | unspecified | | | | [phone] | | chronicity; Primary | | | [...] [place] | | | | | | [address] | | | | | | [phone] | | | | | | | [...]
--- OUTSIDE RECORDS SUMMARY | ~2018-06-09 | XMS | Clinical Summary ---
Demographics + + + | Address | [address] | | | [place] [address] | + + + | Home Phone | | + + + | Preferred Language | Unknown | + + + | Marital Status | | + + + | Gnosticist Affiliation | Unknown | + + + | Race | Unknown | + + + | Ethnic Group | Unknown | + + + Author + + + | Author | [facility] | | [...] [place] | | | | | [address] | | + + + + + Care Team Providers + +------+ + | Care Agricultural Equipment Mechanic Name | Role | Phone | + [...] baclofen twice | | ER visit and HEAD RESIDENT eval 07/03/17 and 07/05/17 | + + [...] outside recordsFinds good | | support w/ oriental orthodox groups | + + + + + [...] to get detox | | at [facility] Assessment & Plan: Self medicates with ETOH when out of | | narcoticsVery dangerous behavior - advised on risksPatient | | declined referral to treatment or to meet with [facility] | |Per ER note again 06/15/2017 - still drinking; unable to get detox at [place] | | | |Last Assessment & Plan: | |Self medicates with ETOH when out of narcotics | |Very dangerous behavior - advised on risks | |Patient declined referral to treatment or to meet with [facility] | + + + + + | Chronic pain of both shoulders | 04/12/2017 | + + + + + | Overview: Overview: Hx multiple RC surgeryOverview: L | | shoulder arthroscopy with subacromial decompression x 2 (2010 | | with Dr. Espinoza and re-injury with re-repair 2017 at | | [facility])Previously completed PTInjections - minimal reliefSee | | chronic painLast Assessment & Plan: Chronic shoulder pain with | | history of multiple shoulder surgeries and previous PT and | | injections. Referral placed to [facility] per patient | | preference | | | |Last Assessment & Plan: | |Chronic shoulder pain with history of multiple shoulder surgeries and previous PT and injec tions. Referral placed to [facility] per patient preference | + + [...] + -+ | Overview: Overview: Followed by [facility]; chronic | | narcoticsHas and understands how to use NarcanOverview: Followed | | by [facility]; chronic narcoticsHas and understands | | how [...] to discuss transportation resources to | | [facility] refused to discuss non-narcotic alternatives | | [...] | | surgeryDr. Lui referred him to [facility] for second opinion - | | pending first visit | |Multiple hernia repair. Followed by GI and surgery | |Dr. Lui referred him to [facility] for second opinion - pending first [...] [place] | | | | | | [address] | | | | | | [phone] | | | | | | | [...] | | | PEDRO | | | [id number] | | | [id number] | | | This | | | patien | | | t has | | | regist | | | ered | | | at the | | | | | | Provid | | | ence | | | St. | | | Ireen | | | Medica | | | [...] | | | 178-01 | | | [id number] | | | [id number] | | | [...] | | | St. | | | [place] | | | y | | | [...] | | | r | | | [place] | | | , LINING SCRUBBER, | | | LINING SCRUBBER | | | Primar | | | [...] | | | fectio | | | n/Sales Ledger Administrator | | | nic10/ | | | [...] | | | St. | | | [place] | | | y | | | [...] | | | PEDRO | | | [id number] | | | [id number] | | | This | | | [...] | | | 178-01 | | | [id number] | | | [id number] | | | [...] | | | St. | | | [place] | | | y | | | [...] | | | r | | | [place] | | | , LINING SCRUBBER, | | | LINING SCRUBBER | | | Primar | | | [...] | | | St. | | | [place] | | | y | | | [...] with Microscopic with Culture if Indicated (06/03/2018 7079)Only the most recent of 2 results within [...] + + + + | Specific [place] | 1.013 | 1.001 - 1.030 | [...] ST. | | | Indicated | | [facility] | | | | | CENTER [...] [address] | [place] | [phone] | | [facility] | | [address] | | | - LABORATORY | | | | + + + + + | [facility] | [address] | [place] | | | [facility] | | [address] | | | - LABORATORY | | | | + + + + + Drugs of Abuse, Screen, Urine (06/03/2018 9663)Only the most recent of 2 results within the time period is included. + + + + + | Component | Value | Ref Range | Performed At | + + + + + | Amphetamine Screen, | Negative | Negative | [facility] | | Urine | | | [facility] | | | | | CENTER - | | | | | LABORATORY | + + + + + | Barbiturates Screen, | Negative | Negative | [facility] | | Urine | | | [facility] | | | [...] + | [facility] | [address] | [place] | [phone] | | [facility] | | [address] | | | - LABORATORY | | | | + + + + + | [facility] | [address] | [place] | | | [facility] | | [address] | | | - LABORATORY | | | | + + + + + CBC with Differential (06/03/2018 8809)Only the most recent of 2 results within the time chuy dietz is included. + +-------+ + + | Component | Value | Ref Range | Performed At | + +-------+ + + | WBC | 9.9 | 4.0 - 11.0 K/uL | [facility] | | | | | [facility] | | | | | CENTER - | | | | | LABORATORY | + +-------+ + + | RBC | 4.90 | 4.30 - 5.70 M/uL | [facility] | | | | | [facility] | | | | | CENTER [...] ST. | | | | | [facility] | | | [...] + | [facility] | [address] | [place], [place] | [phone] | | [facility] | | [address] | | | - LABORATORY | | | | + + + + + | [facility] | [address] | [place], [place] | | | [facility] | | [address] | | | - LABORATORY | | [...] | | third generation TSH | | [facility] | | | test. | | [...] + | [facility] | [address] | [place] | [phone] | | [facility] | | [address] | | | - LABORATORY | | | | + + + + + | [facility] | [address] | [place] | | | [facility] | | [address] | | | - LABORATORY | | | | + + + + + Ethanol (06/03/2018 8153)Only the most recent of 2 results within the time period is includ ed. + +-------+ + + | Component | Value | Ref Range | Performed At | + +-------+ + + | ALCOHOL, | 127 | <400 mg/dL | [facility] | | SERUM/PLASMA | | | [facility] | | | | | [place] - | | | | | LABORATORY | + +-------+ + + + + | Specimen | + + | Blood | + + + + + + + | Performing | Address | City/State/Zipcode | Phone Number | | Organization | | | | + + + + + | [facility] | [address] | [place] | [phone] | | [facility] | | [address] | | | - LABORATORY | | | | + + + + + | [facility] | [address] | [place] | | | [facility] | | [address] | | | - LABORATORY | | | | + + + + + Acetaminophen Level (06/03/2018 7357)Only the most recent of 2 results within [...] + | [facility] | [address] | [place] | [phone] | | [facility] | | [address] | | | - LABORATORY | | | | + + + + + | [facility] | [address] | [place] | | | [facility] | | [address] | | | - LABORATORY | | | | + + + + + Salicylate Level (06/03/2018 6450)Only the most recent of 2 results within the time period is included. + +-------+ + + | Component | Value | Ref Range | Performed At | + +-------+ + + | Salicylate Level | <4.0 | <30.0 mg/dL | [facility] | | | | | [facility] | | | | | CENTER - | | | | | LABORATORY | + +-------+ + + + + | Specimen | + + | Blood | + + + + + + + | Performing | Address | City/State/Zipcode | Phone Number | | Organization | | | | + + + + + | [facility] | [address] | [place], [place] | [phone] | | [facility] | | [address] | | | - LABORATORY | | | | + + + + + | [facility] | [address] | [place] | | | [facility] | | [address] | | | - LABORATORY | | | | + + + + + Comprehensive Metabolic Panel (06/03/2018 2858)Only the most recent of 2 results within [...] 9 | 7 - 18 mg/dL | [facility] | | | | | [facility] | | | | | CENTER - | | | | | LABORATORY | + + + + + | Creatinine, | 0.70 | 0.60 - 1.30 mg/dL | [facility] | | Serum/Plasma | | | [facility] | | | | | CENTER - | | | | | LABORATORY | + + + + + | eGFR if not | >60Comment: GLOMERULAR | >=60 mL/min/1.73m2 | [facility] | | CHADIAN | FILTRATION | | [facility] | | | RATE,ESTIMATED mL/min | | CENTER - | | | /1.75o4Nqfs than 60 | | LABORATORY | | [...] | | appended report. These | | [facility] | | | [...] + | [facility] | [address] | [place] | [phone] | | [facility] | | [address] | | | - LABORATORY | | | | + + + + + | [facility] | [address] | [place] | | | [facility] | | [address] | | | - LABORATORY | | [...] + | [facility] | [address] | [place], [place] | [phone] | | [facility] | | [address] | | | - LABORATORY | | | | + + + + + | [facility] | [address] | [place], [place] | | | [facility] | | [address] | | | - LABORATORY | | | | + + + + + Extra Gold Top Tube (05/31/20181908) + +-------+ + + | Component | Value | Ref Range | Performed At | + +-------+ + + | EGDT | Done | | [facility] | | | | | [facility] | | | | | CENTER - | | | | | LABORATORY | + +-------+ + + + + | Specimen | + + | Blood | + + + + + + + | Performing | Address | City/State/Zipcode | Phone Number | | Organization | | | | + + + + + | [facility] | [address] | [place], [place] | [phone] | | [facility] | | [address] | | | - LABORATORY | | | | + + + + + | [facility] | [address] | [place], [place] | | | [facility] | | [address] | | | - LABORATORY | | [...] + | [facility] | [address] | [place] | [phone] | | [facility] | | [address] | | | - LABORATORY | | | | + + + + + | [facility] | [address] | [place], [place] | | | [facility] | | [address] | | | - LABORATORY | | [...] +---------+ | [employer]MIN | [place] | [id number] | Indemn | | | | | NS | | ity | | | | | ADMIN | | | | | | | [place] | | | | | | | [place] | | | | | + +--------+ +--------+ +---------+ | MEDICARE | MEDICA | [id number] | Medica | [phone] | | | | RE | | re | [phone] | | | | PART A | | | | | | | AND B | | | | | + +--------+ +--------+ +---------+ | MEDICAID [place] | MEDICA | [id number] | Medica | [phone] | | [...] | | | lady | | | [phone] | [phone] | + +--------+ +--------+ + +
--- OUTSIDE RECORDS SUMMARY | 2018-06-09 15:00 | XMS ---
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 Events No recent Security Events currently on file CRITERIA MET - [facility] - Has Care Guidelines - [facility] - 2 Visits in 30 Days [facility] 06/08/2018-Current PHONE: [phone] jairon santiago Current PHONE: [phone] TITI Verdin [facility] Current PHONE: [phone] Primary Care Primary Care Current PHONE: [phone] Hien Neal Primary [facility] Current PHONE: Unknown Guidelines Source: [facility] Guidelines Date: 05/03/2018 Care Recommendation: Created On: [...] care guidelines exist for the following facilities: [facility] ( 07/05/2017 ) [facility] ( 07/01/2017 ) Care History Medical/Surgical 11/05/2017 [facility] - Please contact Shy from [facility] if patient is seen at ED . [...] ED please contact Community Health WorkerJosephine at [phone]. These are guidelines and the provider should exercise clinical judgment when providing care. 06/30/2017 [facility] Diverticulosis HTN (hypertension) Hyperlipidemia Obesity CARDIAC CATHERIZATION COLONOSCOPY SHOULDER ARTHROSCOPY STOMACH SURGERY UPPER GASTROINTESTINAL ENDOSCOPY VENTRAL HERNIA REPAIR ? 06/30/2017 [facility] Diverticulosis HTN (hypertension) Hyperlipidemia Obesity CARDIAC CATHERIZATION COLONOSCOPY SHOULDER ARTHROSCOPY STOMACH SURGERY UPPER GASTROINTESTINAL ENDOSCOPY VENTRAL HERNIA REPAIR ? Substance Use/Overdose 06/30/2017 [facility] History of alcohol abuse, multiple ED visits for intoxication and withdrawl. History of marijuana use. Infection/Chronic 06/30/2017 [facility] Hx of chronic pain- abdominal and shoulder. 06/30/2017 [facility] Hx of chronic pain- abdominal and shoulder. Micheal VISIT COUNT (12 MO.) [address] Anthony [place] TOTAL 14 NOTE: Visits indicate total known visits. ED/UCC VISIT TRACKING (12 MO.) 06/09/2018 14:56 [facility] [place] TYPE: Emergency COMPLAINT: - STOMACH PAIN 06/08/2018 01:17 [facility] [place] TYPE: Emergency COMPLAINT: - ABD PAIN 06/06/2018 13:19 [facility] [place] TYPE: Emergency COMPLAINT: - RT SHOULDER PAIN DIAGNOSES: - Essential (primary) hypertension - Unspecified injury of right shoulder and upper arm, initial encounter - Nicotine dependence, unspecified, uncomplicated - Other intermediate manager (current) drug therapy - Pain in right shoulder 06/03/2018 22:35 [facility] TYPE: Emergency DIAGNOSES: - Major depressive disorder, single episode, unspecified - Pain in right shoulder - Hypokalemia - Shoulder Pain - Suicidal ideations - Alcohol use, unspecified with intoxication, unspecified 05/31/2018 17:26 [facility] [place] TYPE: Emergency DIAGNOSES: - Pain in right shoulder - detox - Shoulder Pain - Detox Evaluation - Other chronic pain 11/09/2017 18:29 [facility] [place] TYPE: Emergency DIAGNOSES: - Alcohol Problem - Detox - Alcohol abuse, uncomplicated 11/06/2017 11:34 [facility] [place] TYPE: Emergency COMPLAINT: - RIGHT SIDED RIB PAIN/INJURY DIAGNOSES: - PURE HYPERCHOLESTEROLEMIA, UNSPECIFIED - Pleurodynia - Fall from chair, initial encounter - Personal history of nicotine dependence - Other custodial (current) drug therapy - Contusion of right front wall of thorax, initial encounter - Essential (primary) hypertension - Pure hypercholesterolemia, unspecified 11/03/2017 18:21 [place] [place] TYPE: Emergency COMPLAINT: - ABD PAIN DIAGNOSES: - Other custodial (current) drug therapy - Upper abdominal pain, unspecified - Personal history of nicotine dependence - Right upper quadrant pain - Essential (primary) hypertension 11/01/2017 10:[address] [facility] TYPE: Emergency COMPLAINT: - FALL DIAGNOSES: - Personal history of nicotine dependence - Pure hypercholesterolemia, unspecified - Other intermediate manager (current) drug therapy - Fall on same level from slipping, tripping and stumbling without subsequent striking against object, initial encounter - PURE HYPERCHOLESTEROLEMIA, UNSPECIFIED - Pain in right shoulder - Essential (primary) hypertension [facility] DIAGNOSES: - abd pain - Epigastric pain - Abdominal Pain - Alcohol dependence, uncomplicated - Other stimulant abuse, uncomplicated - Hypokalemia 07/12/2017 15:53 [facility] TYPE: Urgent Care DIAGNOSES: - Localized enlarged lymph nodes - Neck Pain 07/05/2017 03:57 [facility] TYPE: Emergency DIAGNOSES: - Overdose (Intentional) - Suicidal - Nonpsychotic mental disorder, unspecified 07/03/2017 21:38 [facility] TYPE: Emergency DIAGNOSES: - Anxiety - Poisoning by unspecified drugs, medicaments and biological substances, intentional self-harm, initial encounter - Anxiety; Intoxicated - Alcohol use, unspecified with intoxication, uncomplicated 06/30/2017 06:42 [facility] [place] TYPE: Emergency COMPLAINT: - CHEST PAIN DIAGNOSES: - Personal history of nicotine dependence - Essential (primary) hypertension - Precordial pain - Other custodial (current) drug therapy 06/15/2017 10:[address] [facility] [address] [facility] TYPE: Emergency DIAGNOSES: - Unspecified abdominal pain - abd pain - Abdominal Pain INPATIENT VISIT TRACKING (12 MO.) No inpatient visits to display in this time frame [email or web address]
== END 2018-06-09 21:13 | disposition home or self-care (01) ==
LOC: ED 14:55
DX: R10.9 Unspecified abdominal pain (principal); I10 Essential (primary) hypertension; F17.200 Nicotine dependence, unspecified, uncomplicated; Z79.899 Other long term (current) drug therapy
CPT/HCPCS: 74177; 80053; 81001; 83690; 85025; 99284; Q9967

== ENCOUNTER 2018-06-12 00:45 | Emergency (ER) | payer MEDICARE, OTHER ==
[~2018-06-12] VITALS: Ht 160 cm; Wt 95.3 kg
--- OUTSIDE RECORDS SUMMARY | ~2018-06-12 | XMS | Clinical Summary ---
Demographics + + + | Address | [address] | | | [place] [address] | + + + | Home Phone | | + + + | Preferred Language | Unknown | + + + | Marital Status | | + + + | Denominational Affiliation | Unknown | + + + | Race | Unknown | + + + | Ethnic Group | Unknown | + + + Author + + + | Author | and [facility] | | | and Javyana | + + + | Organization | [facility] | | | and [...] + + + + + | Mine Con[address] | ECON | [place] | | | | | [address] | | + + + + + Care Team Providers + +------+ + | Care Manager Public Name | Role | Phone | + +------+ + | Neeru Leggett | PP | | + +------+ + Allergies No Known Allergies Current Medications + + +--------+---------+------+------+-------+ | Prescription | Sig. | Disp. | Refills | Star | End | Statu | | | | | | t | Date | s | | | | | | Date | | | + + +--------+---------+------+------+-------+ | lisinopril | Take 40 mg by mouth | | | | | Activ | | (PRINIVIL,ZESTRIL) | Daily. | | | | | e | | 40 MG tablet | | | | | | | + + +--------+---------+------+------+-------+ | simvastatin | Take 10 mg by mouth | | | | | Activ | | (ZOCOR) 10 mg tablet | nightly. | | | | | e | + + +--------+---------+------+------+-------+ | amLODIPine | Take 5 mg by mouth | | | | | Activ | | (NORVASC) 5 mg | Daily. | | | | | e | | tablet | | | | | | | + + +--------+---------+------+------+-------+ | acetaminophen | Take 1,000 mg by | | | | | Activ | | (TYLENOL) 500 mg | mouth every 6 hours | | | | | e | | tablet | as needed for Pain. | | | | | | + + +--------+---------+------+------+-------+ | gabapentin | Take 800 mg by mouth | | | | | Activ | | (NEURONTIN) 800 MG | 3 times daily. | | | | | e | | tablet | | | | | | | + + +--------+---------+------+------+-------+ | cholecalciferol | Take 1,000 Units by | | | | | Activ | | (VITAMIN D-3) 1,000 | mouth Daily. | | | | | e | | units tablet | | | | | | | + + +--------+---------+------+------+-------+ | | Take 1-2 tablets by | 15 | 0 | 09/1 | | Activ | | oxyCODONE-acetaminop | mouth every 6 hours | tablet | | 5/20 | | e | | hen (PERCOCET) 5-325 | as needed for Pain. | | | 18 | | | | mg per tablet | | | | | | | + + +--------+---------+------+------+-------+ | potassium chloride | Take 1 tablet by | 28 | 0 | 05/21 | 05/22 | Activ | | (KLOR-CON) 10 mEq | mouth 2 times daily | tablet | | 02/06 | 06/09 | e | | CR tablet | for 14 days. | | | 18 | 18 | | + + +--------+---------+------+------+-------+ | tamsulosin | | | | 09/20 | 05/21 | Disco | | (FLOMAX) 0.4 mg CAPS | | | | 06/09 | 10/09 | ntinu | | | | | | 18 | 18 | ed | + + +--------+---------+------+------+-------+ | buprenorphine | Place 2 mg under the | | | | 05/21 | Disco | | (SUBUTEX) 2 mg SUBL | tongue 2 times | | | | 10/09 | ntinu | | | daily (with | | | | 18 | ed | | | breakfast & dinner). | | | | | | + + +--------+---------+------+------+-------+ Active Problems + + + | Problem | Noted Date | + + + | Soft tissue mass | 07/08/2017 | + + + + + | Overview: Last Assessment & Plan: | | Back of the right hand | | ddx lipoma vs. Ganglion | | Referral to hand surgery for consultation per patient request | + + + + + | Suicide attempt (HCC) | 07/06/2017 | + + + + + | Overview: Overview: | | By overdose of his baclofen twice | | ER visit and [employer] eval 07/03/17 and 07/05/17 | + + + + + | Behavior problem, adult | 05/17/2017 | + + + + + | Overview: Overview: Cursing at hospital staff d/t not | | receiving pain medications - 11/2016 | + + + + + | Depression | 05/17/2017 | + + + + + | Overview: Overview: Not on medication. Previously on cymbalta | | - did not do well with this per outside recordsFinds good | | support w/ jew groups | + + + + + | Prediabetes | 05/17/2017 | + + + + + | Overview: Overview: | | Type II not currently on medication | | a1c 6.1 12/2016 | | a1c 5.8 04/2017 - improving | | | | Consider checkign q12 mo | | | | Last Assessment & Plan: | | Recheck a1c - 6 mo ago a1c 6.1 | + + + + + | Alcoholism (HCC) | 04/15/2017 | + + + + + | Overview: Overview: Per ER note 04/13/17Overview: Per ER note | | 04/13/17ctive - patient binge drinking to control chronic painPer | | ER note again 06/15/2017 - still drinking; unable to get detox | | at [facility] Assessment & Plan: Self medicates with ETOH when out of | | narcoticsVery dangerous behavior - advised on risksPatient | | declined referral to treatment or to meet with [facility] | |Per ER note again 06/15/2017 - still drinking; unable to get detox [place] | | | |Last Assessment & Plan: | |Self medicates with ETOH when out of narcotics | |Very dangerous behavior - advised on risks | |Patient declined referral to treatment or to meet with [facility] | + + + + + | Chronic pain of both shoulders | 04/12/2017 | + + + + + | Overview: Overview: Hx multiple RC surgeryOverview: L | | shoulder arthroscopy with subacromial decompression x 2 (2010 | | with Dr. Espinoza and re-injury with re-repair 2017 at | | [facility])Previously completed PTInjections - minimal reliefSee | | chronic painLast Assessment & Plan: Chronic shoulder pain with | | history of multiple shoulder surgeries and previous PT and | | injections. Referral placed to [facility] per patient | | preference | | | |Last Assessment & Plan: | |Chronic shoulder pain with history of multiple shoulder surgeries and previous PT and injec tions. Referral placed to [facility] per patient preference | + + + + + | Former smoker | 04/12/2017 | + + + + + | Overview: Overview: | | Quit 09/2016 | + + + + + | Neuropathy | 04/12/2017 | + + + + + | Overview: Overview: | | Lead testing normal | | | | Referred to neurology per request of GI | + + + + + | Chronic pain | 03/30/2017 | + + + + -+ | Overview: Overview: Followed by [facility]; chronic | | narcoticsHas and understands how to use NarcanOverview: Followed | | by [facility]; chronic narcoticsHas and understands | | how to use NarcanNo NSAIDS d/t history stomach ulcersDid not do | | well previously on gabapentin or cymbaltaLast Assessment & Plan: | | Patient apparently for some reason is not able to be seen by the | | local pain clinic any more - we are currently working on | | validating his storyHe has been without narcotics x 2 months - I | | do not feel the need to give him any today or taper him as I | | suspect he has already gone through withdrawal. I do not feel | | comfortable maintaining this patient on chronic narcotics given | | his history of aggression and comorbid alcoholism and mental | | health. [facility] to discuss non-narcotic alternatives | | today such as effexor or amitriptylineF/u as needed | |Patient refused to discuss non-narcotic alternatives today such as effexor or amitriptyline | |F/u as needed | + -+ + + + | Class 1 obesity | 03/30/2017 | + + + | Obesity, Class II, BMI 35-39.9 | 03/30/2017 | + + + + + | Overview: Last Assessment & Plan: Recommend diet lower in | | sugars/ processed carbohydrates and high in lean protein, healthy | | fat, and fresh produce. Recommend target of 150 minutes exercise | | per week. | + + + + + | Chronic abdominal pain | 02/24/2017 | + + + + + | Overview: Overview: Multiple hernia repair. Followed by GI | | and surgeryOverview: Multiple hernia repair. Followed by GI and | | surgeryDr. Lui referred him to [facility] for second opinion - | | pending first visit | |Multiple hernia repair. Followed by GI and surgery | |Dr. Lui referred him to [facility] for second opinion - pending first visit | + + + + + | Change in bowel habits | 02/24/2017 | + + + | Diarrhea | 02/24/2017 | + + + | Status post repair of ventral hernia | 02/24/2017 | + + + | Congenital malrotation | 02/24/2017 | + + + + + | Overview: Overview: | | defect | | Repaired with mesh age 41 | + + + + + | Incisional hernia, without obstruction or gangrene | 01/13/2017 | + + + | Incarcerated incisional hernia | 01/13/2017 | + + + | Epigastric pain | 01/12/2017 | + + + | Ventral hernia without obstruction or gangrene | 01/12/2017 | + + + | Esophagitis | 12/09/2016 | + + + + + | Overview: Overview: | | Daily PPI - omeprazole 40 mg daily | + + + + + | PUD (peptic ulcer disease) | 12/09/2016 | + + + + + | Overview: Overview: | | Daily PPI; omperazole 40 mg daily | | | | Overview: | | Per endoscopy | | Daily PPI; omperazole 40 mg daily | | Last Cr in hospital 05/2017 normal | + + + + + | Precordial pain | 12/08/2016 | + + + | Hypokalemia | 12/08/2016 | + + + | Essential hypertension | 12/08/2016 | + + + + + | Overview: Overview: | | Controlled; | | | | Overview: | | Controlled; | | | | Last electrolytes in hospital 05/2017 normal | + + + + + | Pure hypercholesterolemia | 12/08/2016 | + + + | Combined fat and carbohydrate induced hyperlipemia | 12/08/2016 | + + + + + | Overview: Overview: | | Simvastatin 10 mg nightly | + + Encounters +--------+ + + + + | Date | Type | Specialty | Care Team | Description | +--------+ + + + + | 06/03/ | Emergency | | Manuel Leggett, | Acute pain of right | | 2018 - | | | MD | shoulder (Primary | | | | | | Dx); Depression, | | 06/04/ | | | | unspecified | | 2017 | | | | depression type; | | | | | | Suicidal ideation; | | | | | | Hypokalemia; | | | | | | Alcoholic | | | | | | intoxication with | | | | | | complication (HCC) | +--------+ + + + + | 06/03/ | Hospital | | [facility] | Internal derangement | | 2017 | Encounter | | [facility] | of right shoulder; | | | | | | Right shoulder pain, | | | | | | unspecified | | | | | | chronicity; Primary | | | | | | osteoarthritis of | | | | | | right shoulder | +--------+ + + + + | 06/03/ | Hospital | | Heriberto Laurent | Internal derangement | | 2018 | Encounter | | [facility], | of right shoulder; | | | | | [facility] | Right shoulder pain, | | | | | | unspecified | | | | | | chronicity; Primary | | | | | | osteoarthritis of | | | | | | right shoulder | +--------+ + + + + | 05/31/ | Emergency | | Joe Kong | Chronic right | | 2018 | | | MD Nain | shoulder pain | | | | | | (Primary Dx) | +--------+ + + + + | 05/06/ | Procedure | | | | | 2018 | Pass | | | | +--------+ + + + + | 05/06/ | Orders Only | | Heriberto Laurent | Internal derangement | | 2018 | | | [facility] | of right shoulder | | | | | | (Primary Dx); Right | | | | | | shoulder pain, | | | | | | unspecified | | | | | | chronicity; Primary | | | | | | osteoarthritis of | | | | | | right shoulder | +--------+ + + + + | 05/05/ | Office | | Heriberto Laurent | Internal derangement | | 2017 | Visit | | [facility] | of right shoulder | | | | | | (Primary Dx); Right | | | | | | shoulder pain, | | | | | | unspecified | | | | | | chronicity | +--------+ + + + + from Last 3 Months Immunizations + + + + | Name | Dates Previously Given | Next Due | + + + + | TDAP, (ADOL/ADULT) | 03/30/2017 | | + + + + | VARICELLA, 2 DOSE | 04/01/2017 | | | (PED/ADOL/ADULT) | | | + + + + Family History + + +------+ + | Medical History | Relation | Name | Comments | + + +------+ + | Stomach cancer | Father | | | + + +------+ + | High blood pressure | Mother | | | + + +------+ + | High cholesterol | Mother | | | + + +------+ + | Prostate cancer | Neg Hx | | | + + +------+ + + +------+ + + | Relation | Name | Status | Comments | + +------+ + + | Father | | | | + +------+ + + | Mother | | Alive | | + +------+ + + Social History + + + [...] on file | | + + + Last Filed Vital Signs + + + + | Vital Sign | Reading | Time Taken | + + + + | Blood Pressure | 140/92 | 06/04/201899 PDT | + + + + | Pulse | 75 | 06/04/201899 PDT | + + + + | Temperature | 36.7 C (98.1 F) | 06/03/20182238 PDT | + + + + | Respiratory Rate | 18 | 06/03/20182238 PDT | + + + + | Oxygen Saturation | 96% | 06/04/201899 PDT | + + + + | Inhaled Oxygen | - | - | | Concentration | | | + + + + | Weight | 90.7 kg (200 lb) | 05/31/20181735 PDT | + + + + | Height | 160 cm (5' 3") | 05/31/20181735 PDT | + + + + | Body Mass Index | 35.43 | 05/31/20181735 PDT | + + + + Plan of Treatment +--------+---------+ + + + | Date | Type | Specialty | Care Team | Description | +--------+---------+ + + + | 06/17/ | Office | | Joe Collier, | | | 2017 | Visit | | MD Micaela TURNER | | | | | | [place] | | | | | | [phone] | | | | | | [phone] | | | | | | | | +--------+---------+ + + + + + + + + | Health Maintenance | Due Date | Last Done | Comments | + + + + + | Hepatitis C | | | | | Screening | 2 | | | + + + + + | Vaccine: | | | | | Pneumococcal 19-64 | 1 | | | | (PPSV23 only) Medium | | | | | Risk (1 of 1 - | | | | | PPSV23) | | | | + + + + + | Vaccine: Influenza | | | | | (#1) | 8 | | | + + + + + | Colorectal Cancer | | 03/09/2017, 03/09/2017 | | | Screening | 7 | | | | (Colonoscopy) | | | | + + + + + | Vaccine: | | 03/30/2017 | | | Dtap/Tdap/Td (2 - | 7 | | | | Td) | | | | + + + + + Procedures + +--------+ + + + | Procedure Name | Priori | Date/Time | Associated Diagnosis | Comments | | | ty | | | | + +--------+ + + + | TSH | STAT | 06/03/2018 | | Results for this | | | | 2254 PDT | | procedure are in the | | | | | | results section. | + +--------+ + + + | URINALYSIS WITH | STAT | 06/03/2018 | | Results for this | | MICROSCOPIC WITH | | 2254 PDT | | procedure are in the | | CULTURE IF INDICATED | | | | results section. | + +--------+ + + + | DRUGS OF ABUSE, | STAT | 06/03/2018 | | Results for this | | SCREEN, URINE | | 2254 PDT | | procedure are in the | | | | | | results section. | + +--------+ + + + | ACETAMINOPHEN LEVEL | STAT | 06/03/2018 | | Results for this | | | | 2254 PDT | | procedure are in the | | | | | | results section. | + +--------+ + + + | SALICYLATE LEVEL | STAT | 06/03/2018 | | Results for this | | | | 2254 PDT | | procedure are in the | | | | | | results section. | + +--------+ + + + | ALCOHOL | STAT | 06/03/2018 | | Results for this | | | | 2254 PDT | | procedure are in the | | | | | | results section. | + +--------+ + + + | COMPREHENSIVE | STAT | 06/03/2018 | | Results for this | | METABOLIC PANEL | | 2254 PDT | | procedure are in the | | | | | | results section. | + +--------+ + + + | CBC WITH | STAT | 06/03/2018 | | Results for this | | DIFFERENTIAL | | 2254 PDT | | procedure are in the | | | | | | results section. | + +--------+ + + + | ED INFORMATION | Routin | 06/03/2018 | | | | EXCHANGE | e | 2238 PDT | | | + +--------+ + + + +---+--------+ | | | | | Proced | | | ure | | | Note - | | | Haley, | | | Lab In | | | | | | Hlseve | | | n - | | | | | | 2017 | | | 2238 | | | PDT | | | Format | | | ting | | | of | | | this | | | note | | | may be | | | | | | differ | | | ent | | | from | | | the | | | origin | | | al.HALEY | | | E22:35 | | | PEDRO | | | [id number] | | | [id number] | | | This | | | patien | | | t has | | | regist | | | ered | | | at the | | | | | | Provid | | | ence | | | [facility] | | [facility] | | | | | | Emerge | | | ncy | | | Depart | | | ment | | | For | | | more | | | inform | | | ation | | | visit: | | | | | | https: | | | //secu | | | re.[email or web address] | | | ecarep | | | [email or web address] | | | m/liz | | | ent/87 | | | [id number] | | | -0eef- | | | 417c-[id number] | | | 178-01 | | | [id number] | | | d0cb | | | Securi | | | ty | | | Events | | | No | | | recent | | | | | | Securi | | | ty | | | Events | | | | | | curren | | | tly on | | | | | | fileED | | | Care | | | Guidel | | | johnny | | | from | | | Provid | | | ence | | | [facility] | | | Center | | | Last | | | Update | | | d: | | | 10/12/ | | | 17 | | | 2:02 | | | PM | | | Care | | | Recomm | | | endati | | | on: | | | It is | | | reccom | | | ended | | | that | | | ALL | | | medica | | | tion | | | refill | | | s are | | | manage | | | d by | | | PCP. | | | Do not | | | | | | prescr | | | ibeor | | | benzod | | | iazepi | | | kelly | | | from | | | ED. | | | Refer | | | Pedro | | | to | | | Case | | | Manage | | | ment | | | at | | | each | | | ED | | | visit | | | for | | | coordi | | | nation | | | of | | | follow | | | up | | | care | | | with | | | PCP.Th | | | eve | | | are | | | guidel | | | johnny | | | and | | | the | | | provid | | | er | | | should | | | | | | exerci | | | se | | | clinic | | | al | | | judgme | | | nt | | | when | | | provid | | | ing | | | care.A | | | dditio | | | nal | | | plans | | | are | | | also | | | availa | | | ble | | | online | | | from | | | the | | | follow | | | ing | | | facili | | | ties: | | | [facility] | | | , | | | Consis | | | tent | | | Care | | | Recent | | | | | | Emerge | | | ncy | | | Depart | | | ment | | | Visit | | | [facility] | | | yAdmit | | | Date | | | Facili | | | ty | | | City | | | State | | | Type | | | Major | | | Type | | | Diagno | | | ses or | | | Chief | | | | | | Compla | | | int | | | Sep | | | 14, | | | 2018 | | | Provid | | | ence | | | [facility] | [place] | | | [place] | | | Emerge | | | ncy | | | Emerge | | | ncy | | | Sep | | | 11, | | | 2018 | | | Provid | | | ence | | | [facility] [place] | | | [place] | | | Emerge | | | ncy | | | Emerge | | | ncy | | | detox | | | | | | Should | | | er | | | Pain | | | | | | Detox | | | Evalua | | | tion | | | Pain | | | in | | | right | | | should | | | er | | | Other | | | chroni | | | c pain | | | E.D. | | | Visit | | | Count | | | (12 | | | mo.)Fa | | | cility | | | | | | Visits | | | Low | | | Acuity | | | | | | Provid | | | ence | | | [facility] | | [facility] l | | | Center | | | 7 0 | | | [facility] | | | [facility] | | | al 4 0 | | | Total | | | 11 0 | | | Note: | | | Visits | | | | | | indica | | | te | | | total | | | known | | | visits | | | . | | | Medica | | | id Low | | | | | | Acuity | | | Dx | | | are | | | the | | | number | | | of | | | primar | | | y | | | diagno | | | ses on | | | the | | | Medica | | | id's | | | Low | | | Acuity | | | dx | | | list. | | | | | | Recent | | | | | | Inpati | | | ent | | | Visit | | | [facility] | | | yNo | | | record | | | ed | | | inpati | | | ent | | | visits | | | . PDMP | | | | | | Report | | | Rx | | | Detail | | | s (6 | | | Mo.)Fi | | | ll | | | Date | | | Drug | | | Descri | | | ption | | | Qty. | | | Prescr | | | iber | | | CS MED | | | | | | 2018-0 | | | 8-23 | | | BUPREN | | | ORPHIN | | | -NALOX | | | ON 8-2 | | | MG SL | | | 42 | | | CATHER | | | INE | | | LUCIANO | | | SON 3 | | | 720 | | | 2018-0 | | | 8-21 | | | BUPREN | | | ORPHIN | | | -NALOX | | | ON 8-2 | | | MG SL | | | 42 | | | CATHER | | | INE | | | LUCIANO | | | SON 3 | | | 0 | | | 2018-0 | | | 8-16 | | | BUPREN | | | ORPHIN | | | -NALOX | | | ON 8-2 | | | MG SL | | | 21 | | | CATHER | | | INE | | | LUCIANO | | | SON 3 | | | 0 | | | 2018-0 | | | 8-09 | | | BUPREN | | | ORPHIN | | | -NALOX | | | ON 8-2 | | | MG SL | | | 21 | | | CATHER | | | INE | | | LUCIANO | | | SON 3 | | | 0 | | | 2018-0 | | | 8-02 | | | BUPREN | | | ORPHIN | | | -NALOX | | | ON 8-2 | | | MG SL | | | 21 | | | CATHER | | | INE | | | LUCIANO | | | SON 3 | | | 0 | | | 2018-0 | | | 7-26 | | | BUPREN | | | ORPHIN | | | -NALOX | | | ON 8-2 | | | MG SL | | | 21 | | | CATHER | | | INE | | | LUCIANO | | | SON 3 | | | 0 | | | 2018-0 | | | 7-20 | | | BUPREN | | | ORPHIN | | | -NALOX | | | ON 8-2 | | | MG SL | | | 21 | | | CATHER | | | INE | | | LUCIANO | | | SON 3 | | | 0 Rx | | | [facility] | | | y (12 | | | Mo.)Me | | | tric | | | Count | | | CS | | | II-V | | | Rx 17 | | | CS-II | | | Rx 1 | | | Quanti | | | ty | | | Dispen | | | sed | | | 432 | | | Unique | | | | | | Prescr | | | ibers | | | 3 | | | Unique | | | | | | Pharma | | | cies 3 | | | | | | Benzos | | | 1 | | | Opioid | | | s 8 | | | Long | | | Acting | | | | | | Opioid | | | s 0 | | | Care | | | Provid | | | ersPro | | | vider | | | PRC | | | Type | | | Phone | | | Fax | | | Servic | | | e | | | Dates | | | pamela, | | | sandoval | | | s | | | Specia | | | list | | | [phone]) | | | [phone] | | | [phone] | | | [phone]) | | | [phone] | | | [phone] | | | Curren | | | t | | | Heathe | | | r | | | [place] | | | , ADHESIVE PRIMER, | | | ADHESIVE PRIMER | | | Primar | | | y Care | | | (509) | | | | | | [phone] | | | 50 | | | (509) | | | [phone] | | | 61 | | | Curren | | | t | | | Primar | | | y Care | | | | | | Primar | | | y Care | | | (503) | | | | | | [phone] | | | 00 | | | Curren | | | t | | | Suwitd | | | a | | | Cholit | | | kul | | | Primar | | | y Care | | | | | | Curren | | | t | | | Care | | | Histor | | | ySubst | | | ance | | | Use/Ov | | | erdose | | | 10/11/ | | | 17 | | | 12:00 | | | AM | | | Provid | | | ence | | | [facility] | | Center | | | Histor | | | y of | | | alcoho | | | l | | | abuse, | | | | | | multip | | | le ED | | | visits | | | for | | | intoxi | | | cation | | | and | | | withdr | | | awl.Hi | | | story | | | of | | | mariju | | | selena | | | use.In | | | fectio | | | n/Herbar[facility] Curator | | | nic10/ | | | 11/17 | | | 12:00 | | | AM | | | Provid | | | ence | | | [facility] | [facility] l | | | Center | | | Hx of | | | chroni | | | c | | | pain- | | | abdomi | | | nal | | | and | | | should | | | er.10/ | | | 11/17 | | | 12:00 | | | AM | | | Provid | | | ence | | | [facility] | | | l | | | Center | | | Hx of | | | chroni | | | c | | | pain- | | | abdomi | | | nal | | | and | | | should | | | er.Med | | | ical/S | | | urgica | | | l2/16/ | | | 18 | | | 12:00 | | | AM | | | [facility] | | | [facility] | | | al | | | Please | | | | | | contac | | | t | | | Tatianna | | | ly | | | from | | | Consis | | | tent | | | Care | | | if | | | patien | | | t is | | | seen | | | at ED | | | [phone] | | | . | | | Patien | | | t is | | | curren | | | tly at | | | a | | | Detox | | | Facili | | | ty | | | Care | | | Recomm | | | endati | | | on:Thi | | | s | | | patien | | | t has | | | had 5 | | | or | | | more | | | Emerge | | | ncy | | | Depart | | | ment | | | visits | | | in | | | the | | | last | | | 12 | | | months | | | .Patie | | | nt | | | requir | | | es | | | educat | | | ion on | | | the | | | scope | | | and | | | purpos | | | e of | | | the ED | | | as an | | | acute | | | care | | | provid | | | er not | | | a | | | Primar | | | y Care | | | | | | Provid | | | er and | | | | | | should | | | not | | | be | | | utiliz | | | ed for | | | | | | chroni | | | c | | | condit | | | ions.I | | | f | | | patien | | | t | | | return | | | s to | | | ED | | | please | | | | | | contac | | | t | | | Commun | | | ity | | | Health | | | | | | Worker | | | , | | | Josephine | | | at | | | [phone] | | | .These | | | are | | | guidel | | | johnny | | | and | | | the | | | provid | | | er | | | should | | | | | | exerci | | | se | | | clinic | | | al | | | judgme | | | nt | | | when | | | provid | | | ing | | | care.1 | | | 0/11/1 | | | 7 | | | 12:00 | | | AM | | | Provid | | | ence | | | [facility] | | | [facility] | | | [facility] | | | Divert | | | iculos | | | isHTN | | | (hyper | | | tensio | | | n)Hype | | | rlipid | | | emiaOb | | | esityC | | | ARDIAC | | | | | | CATHER | | | IZATIO | | | NCOLON | | | OSCOPY | | | SHOULD | | | ER | | | ARTHRO | | | SCOPYS | | | TOMACH | | | | | | SURGER | | | YUPPER | | | | | | GASTRO | | | INTEST | | | INAL | | | ENDOSC | | | OPYVEN | | | TRAL | | | HERNIA | | | | | | REPAIR | | | ?10/11 | | | /17 | | | 12:00 | | | AM | | | Provid | | | ence | | | [facility] | | | [facility] | [facility] | | | Center | | | Divert | | | iculos | | | isHTN | | | (hyper | | | tensio | | | n)Hype | | | rlipid | | | emiaOb | | | esityC | | | ARDIAC | | | | | | CATHER | | | IZATIO | | | NCOLON | | | OSCOPY | | | SHOULD | | | ER | | | ARTHRO | | | SCOPYS | | | TOMACH | | | | | | SURGER | | | YUPPER | | | | | | GASTRO | | | INTEST | | | INAL | | | ENDOSC | | | OPYVEN | | | TRAL | | | HERNIA | | | | | | REPAIR | | | ?Crite | | | olena | | | met | | | PDMP | | | Care | | | Guidel | | | johnny | | | Medica | | | id 5 | | | in | | | 12Know | | | n | | | Aliase | | | sNo | | | known | | | aliase | | | s. The | | | above | | | | | | inform | | | ation | | | is | | | provid | | | ed for | | | the | | | sole | | | purpos | | | e of | | | patien | | | t | | | treatm | | | ent. | | | Use of | | | this | | | inform | | | ation | | | beyond | | | the | | | terms | | | of | | | Data | | | Sharin | | | g | | | Memora | | | ndum | | | of | | | Unders | | | tandin | | | g and | | | Licens | | | e | | | Agreem | | | ent is | | | | | | prohib | | | ited. | | | In | | | certai | | | n | | | cases | | | not | | | all | | | visits | | | may | | | be | | | repres | | | ented. | | | | | | Consul | | | t the | | | aforem | | | ention | | | ed | | | facili | | | ties | | | for | | | additi | | | onal | | | inform | | | ation. | | | 2018 | | | Colle[employer] | | | tive | | | Medica | | | l | | | Techn[employer] | | | logies | | | , [employer] | | | - | | | [place] | | | [place] | | | [place], | | | [place] - | | | info@c | | | ollect | | | ivemed | | | icalte | | | [email or web address] | | | | +---+--------+ + +--------+ + + + | MRI [...] | + +--------+ + + + | FL SHOULDER | Routin | 06/03/2018 | Internal | Results for this | | INJECTION RIGHT FOR | e | 1220 PDT | derangement of right | procedure are in the | | MRI OR CT | | | shoulder Right | results section. | | | | | shoulder pain, | | | | | | unspecified | | | | | | chronicity Primary | | | | | | osteoarthritis of | | | | | | right shoulder | | + +--------+ + + + | DRUGS OF ABUSE, | STAT | 05/31/2018 | | Results for this | | SCREEN, URINE | | 1937 PDT | | procedure are in the | | | | | | results section. | + +--------+ + + + | URINALYSIS WITH | STAT | 05/31/2018 | | Results for this | | MICROSCOPIC WITH | | 1937 PDT | | procedure are in the | | CULTURE IF INDICATED | | | | results section. | + +--------+ + + + | EXTRA LAVENDER TOP | Routin | 05/31/2018 | | Results for this | | TUBE | e | 1909 PDT | | procedure are in the | | | | | | results section. | + +--------+ + + + | EXTRA GOLD TOP TUBE | Routin | 05/31/2018 | | Results for this | | | e | 1909 PDT | | procedure are in the | | | | | | results section. | + +--------+ + + + | EXTRA BLUE TOP TUBE | Routin | 05/31/2018 | | Results for this | | | e | 1909 PDT | | procedure are in the | | | | | | results section. | + +--------+ + + + | SALICYLATE LEVEL | STAT | 05/31/2018 | | Results for this | | | | 1906 PDT | | procedure are in the | | | | | | results section. | + +--------+ + + + | ACETAMINOPHEN LEVEL | STAT | 05/31/2018 | | Results for this | | | | 1906 PDT | | procedure are in the | | | | | | results section. | + +--------+ + + + | TSH | STAT | 05/31/2018 | | Results for this | | | | 1906 PDT | | procedure are in the | | | | | | results section. | + +--------+ + + + | ALCOHOL | STAT | 05/31/2018 | | Results for this | | | | 1906 PDT | | procedure are in the | | | | | | results section. | + +--------+ + + + | COMPREHENSIVE | STAT | 05/31/2018 | | Results for this | | METABOLIC PANEL | | 1906 PDT | | procedure are in the | | | | | | results section. | + +--------+ + + + | CBC WITH | STAT | 05/31/2018 | | Results for this | | DIFFERENTIAL | | 1906 PDT | | procedure are in the | | | | | | results section. | + +--------+ + + + | ED INFORMATION | Routin | 05/31/2018 | | | | EXCHANGE | e | 1730 PDT | | | + +--------+ + + + +---+--------+ | | | | | Proced | | | ure | | | Note - | | | Haley, | | | Lab In | | | | | | Hlseve | | | n - | | | 05/31/ | | | 2018 | | | 1730 | | | PDT | | | Format | | | ting | | | of | | | this | | | note | | | may be | | | | | | differ | | | ent | | | from | | | the | | | origin | | | al.[email or web address] | | | E17:26 | | | PEDRO | | | [id number] | | | [id number] | | | This | | | patien | | | t has | | | regist | | | ered | | | at the | | | | | | Provid | | | ence | | | [facility] | | [facility] | | | | | | Emerge | | | ncy | | | Depart | | | ment | | | For | | | more | | | inform | | | ation | | | visit: | | | | | | https: | | | //secu | | | [email or web address] | | | ecarep | | | [email or web address] | | | m/liz | | | ent/87 | | | [id number] | | | -0eef- | | | [id number]-[id number] | | | 178-01 | | | [id number] | | | d0cb | | | Securi | | | ty | | | Events | | | No | | | recent | | | | | | Securi | | | ty | | | Events | | | | | | curren | | | tly on | | | | | | fileED | | | Care | | | Guidel | | | johnny | | | from | | | Provid | | | ence | | | [facility] | | | Center | | | Last | | | Update | | | d: | | | 10/12/ | | | 17 | | | 2:02 | | | PM | | | Care | | | Recomm | | | endati | | | on: | | | It is | | | reccom | | | ended | | | that | | | ALL | | | medica | | | tion | | | refill | | | s are | | | manage | | | d by | | | PCP. | | | Do not | | | | | | prescr | | | ibeor | | | benzod | | | iazepi | | | kelly | | | from | | | ED. | | | Refer | | | Pedro | | | to | | | Case | | | Manage | | | ment | | | at | | | each | | | ED | | | visit | | | for | | | coordi | | | nation | | | of | | | follow | | | up | | | care | | | with | | | PCP.Th | | | eve | | | are | | | guidel | | | johnny | | | and | | | the | | | provid | | | er | | | should | | | | | | exerci | | | se | | | clinic | | | al | | | judgme | | | nt | | | when | | | provid | | | ing | | | care.A | | | dditio | | | nal | | | plans | | | are | | | also | | | availa | | | ble | | | online | | | from | | | the | | | follow | | | ing | | | facili | | | ties: | | | [facility] | | | , | | | Consis | | | tent | | | Care | | | Recent | | | | | | Emerge | | | ncy | | | Depart | | | ment | | | Visit | | | [place] | | | yAdmit | | | Date | | | Facili | | | ty | | | City | | | State | | | Type | | | Major | | | Type | | | Diagno | | | ses or | | | Chief | | | | | | Compla | | | int | | | Sep | | | 11, | | | 2018 | | | Provid | | | ence | | | [facility] | [facility] | [place] | | | [place] | | | Emerge | | | ncy | | | Emerge | | | ncy | | | detox | | | E.D. | | | Visit | | | Count | | | (12 | | | mo.)Fa | | | cility | | | | | | Visits | | | Low | | | Acuity | | | | | | Provid | | | ence | | | St[facility] | | | [facility] | [facility] | Med[facility] | | | l | | | Center | | | 6 0 | | | [facility] | | y | | | [facility] | | | al 4 0 | | | Total | | | 10 0 | | | Note: | | | Visits | | | | | | indica | | | te | | | total | | | known | | | visits | | | . | | | Medica | | | id Low | | | | | | Acuity | | | Dx | | | are | | | the | | | number | | | of | | | primar | | | y | | | diagno | | | ses on | | | the | | | Medica | | | id's | | | Low | | | Acuity | | | dx | | | list. | | | | | | Recent | | | | | | Inpati | | | ent | | | Visit | | | Summar | | | yNo | | | record | | | ed | | | inpati | | | ent | | | visits | | | . PDMP | | | | | | Report | | | Rx | | | Detail | | | s (6 | | | Mo.)Fi | | | ll | | | Date | | | Drug | | | Descri | | | ption | | | Qty. | | | Prescr | | | iber | | | CS MED | | | | | | 2018-0 | | | 8-23 | | | BUPREN | | | ORPHIN | | | -NALOX | | | ON 8-2 | | | MG SL | | | 42 | | | CATHER | | | INE | | | LUCIANO | | | SON 3 | | | 720 | | | 2018-0 | | | 8-21 | | | BUPREN | | | ORPHIN | | | -NALOX | | | ON 8-2 | | | MG SL | | | 42 | | | CATHER | | | INE | | | LUCIANO | | | SON 3 | | | 0 | | | 2018-0 | | | 8-16 | | | BUPREN | | | ORPHIN | | | -NALOX | | | ON 8-2 | | | MG SL | | | 21 | | | CATHER | | | INE | | | LUCIANO | | | SON 3 | | | 0 | | | 2018-0 | | | 8-09 | | | BUPREN | | | ORPHIN | | | -NALOX | | | ON 8-2 | | | MG SL | | | 21 | | | CATHER | | | INE | | | LUCIANO | | | SON 3 | | | 0 | | | 2018-0 | | | 8-02 | | | BUPREN | | | ORPHIN | | | -NALOX | | | ON 8-2 | | | MG SL | | | 21 | | | CATHER | | | INE | | | LUCIANO | | | SON 3 | | | 0 | | | [address] | | | 7-26 | | | BUPREN | | | ORPHIN | | | -NALOX | | | ON 8-2 | | | MG SL | | | 21 | | | CATHER | | | INE | | | LUCIANO | | | SON 3 | | | 0 | | | 2018-0 | | | 7-20 | | | BUPREN | | | ORPHIN | | | -NALOX | | | ON 8-2 | | | MG SL | | | 21 | | | CATHER | | | INE | | | LUCIANO | | | SON 3 | | | 0 Rx | | | [place] | | | y (12 | | | Mo.)Me | | | tric | | | Count | | | CS | | | II-V | | | Rx 17 | | | CS-II | | | Rx 1 | | | Quanti | | | ty | | | Dispen | | | sed | | | 432 | | | Unique | | | | | | Prescr | | | ibers | | | 3 | | | Unique | | | | | | Pharma | | | cies 3 | | | | | | Benzos | | | 1 | | | Opioid | | | s 8 | | | Long | | | Acting | | | | | | Opioid | | | s 0 | | | Care | | | Provid | | | ersPro | | | vider | | | PRC | | | Type | | | Phone | | | Fax | | | Servic | | | e | | | Dates | | | pamela, | | | sandoval | | | s | | | Specia | | | list | | | (509) | | | [phone] | | | 00 | | | (509) | | | [phone] | | | 62 | | | Curren | | | t | | | Heathe | | | r | | | [place] | | | , ADHESIVE PRIMER, | | | ADHESIVE PRIMER | | | Primar | | | y Care | | | (509) | | | | | | [phone] | | | 50 | | | (509) | | | [phone] | | | 61 | | | Curren | | | t | | | Primar | | | y Care | | | | | | Primar | | | y Care | | | (503) | | | | | | [phone] | | | 00 | | | Curren | | | t | | | Suwitd | | | a | | | Cholit | | | kul | | | Primar | | | y Care | | | | | | Curren | | | t | | | Care | | | Histor | | | yInfec | | | tion/C | | | hronic | | | 10/11/ | | | 17 | | | 12:00 | | | AM | | | Provid | | | ence | | | [facility] | | Center | | | Hx of | | | chroni | | | c | | | pain- | | | abdomi | | | nal | | | and | | | should | | | er.10/ | | | 11/17 | | | 12:00 | | | AM | | | Provid | | | ence | | | [facility] | [facility] | | | l | | | Center | | | Hx of | | | chroni | | | c | | | pain- | | | abdomi | | | nal | | | and | | | should | | | er.Med | | | ical/S | | | urgica | | | l2/16/ | | | 18 | | | 12:00 | | | AM | | | [facility] | | [facility] | | | [facility] | | | al | | | Please | | | | | | contac | | | t | | | Tatianna | | | ly | | | from | | | Consis | | | tent | | | Care | | | if | | | patien | | | t is | | | seen | | | at ED | | | [phone] | | | [phone] | | | . | | | Patien | | | t is | | | curren | | | tly at | | | a | | | Detox | | | Facili | | | ty | | | Care | | | Recomm | | | endati | | | on:Thi | | | s | | | patien | | | t has | | | had 5 | | | or | | | more | | | Emerge | | | ncy | | | Depart | | | ment | | | visits | | | in | | | the | | | last | | | 12 | | | months | | | .Patie | | | nt | | | requir | | | es | | | educat | | | ion on | | | the | | | scope | | | and | | | purpos | | | e of | | | the ED | | | as an | | | acute | | | care | | | provid | | | er not | | | a | | | Primar | | | y Care | | | | | | Provid | | | er and | | | | | | should | | | not | | | be | | | utiliz | | | ed for | | | | | | chroni | | | c | | | condit | | | ions.I | | | f | | | patien | | | t | | | return | | | s to | | | ED | | | please | | | | | | contac | | | t | | | Commun | | | ity | | | Health | | | | | | Worker | | | , | | | Josephine | | | at | | | [phone] | | | [phone] | | | .These | | | are | | | guidel | | | johnny | | | and | | | the | | | provid | | | er | | | should | | | | | | exerci | | | se | | | clinic | | | al | | | judgme | | | nt | | | when | | | provid | | | ing | | | care.1 | | | 0/11/1 | | | 7 | | | 12:00 | | | AM | | | Provid | | | ence | | | [facility] | [facility] l | | | Center | | | Divert | | | iculos | | | isHTN | | | (hyper | | | tensio | | | n)Hype | | | rlipid | | | emiaOb | | | esityC | | | ARDIAC | | | | | | CATHER | | | IZATIO | | | NCOLON | | | OSCOPY | | | SHOULD | | | ER | | | ARTHRO | | | SCOPYS | | | TOMACH | | | | | | SURGER | | | YUPPER | | | | | | GASTRO | | | INTEST | | | INAL | | | ENDOSC | | | OPYVEN | | | TRAL | | | HERNIA | | | | | | REPAIR | | | ?10/11 | | | /17 | | | 12:00 | | | AM | | | Provid | | | ence | | | [facility] | [facility] | [facility] | [facility] | | | l | | | Center | | | Divert | | | iculos | | | isHTN | | | (hyper | | | tensio | | | n)Hype | | | rlipid | | | emiaOb | | | esityC | | | ARDIAC | | | | | | CATHER | | | IZATIO | | | NCOLON | | | OSCOPY | | | SHOULD | | | ER | | | ARTHRO | | | SCOPYS | | | TOMACH | | | | | | SURGER | | | YUPPER | | | | | | GASTRO | | | INTEST | | | INAL | | | ENDOSC | | | OPYVEN | | | TRAL | | | HERNIA | | | | | | REPAIR | | | ?Subst | | | ance | | | Use/Ov | | | erdose | | | 10/11/ | | | 17 | | | 12:00 | | | AM | | | Provid | | | ence | | | [facility] | | | [facility] | | | l | | | Center | | | Histor | | | y of | | | alcoho | | | l | | | abuse, | | | | | | multip | | | le ED | | | visits | | | for | | | intoxi | | | cation | | | and | | | withdr | | | awl.Hi | | | story | | | of | | | mariju | | | selena | | | use.Cr | | | iteria | | | met | | | PDMP | | | Care | | | Guidel | | | johnny | | | Medica | | | id 5 | | | in | | | 12Know | | | n | | | Aliase | | | sNo | | | known | | | aliase | | | s. The | | | above | | | | | | inform | | | ation | | | is | | | provid | | | ed for | | | the | | | sole | | | purpos | | | e of | | | patien | | | t | | | treatm | | | ent. | | | Use of | | | this | | | inform | | | ation | | | beyond | | | the | | | terms | | | of | | | Data | | | Sharin | | | g | | | Memora | | | ndum | | | of | | | Unders | | | tandin | | | g and | | | Licens | | | e | | | Agreem | | | ent is | | | | | | prohib | | | ited. | | | In | | | certai | | | n | | | cases | | | not | | | all | | | visits | | | may | | | be | | | repres | | | ented. | | | | | | Consul | | | t the | | | aforem | | | ention | | | ed | | | facili | | | ties | | | for | | | additi | | | onal | | | inform | | | ation. | | | 2018 | | | [employer] | | | tive | | | Medica | | | l | | | Techn[employer] | | | logies | | | , Inc[employer] | | | - | | | [place] | | | [place] | | | City, | | | [place] - | | | info@c | | | ollect | | | ivemed | | | icalte | | | ch.com | | | | +---+--------+ from Last 3 Months Results Urinalysis with Microscopic with Culture if Indicated (06/03/2018 5342)Only the most recent of 2 results within the time period is included. + + + + + | Component | Value | Ref Range | Performed At | + + + + + | COLOR | Yellow | Light Yellow, | [facility] | | | | Yellow, Straw | [facility] | | | [facility] - | | | | | LAB[facility]ATORY | + + + + + | CLARITY | Clear | Clear | [facility] | | | | | [facility] - | | | | | [facility] | + + + + + | PH UA | 5.0 | 5.0 - 8.0 | [facility] | | | | | [facility] - | | | | | [facility] | + + + + + | Specific Corinne | 1.013 | 1.001 - 1.030 | [facility] | | | | | [facility] - | | | | | [facility] | + + + + + | PROTEIN UA | Negative | Negative | [facility] | | | [facility] - | | | | | [facility] | + + + + + | BLOOD UA | Negative | Negative | [facility] | | | [facility] - | | | | | [facility] | + + + + + | GLUCOSE UA | Negative | Negative | [facility] | | [facility] - | | | | | [facility]ORY | + + + + + | KETONES UA | Negative | Negative | [facility] | | [facility] - | | | | | [facility] | + + + + + | BILIRUBIN UA | Negative | Negative | [facility] | | | | [facility] - | | | | | [facility] | + + + + + | NITRITE UA | Negative | Negative | [facility] | | | | [facility] - | | | | | [facility] | + + + + + | LEUKOCYTES ESTERASE | Negative | Negative | [facility] | | UA | | | [facility] | | | [facility] - | | | | | [facility] | + + + + + | UROBILINOGEN UA | Negative | 0.2 mg/dL, 1.0 | [facility] | | | | mg/dL, Negative | [facility] | | | [facility] - | | | | | [facility] | + + + + + | WBC UA | 0-2 | 0 - 2 /HPF | [facility] | | | | [facility] - | | | | | [facility] | + + + + + | RBC UA | 0-2 | 0 - 2 /HPF | [facility] | | | | [facility] | [facility] - | | | | | [facility] | + + + + + | SQUAMOUS EPITHELIAL | 0-2 | 0 - 2 /LPF | [facility] | | UA | | | [facility] | | | | [facility] - | | | | | LAB[facility]ATORY | + + + + + | BACTERIA UA | Negative | Negative /HPF | [facility] | | | | [facility] - | | | | | [facility]ORY | + + + + + | MUCUS UA | Present (A) | Negative /LPF | [facility] | | | | [facility] | [facility] - | | | | | [facility]ORY | + + + + + | URINE COMMENT | Urine Culture Not | | [facility] | | | Indicated | | [facility] | | | | | CENTER - | | | | | LABORATORY | + + + + + + + | Specimen | + + | Urine - Urine, Clean | | Catch | + + + + + + + | Performing | Address | City/State/Zipcode | Phone Number | | Organization | | | | + + + + + | [facility] | [address] | [place] | [phone] | | [facility] | | [address] | | | - LABORATORY | | | | + + + + + | [facility] | [address] | [place] | | | [facility] | | [address] | | | - LABORATORY | | | | + + + + + Drugs of Abuse, Screen, Urine (06/03/2018 6088)Only the most recent of 2 results within the time period is included. + + + + + | Component | Value | Ref Range | Performed At | + + + + + | Amphetamine Screen, | Negative | Negative | [facility] | | Urine | | | [facility] | | | | | CENTER - | | | | | LABORATORY | + + + + + | Barbiturates Screen, | Negative | Negative | [facility] | | Urine | | | [facility] | | | | | CENTER - | | | | | LABORATORY | + + + + + | Benzodiazepines, | Negative | Negative | [facility] | | Urine, Screen | | | [facility] | | | | | [facility] - | | | | | LABORATORY | + + + + + | Cannabinoids Screen, | Positive (A) | Negative | [facility] | | Urine | | | [facility] | | | | | [facility] - | | | | | LABORATORY | + + + + + | Cocaine Screen, | Negative | Negative | [facility] | | Urine | | | [facility] | | | | | [facility] - | | | | | LABORATORY | + + + + + | Methadone Screen, | Negative | Negative | [facility] | | Urine | | | [facility] | | | | | [facility] - | | | | | LABORATORY | + + + + + | Opiates Screen, | Negative | Negative | [facility] | | Urine | | | [facility] | | | | | [facility] - | | | | | LABORATORY | + + + + + + + | Specimen | + + | Urine - Urine, Clean | | Catch | + + + + + + + | Performing | Address | City/State/Zipcode | Phone Number | | Organization | | | | + + + + + | [facility] | [address] | [place] | [phone] | | [facility] | | [address] | | | - LABORATORY | | | | + + + + + | [facility] | [address] | [place] | | | [facility] | | [address] | | | - LABORATORY | | | | + + + + + CBC with Differential (06/03/2018 1775)Only the most recent of 2 results within the time chuy dietz is included. + +-------+ + + | Component | Value | Ref Range | Performed At | + +-------+ + + | WBC | 9.9 | 4.0 - 11.0 K/uL | [facility] | | | | | [facility] | | | | | CENTER - | | | | | LABORATORY | + +-------+ + + | RBC | 4.90 | 4.30 - 5.70 M/uL | [facility] | | | | | [facility] | | | | | CENTER - | | | | | LABORATORY | + +-------+ + + | Hgb | 15.1 | 13.5 - 18.0 g/dL | [facility] | | | | | [facility] | | | | | [facility] - | | | | | LABORATORY | + +-------+ + + | Hct | 43.1 | 40.0 - 51.0 % | [facility] | | | | | [facility] | | | | | CENTER - | | | | | LABORATORY | + +-------+ + + | MCV | 87.9 | 83.0 - 101.0 fL | [facility] | | | | | [facility] | | | | | [facility] - | | | | | LABORATORY | + +-------+ + + | MCH | 30.9 | 28.0 - 35.0 pg | [facility] | | | | | [facility] | | | | | [facility] - | | | | | LABORATORY | + +-------+ + + | MCHC | 35.1 | 32.0 - 36.0 g/dL | [facility] | | | | | [facility] | | | | | [facility] - | | | | | LABORATORY | + +-------+ + + | RDW-CV | 13.5 | <15.0 % | [facility] | | | | | [facility] | | | | | [facility] - | | | | | LABORATORY | + +-------+ + + | Platelet Count | 287 | 140 - 440 K/uL | [facility] | | | | | [facility] | | | | | [facility] - | | | | | LABORATORY | + +-------+ + + | MPV | 7.7 | fL | [facility] | | | | | [facility] | | | | | [facility] - | | | | | LABORATORY | + +-------+ + + | % Neutrophils | 63.3 | 45.0 - 82.0 % | [facility] | | | | | [facility] | | | | | [facility] - | | | | | LABORATORY | + +-------+ + + | % Lymphocytes | 28.6 | 20.0 - 45.0 % | [facility] | | | | | [facility] | | | | | [facility] - | | | | | LABORATORY | + +-------+ + + | % Monocytes | 7.3 | 4.0 - 12.0 % | [facility] | | | | | [facility] | | | | | [facility] - | | | | | LAB[facility]ATORY | + +-------+ + + | % Eosinophils | 0.2 | 0.0 - 5.0 % | [facility] | | | | [facility] | | [facility] - | | | | | LAB[facility]ATORY | + +-------+ + + | % Basophils | 0.6 | 0.0 - 1.0 % | [facility] | [facility] | [facility] - | | | | | LAB[facility]ATORY | + +-------+ + + | Absolute Neutrophils | 6.20 | 1.80 - 8.50 K/uL | [facility] - | | | | | LAB[facility]ATORY | + +-------+ + + | Absolute Lymphocytes | 2.80 | 0.60 - 3.20 K/uL | [facility] | [facility] | [facility] - | | | | | LAB[facility]ATORY | + +-------+ + + | Absolute Monocytes | 0.70 | 0.00 - 1.00 K/uL | [facility] - | | | | | LAB[facility]ATORY | + +-------+ + + | Absolute Eosinophils | 0.00 | 0.00 - 0.40 K/uL | [facility] | | | [facility] | [facility] - | | | | | LAB[facility]ATORY | + +-------+ + + | Absolute Basophils | 0.10 | 0.00 - 0.10 K/uL | [facility] | | | | | [facility] - | | | | | LAB[facility]ATORY | + +-------+ + + + + | Specimen | + + | Blood | + + + + + + + | Performing | Address | City/State/Zipcode | Phone Number | | Organization | | | | + + + + + | [facility] | [address] | [place], [place] | [phone] | | [facility] | | [address] | | | - LABORATORY | | | | + + + + + | [facility] | [address] | [place], [place] | | | [facility] | | [address] | | | - LABORATORY | | | | + + + + + TSH (06/03/2018 2254)Only the most recent of 2 results within the time period is included. + + + + + | Component | Value | Ref Range | Performed At | + + + + + | TSH | 1.74Comment: This is a | 0.45 - 5.33 uIU/mL | [facility] | | | third generation TSH | | [facility] | | | test. | | CENTER - | | | | | LABORATORY | + + + + + + + | Specimen | + + | Blood | + + + + + + + | Performing | Address | City/State/Zipcode | Phone Number | | Organization | | | | + + + + + | [facility] | [address] | [place] | [phone] | | [facility] | | [address] | | | - LABORATORY | | | | + + + + + | [facility] | [address] | [place] | | | [facility] | | [address] | | | - LABORATORY | | | | + + + + + Ethanol (06/03/2018 1740)Only the most recent of 2 results within the time period is includ ed. + +-------+ + + | Component | Value | Ref Range | Performed At | + +-------+ + + | ALCOHOL, | 127 | <400 mg/dL | [facility] | | SERUM/PLASMA | | | [facility] | | | | | [facility] - | | | | | LABORATORY | + +-------+ + + + + | Specimen | + + | Blood | + + + + + + + | Performing | Address | City/State/Zipcode | Phone Number | | Organization | | | | + + + + + | [facility] | [address] | [place] | [phone] | | [facility] | | [address] | | | - LABORATORY | | | | + + + + + | [facility] | [address] | [place] | | | [facility] | | [address] | | | - LABORATORY | | | | + + + + + Acetaminophen Level (06/03/2018 4416)Only the most recent of 2 results within the time heidi od is included. + +-------+ + + | Component | Value | Ref Range | Performed At | + +-------+ + + | Acetaminophen Level | <10 | <10 ug/mL | [facility] | | | | | [facility] | | | | | [facility] - | | | | | LABORATORY | + +-------+ + + + + | Specimen | + + | Blood | + + + + + + + | Performing | Address | City/State/Zipcode | Phone Number | | Organization | | | | + + + + + | [facility] | [address] | [place] | [phone] | | [facility] | | [address] | | | - LABORATORY | | | | + + + + + | [facility] | [address] | [place] | | | [facility] | | [address] | | | - LABORATORY | | | | + + + + + Salicylate Level (06/03/2018 9121)Only the most recent of 2 results within the time period is included. + +-------+ + + | Component | Value | Ref Range | Performed At | + +-------+ + + | Salicylate Level | <4.0 | <30.0 mg/dL | [facility] | | | | | [facility] | | | | | CENTER - | | | | | LABORATORY | + +-------+ + + + + | Specimen | + + | Blood | + + + + + + + | Performing | Address | City/State/Zipcode | Phone Number | | Organization | | | | + + + + + | [facility] | [address] | [place], [place] | [phone] | | [facility] | | [address] | | | - LABORATORY | | | | + + + + + | [facility] | [address] | [place] | | | [facility] | | [address] | | | - LABORATORY | | | | + + + + + Comprehensive Metabolic Panel (06/03/2018 5724)Only the most recent of 2 results within the time period is included. + + + + + | Component | Value | Ref Range | Performed At | + + + + + | NA | 140 | 136 - 149 mmol/L | [facility] | | | | | [facility] | | | | | CENTER - | | | | | LABORATORY | + + + + + | K | 2.9 (L) | 3.5 - 5.1 mmol/L | [facility] | | | | | [facility] | | | | | CENTER - | | | | | LABORATORY | + + + + + | CL | 107 | 98 - 109 mmol/L | [facility] | | | | | [facility] | | | | | CENTER - | | | | | LABORATORY | + + + + + | CO2 | 20 (L) | 24 - 31 mmol/L | [facility] | | | | | [facility] | | | | | CENTER - | | | | | LABORATORY | + + + + + | ANION GAP | 13 | 3 - 16 mmol/L | [facility] | | | | | [facility] | | | | | CENTER - | | | | | LABORATORY | + + + + + | GLUCOSE | 191 (H) | 70 - 109 mg/dL | [facility] | | | | | [facility] | | | | | CENTER - | | | | | LABORATORY | + + + + + | BUN | 9 | 7 - 18 mg/dL | [facility] | | | | | [facility] | | | | | CENTER - | | | | | LABORATORY | + + + + + | Creatinine, | 0.70 | 0.60 - 1.30 mg/dL | [facility] | | Serum/Plasma | | | [facility] | | | | | CENTER - | | | | | LABORATORY | + + + + + | eGFR if not | >60Comment: GLOMERULAR | >=60 mL/min/1.73m2 | [facility] | | [place] | FILTRATION | | [facility] | | | RATE,ESTIMATED mL/min | | CENTER - | | | /1.02j7Jmuf than 60 | | LABORATORY | | | Chronic kidney | | | | | disease,if found over a | | | | | 3-month period.Less than | | | | | 15 Kidney | | | | | failureFor | | | | | Americans,multiply the | | | | | calculated GFR by 1.21. | | | | | | | | + + + + + | CALCIUM | 8.5 | 8.3 - 10.5 mg/dL | [facility] | | | | | [facility] | | | | | CENTER - | | | | | LABORATORY | + + + + + | ALBUMIN | 3.9 | 3.2 - 5.0 g/dL | [facility] | | | | | [facility] | | | | | CENTER - | | | | | LABORATORY | + + + + + | Bilirubin Total | 0.8Comment: This is an | 0.1 - 1.5 mg/dL | [facility] | | | appended report. These | | [facility] | | | results have been | | CENTER - | | | appended to a previously | | LABORATORY | | | preliminary verified | | | | | report. | | | + + + + + | Total protein | 6.9 | 6.0 - 7.8 g/dL | [facility] | | | | | [facility] | | | | | CENTER - | | | | | LABORATORY | + + + + + | AST | 31Comment: This is an | 10 - 42 U/L | [facility] | | | appended report. These | | [facility] | | | results have been | | CENTER - | | | appended to a previously | | LABORATORY | | | preliminary verified | | | | | report. | | | + + + + + | ALT | 39Comment: This is an | 6 - 45 U/L | [facility] | | | appended report. These | | [facility] | | | results have been | | CENTER - | | | appended to a previously | | LABORATORY | | | preliminary verified | | | | | report. | | | + + + + + | ALK PHOS | 63Comment: This is an | 40 - 110 U/L | [facility] | | | appended report. These | | [facility] | | | results have been | | CENTER - | | | appended to a previously | | LABORATORY | | | preliminary verified | | | | | report. | | | + + + + + | GLOBULIN | 3.0 | 2.1 - 3.8 g/dL | [facility] | | | | | [facility] | | | | | CENTER - | | | | | LABORATORY | + + + + + | Albumin/Globulin | 1.3 | 0.8 - 2.0 | [facility] | | ratio | | | [facility] | | | | | CENTER - | | | | | LABORATORY | + + + + + | BUN/CREA | 12.9 | | [facility] | | | | | [facility] | | | | | CENTER - | | | | | LABORATORY | + + + + + + + | Specimen | + + | Blood | + + + + + + + | Performing | Address | City/State/Zipcode | Phone Number | | Organization | | | | + + + + + | [facility] | [address] | [place] | [phone] | | [facility] | | [address] | | | - LABORATORY | | | | + + + + + | [facility] | [address] | [place] | | | [facility] | | [address] | | | - LABORATORY | | | | + + + + + MRI Shoulder Right Arthrogram w Contrast (06/03/2018 [...] | Procedure Note | + + | Haley, Rad Results In - 06/03/2018 1358 PDT [...] | | | + +---------+ + + FL Shoulder Inj Right for MRI or CT (06/03/2018 1220) + + + | Narrative | Performed At | + + + | [place] SHOULDER INJECTION RIGHT FOR MRI OR CT 06/03/2018 11:56 AM | [facility] | | HISTORY: RIGHT SHOULDER PAIN. COMPARISON: Multiple priors | | | PROTOCOL: After explaining the risks and benefits of the procedure, | | | informed consent was obtained from the patient. Risks discussed | | | included bleeding and infection. Under fluoroscopic guidance, the | | | right shoulder joint was localized. This area was cleansed and draped | | | in the usual sterile fashion. Lidocaine was used for local | | | anesthesia. Using a 3.5" 22-gauge needle, the shoulder joint was | | | accessed. Subsequently, 12 cc of Omnipaque 240, normal saline, and | | | 0.05 cc Gadavist was then injected. The patient tolerated the | | | procedure well. FINDINGS: Contrast is visualized within the | | | shoulder joint, consistent with successful arthrography. | | | IMPRESSION - Successful shoulder arthrogram. Dictated and Signed | | | by: Rory Darby MD Electronically signed: 06/03/2018 2:36 PM | | + + + + + | Procedure Note | + + | Oleksandr Palm Results In - 06/03/2018 1439 PDT [place] SHOULDER INJECTION RIGHT FOR MRI OR CT | | 06/03/2018 11:56 AMHISTORY: RIGHT SHOULDER PAIN.COMPARISON: Multiple priorsPROTOCOL: | | After explaining the risks and benefits of the procedure, informedconsent was obtained | | from the patient. Risks discussed included bleeding andinfection. Under fluoroscopic | | guidance, the right shoulder joint was localized.This area was cleansed and draped in | | the usual sterile fashion. Lidocaine wasused for local anesthesia. Using a 3.5" 22-gauge | | needle, the shoulder joint wasaccessed. Subsequently, 12 cc of Omnipaque 240, normal | | saline, and 0.05 ccGadavist was then injected. The patient tolerated the procedure | | well.FINDINGS:Contrast is visualized within the shoulder joint, consistent with | | successfularthrography.IMPRESSION -Successful shoulder arthrogram.Dictated and Signed | | by: Rory Darby MD Electronically signed: 06/03/2018 2:36 PM | |accessed. Subsequently, 12 cc of Omnipaque 240, normal saline, and 0.05 cc | |Gadavist was then injected. The patient tolerated the procedure well. | | | |FINDINGS: | |Contrast is visualized within the shoulder joint, consistent with successful | |arthrography. | | | |IMPRESSION - | |Successful shoulder arthrogram. | | | |Dictated and Signed by: Rory Darby MD | | Electronically signed: 06/03/2018 2:36 PM | + + + +---------+ + + | Performing | Address | City/State/Zipcode | Phone Number | | Organization | | | | + +---------+ + + | [facility] | | | | + +---------+ + + Extra Lavender Top Tube (05/31/20181908) + +-------+ + + | Component | Value | Ref Range | Performed At | + +-------+ + + | Extra Lavender Top | Done | | [facility] | | Tube | | | [facility] | | | | | CENTER - | | | | | LABORATORY | + +-------+ + + + + | Specimen | + + | Blood | + + + + + + + | Performing | Address | City/State/Zipcode | Phone Number | | Organization | | | | + + + + + | [facility] | [address] | [place], [place] | [phone] | | [facility] | | [address] | | | - LABORATORY | | | | + + + + + | [facility] | [address] | [place], [place] | | | [facility] | | [address] | | | - LABORATORY | | | | + + + + + Extra Gold Top Tube (05/31/20181908) + +-------+ + + | Component | Value | Ref Range | Performed At | + +-------+ + + | EGDT | Done | | [facility] | | | | | [facility] | | | | | CENTER - | | | | | LABORATORY | + +-------+ + + + + | Specimen | + + | Blood | + + + + + + + | Performing | Address | City/State/Zipcode | Phone Number | | Organization | | | | + + + + + | [facility] | [address] | [place], [place] | [phone] | | [facility] | | [address] | | | - LABORATORY | | | | + + + + + | [facility] | [address] | [place], [place] | | | [facility] | | [address] | | | - LABORATORY | | | | + + + + + Extra Blue Top Tube (05/31/2018 1909) + +-------+ + + | Component | Value | Ref Range | Performed At | + +-------+ + + | Extra Blue Top Tube | Done | | [facility] | | | | | [facility] | | | | | CENTER - | | | | | LABORATORY | + +-------+ + + + + | Specimen | + + | Blood | + + + + + + + | Performing | Address | City/State/Zipcode | Phone Number | | Organization | | | | + + + + + | [facility] | [address] | [place] | [phone] | | [facility] | | [address] | | | - LABORATORY | | | | + + + + + | [facility] | [address] | [place], [place] | | | [facility] | | [address] | | | - LABORATORY | | | | + + + + + from Last 3 Months Insurance + +--------+ +--------+ +---------+ | Payer | Benefi | Subscriber | Type | Phone | Address | | | t Plan | ID | | | | | | / | | | | | | | Group | | | | | + +--------+ +--------+ +---------+ | [employer] | VETERA | [id number] | Indemn | | | | | NS | | ity | | | | | ADMIN | | | | | | | [place] | | | | | | | [place] | | | | | + +--------+ +--------+ +---------+ | MEDICARE | MEDICA | [id number] | Medica | [phone] | | | | RE | | re | [phone] | | | | PART A | | | | | | | AND B | | | | | + +--------+ +--------+ +---------+ | MEDICAID [place] | MEDICA | [id number] | Medica | [phone] | | | ID | | id | [id number] | | | | [place] | | | | | | | [place] | | | | | + +--------+ +--------+ +---------+ + +--------+ +--------+ + + | Guarantor Name | Accoun | Relation to | Date | Phone | Billing Address | | | t Type | Patient | of | | | | | | | | | | + +--------+ +--------+ + + | PEDRO CONDE | Person | Self [birth year] Home: | [address] | | | al/Fam | | 2 [phone] | [address] [place] [place] | | | lady | | | [phone] | [phone] | + +--------+ +--------+ + +
--- OUTSIDE RECORDS SUMMARY | ~2018-06-12 | XMS | Encounter Summary ---
Demographics + + + | Address | [address] | | | [place] [address] | + + + | Home Phone | | + + + | Preferred Language | Unknown | + + + | Marital Status | | + + + | Muslim Affiliation | Unknown | + + + | Race | Unknown | + + + | Ethnic Group | Unknown | + + + Author + + + | Author | [facility] | | | and Javyana | + + + | Organization | [facility] | | | [...] [place] | | | | | [address] | | + + + + + Care Team Providers + +------+ + | Care Industrial Workers Name | Role | Phone | + [...] W | | | | | | [place], | | | | | | [place] [address] | | | | | | [phone] | | | +--------+ + + + [...] [place] | | | | | | [address] | | | | | | [phone] | | | | | | | | +--------+---------+ + + + as of this encounter Visit Diagnoses Not on filein this encounter
--- OUTSIDE RECORDS SUMMARY | ~2018-06-12 | XMS | Encounter Summary ---
Demographics + + + | Address | [address] | | | [place] [address] | + + + | Home Phone | | + + + | Preferred Language | Unknown | + + + | Marital Status | | + + + | Lutheran Affiliation | Unknown | + + + | Race | Unknown | + + + | Ethnic Group | Unknown | + + + Author + + + | Author | [facility] | | | and Javyana | + + + | Organization | [facility] | | | and [...] [place] | | | | | [address] | | + + + + + Care Team Providers + +------+ + | Care Paper Products Inspector Name | Role | Phone | + [...] | Internal | Heriberto | [address] | | | | | derangement | [place] | [place], | | | | | of right | [address] | [place] | | | | | shoulder | St [place] | [address] | | | | | Right | [place], [place] | Phone: | | | | | shoulder | [address] | [phone] | | | | | pain, | Phone: | Fax: | | | | | unspecified | [phone] | [phone] | | | | | chronicity | Fax: | | | | | | Primary | [phone] | | | | | | osteoarthrit [...] | Internal | Heriberto | [address] | | | | | derangement | [place] | [place], | | | | | of right | [address] | [place] | | | | | shoulder | St [place] | [address] | | | | | Right | [place], [place] | Phone: | | | | | shoulder | [address] | [phone] | | | | | pain, | Phone: | Fax: | | | | | unspecified | [phone] | [phone] | | | | | chronicity | Fax: | | | | | | Primary | [phone] | | | | | | osteoarthrit [...] | Internal | Heriberto | [address] | | | | | derangement | [place] | [place], | | | | | of right | [address] | [place] | | | | | shoulder | St [place] | [address] | | | | | Right | [place] | Phone: | | | | | shoulder | [address] | [phone] | | | | | pain, | Phone: | Fax: | | | | | unspecified | [phone] | [phone] | | | | | chronicity | Fax: | | | | | | Primary | [phone] | | | | | | osteoarthrit [...] + + | 06/03/ | Hospital | [facility] | Heriberto Laurent | Internal derangement | | 2018 | Encounter | MED CTR MRI [address] | [place] | of right shoulder; | | | | [address] [place], | [address] [place] | Right shoulder pain, | | | | [place] [address] | [place] [address] | unspecified | | | | [phone] | [phone] | chronicity; Primary | | | | [...] [place] | | | | | | [address] | | | | | | [phone] | | | | | | | [...]
--- OUTSIDE RECORDS SUMMARY | ~2018-06-12 | XMS | Encounter Summary ---
Demographics + + + | Address | [address] | | | [place] [address] | + + + | Home Phone | | + + + | Preferred Language | Unknown | + + + | Marital Status | | + + + | Christianity Affiliation | Unknown | + + + | Race | Unknown | + + + | Ethnic Group | Unknown | + + + Author + + + | Author | [facility] | | | and Javyana | + + + | Organization | [facility] | | | [...] [place] | | | | | [address] | | + + + + + Care Team Providers + +------+ + | Care Independent Living Instructor Name | Role | Phone | + [...] | Internal | Heriberto | [address] | | | | | derangement | [place] | [place], | | | | | of right | [address] | [place] | | | | | shoulder | St [place] | [address] | | | | | Right | [place], [place] | Phone: | | | | | shoulder | [address] | [phone] | | | | | pain, | Phone: | Fax: | | | | | unspecified | [phone] | [phone] | | | | | chronicity | Fax: | | | | | | Primary | [phone] | | | | | | osteoarthrit [...] + | 05/06/ | Orders Only | [facility] [place] | Heriberto Laurent | Internal derangement | | 2017 | | ORTHOPEDIC SURGERY | [address] | of right shoulder | | | | [address] | [address] [place] | (Primary Dx); Right | | | | [place], [place] | [place] [address] | shoulder pain, | | | | [address] | [phone] | unspecified | | | | [phone] | | chronicity; Primary | | | [...] [place] | | | | | | [address] | | | | | | [phone] | | | | | | | | +--------+---------+ + + + as of this encounter Results MRI Shoulder Right Arthrogram [...] | Néstor, Rad Results In - 06/03/2018 1439 PDT [place] [...]
--- OUTSIDE RECORDS SUMMARY | ~2018-06-12 | XMS | Encounter Summary ---
Demographics + + + | Address | [address] | | | [place] [address] | + + + | Home Phone | | + + + | Preferred Language | Unknown | + + + | Marital Status | | + + + | Nondenominational Affiliation | Unknown | + + + | Race | Unknown | + + + | Ethnic Group | Unknown | + + + Author + + + | Author | [facility] | | | and Javyana | + + + | Organization | [facility] | | | [...] [place] | | | | | [address] | | + + + + + Care Team Providers + +------+ + | Care Auto Mechanics Instructor Name | Role | Phone | [...] + + | 06/03/ | Emergency | [facility] | Manuel Leggett, | Acute pain of right | | 2018 - | | [facility] CTR EMERGENCY | MD [address] | shoulder (Primary | | | | CENTER [address] | [facility] [place] | Dx); Depression, | | 06/04/ | | [place] | [place] [address] | unspecified | | 2017 | | [address] | [phone] | depression type; | | | | [phone] | | Suicidal ideation; | | | [...] with primary care Follow up at the [place] Follow-up with orthopedics Any additional prescription for pain medicine needs to come from one of your regular physic ians, not the ER The following attachments cannot be sent through Care Everywhere.Depression (Scottish)Alcoho l Intoxication (Scottish)Hypokalemia (Scottish)Shoulder Problems (Scottish)in this encounter Medications at Time of Discharge [...] [place] | | | | | | [address] | | | | | | [phone] | | | | | | | [...] | | | [place] | | | [id number] | | | [id number] | | | This | | | [...] | | | 178-01 | | | [id number] | | | d0cb | | | [...] | | | St. | | | [place] | | | y | | | [...] | | | r | | | [place] | | | , INDUSTRIAL EDITOR, | | | INDUSTRIAL EDITOR | | | Primar | | | [...] | | | fectio | | | n/Kitchen Hand | | | nic10/ | | | [...] | | | St. | | | [place] | | | y | | | [...] | | | [phone] | | | [phone] | | | .These | | | [...] +---+--------+ in this encounter Results TSH (06/03/2018 9488) + + + + + | Component [...] [address] | [place] | [phone] | | [facility] | | [address] | | | - LABORATORY | | | | + + + + + | [facility] | [address] | [place] | | | [facility] | | [address] | | | - LABORATORY | | | | + + + + + Urinalysis with Microscopic with Culture if Indicated (06/03/20182253) + + + + + | Component | Value | Ref Range | Performed At | + + + + + | COLOR | Yellow | Light Yellow, | [facility] | | | | Yellow, Straw | [facility] | | | | | [...] + + + + + | Specific Bandy | 1.013 | 1.001 - 1.030 | [...] + + | Performing | Address | City/[facility]/Zipcode | Phone Number | | Organization | | | | + + + + + | [facility] | [address] | [place], [place] | [phone] | | [facility] | | [address] | | | - LABORATORY | | | | + + + + + | [facility] | [address] | [place] | | | [facility] | | [address] | | | - LABORATORY | | | | + + + + + Drugs of Abuse, Screen, Urine (06/03/2018 0700) + + + + + | Component | Value | Ref Range | Performed At | + + + + + | Amphetamine Screen, | Negative | Negative | [facility] | | Urine | | | [facility] | | | | | CENTER - | | | | | LABORATORY | + + + + + | Barbiturates Screen, | Negative | Negative | [facility] | | Urine | | | [facility] | | | | | [...] ST. | | Urine | | | [facility] | | [...] + | [facility] | [address] | [place], [place] | [phone] | | [facility] | | [address] | | | - LABORATORY | | | | + + + + + | [facility] | [address] | [place], [place] | | | [facility] | | [address] | | | - LABORATORY | | [...] + | [facility] | [address] | [place] | [phone] | | [facility] | | [address] | | | - LABORATORY | | | | + + + + + | [facility] | [address] | [place] | | | [facility] | | [address] | | | - LABORATORY | | | | + + + + + Salicylate Level (06/03/20182253) + +-------+ + + | Component | Value | Ref Range | Performed At | + +-------+ + + | Salicylate Level | <4.0 | <30.0 mg/dL | [facility] | | | | | [facility] | | | | | [...] + | [facility] | [address] | [place], [place] | [phone] | | [facility] | | [address] | | | - LABORATORY | | | | + + + + + | [facility] | [address] | [place], [place] | | | [facility] | | [address] | | | - LABORATORY | | | | + + + + + Ethanol (06/03/20182253) + +-------+ + + | Component | Value | Ref Range | Performed At | + +-------+ + + | ALCOHOL, | 127 | <400 mg/dL | [facility] | | SERUM/PLASMA | | | [facility] | | | | | [...] + | [facility] | [address] | [place] | [phone] | | [facility] | | [address] | | | - LABORATORY | | | | + + + + + | [facility] | [address] | [place] | | | [facility] | | [address] | | | - LABORATORY | | | | + + + + + Comprehensive Metabolic Panel (06/03/20182253) + + + + + | Component | Value | Ref Range | Performed At | + + + + + | NA | 140 | 136 - 149 mmol/L | [facility] | | | | | [facility] | | | | | [...] >=60 mL/min/1.73m2 | [facility] | | [place]AI[place] | FILTRATION | | [facility] | | | RATE,ESTIMATED mL/min | | CENTER - | | | /1.43z6Vgrx than 60 | | LABORATORY | | [...] [facility] | | | | | [facility] | | | | | [...] | | appended report. These | | [facility] | | | results have been | | CENTER - | | | appended to a previously | | LABORATORY | | | preliminary verified | | | | | report. | | | + + + + + | Total protein | 6.9 | 6.0 - 7.8 g/dL | [facility] | | | | | [facility] | | | | | [...] | | appended report. These | | [facility] | | | results have been | | CENTER - | | | appended to a previously | | LABORATORY | | | preliminary verified | | | | | report. | | | + + + + + | GLOBULIN | 3.0 | 2.1 - 3.8 g/dL | [facility] | | | | | [facility] | | | | | CENTER - | | | | | LABORATORY | + + + + + | Albumin/Globulin | 1.3 | 0.8 - 2.0 | [facility] | | ratio | | | [facility] | | | | | CENTER - | | | | | LABORATORY | + + + + + | BUN/CREA | 12.9 | | [facility] | | | | | [facility] | | | | | [...] [address] | [place] | [phone] | | [facility] | | [address] | | | - LABORATORY | | | | + + + + + | [facility] | [address] | [place] | | | [facility] | | [address] | | | - LABORATORY | | | | + + + + + CBC with Differential (06/03/20182253) + +-------+ + + | Component | Value | Ref Range | Performed At | + +-------+ + + | WBC | 9.9 | 4.0 - 11.0 K/uL | [facility]. | | | | | [facility] | | | | | CENTER - | | | | | LABORATORY | + +-------+ + + | RBC | 4.90 | 4.30 - 5.70 M/uL | [facility]. | | | | | [facility] | | | | | [...] [facility] | | | | | [facility] | | | | | [...] + | [facility] | [address] | [place], [place] | [phone] | | [facility] | | [id number] | | | - LABORATORY | | | | + + + + + | [facility] | [address] | [place], [place] | | | [facility] | | [address] | | | - LABORATORY | | [...]
--- OUTSIDE RECORDS SUMMARY | ~2018-06-12 | XMS | Clinical Summary ---
Demographics + + + | Address | [address] | | | [place] [address] | + + + | Home Phone | | + + + | Preferred Language | Unknown | + + + | Marital Status | | + + + | Buddhism Affiliation | Unknown | + + + | Race | Unknown | + + + | Ethnic Group | Unknown | + + + Author + + + | Author | [facility] [employer] | + + + | Organization | [facility] [employer] | + + + | Address | Unknown | + + + | Phone | Unavailable | + + + Support + + +---------+ + | Name | Relationship | Address | Phone | + + +---------+ + | Mine Marcos | ECON | Unknown | | + + +---------+ + Care Team Providers + +------+ + | Care Hospital Admissions Clerk Name | Role | Phone | + [...]
--- OUTSIDE RECORDS SUMMARY | ~2018-06-12 | XMS | Encounter Summary ---
Demographics + + + | Address | [address] | | | [place] [address] | + + + | Home Phone | | + + + | Preferred Language | Unknown | + + + | Marital Status | | + + + | Catholic Affiliation | Unknown | + + + | Race | Unknown | + + + | Ethnic Group | Unknown | + + + Author + + + | Author | [facility] | | | and Javyana | + + + | Organization | [facility] | | | [...] [place] | | | | | [address] | | + + + + + Care Team Providers + +------+ + | Care Investigations Chief Name | Role | Phone | + +------+ + | Neeru Leggett | PCP | | + +------+ + Encounter Details +--------+ + + + + | Date | Type | Department | Care Team | Description | +--------+ + + + + | 06/03/ | Hospital | [facility] | Heriberto Laurent | Internal derangement | | 2018 | Encounter | MED CTR XRAY [address] | [address] | of right shoulder; | | | | [place] | [address] [place] | Right shoulder pain, | | | | [place] [address] | [place] [address] | unspecified | | | | [phone] | [phone] | chronicity; Primary | | | | [...] [place] | | | | | | [address] | | | | | | [phone] | | | | | | | [...] + + | Performing | Address | City/State[facility] | Phone Number | | Organization | [...]
--- OUTSIDE RECORDS SUMMARY | ~2018-06-12 | XMS | Clinical Summary ---
Demographics + + + | Address | [address] | | | [place] [address] | + + + | Home Phone | | + + + | Preferred Language | Unknown | + + + | Marital Status | | + + + | Taoist Affiliation | Unknown | + + + | Race | Unknown | + + + | Ethnic Group | Unknown | + + + Author + + + | Author | [facility] | + + + | Organization | [facility] [employer] [facility] | + + + | Address | Unknown | + + + | Phone | Unavailable | + + + Support + + +---------+ + | Name | Relationship | Address | Phone | + + +---------+ + | Mine Marcos | ECON | Unknown | | + + +---------+ + Care Team Providers + +------+ + | Care Nut Processing Supervisor Name | Role | Phone | [...]
--- OUTSIDE RECORDS SUMMARY | ~2018-06-12 | XMS | Encounter Summary ---
Demographics + + + | Address | [address] | | | [place] [address] | + + + | Home Phone | | + + + | Preferred Language | Unknown | + + + | Marital Status | | + + + | Taoism Affiliation | Unknown | + + + | Race | Unknown | + + + | Ethnic Group | Unknown | + + + Author + + + | Author | [facility] | | | and [...] [place] | | | | | [address] | | + + + + + Care Team Providers + +------+ + | Care Sequencing Machine Operator Name | Role | Phone | + +------+ + | Neeru Leggett | PCP | | + +------+ + Encounter Details +--------+ + + + + | Date | Type | Department | Care Team | Description | +--------+ + + + + | 06/03/ | Hospital | [facility] | Heriberto Laurent | Internal derangement | | 2018 | Encounter | MED CTR XRAY [address] | [address] | of right shoulder; | | | | [place] | [address] [place] | Right shoulder pain, | | | | [place] [address] | [place] [address] | unspecified | | | | [phone] | [phone] | chronicity; Primary | | | | [...] [place] | | | | | | [address] | | | | | | [phone] | | | | | | | [...] + + | Performing | Address | City/[facility] | Phone Number | | Organization [...]
--- OUTSIDE RECORDS SUMMARY | ~2018-06-12 | XMS | Encounter Summary ---
Demographics + + + | Address | [address] | | | [place] [address] | + + + | Home Phone | | + + + | Preferred Language | Unknown | + + + | Marital Status | | + + + | Holiness Affiliation | Unknown | + + + | Race | Unknown | + + + | Ethnic Group | Unknown | + + + Author + + + | Author | [facility] | | | and Javyana | + + + | Organization | [facility] | | | [...] [place] | | | | | [address] | | + + + + + Care Team Providers + +------+ + | Care Soap Boiler Name | Role | Phone | + [...] + + | 05/31/ | Emergency | [facility] | Joe Kong | Chronic right | | 2018 | | MED CTR EMERGENCY | MD Nain [address] | shoulder pain | | | | [place] [address] | [address] [facility] | (Primary Dx) | | | | [place], [place] | [place] [address] | | | | | [address] | [phone] | | | | | [phone] | | | +--------+ + + + [...] attachments cannot be sent through Care Everywhere.Renato ([place])in this encounter Medications at Time of Discharge [...] [place] | | | | | | [address] | | | | | | [phone] | | | | | | | [...] | | | [place] | | | [id number] | | | [id number] | | | This | | | [...] | | | 178-01 | | | [id number] | | | d0cb | | | [...] | | | St. | | | [facility] | | | y | | | [...] | | | r | | | [place] | | | , BI TESTER, | | | BI TESTER | | | Primar | | | [...] | | | St. | | | [facility] | | | y | | | [...] ST. | | Urine | | | [facility] | | | | | [...] [address] | [place] | [phone] | | [facility] | | [address] | | | - LABORATORY | | | | + + + + + | [facility] | [address] | [place] | | | [facility] | | [address] | | | - LABORATORY | | [...] + + + + + | Specific [place] | 1.008 | 1.001 - 1.030 | [...] ST. | | UA | | | [facility] | | | | | CENTER [...] + | [facility] | [address] | [place], [place] | [phone] | | [facility] | | [address] | | | - LABORATORY | | | | + + + + + | [facility] | [address] | [place], [place] | | | [facility] | | [address] | | | - LABORATORY | | | | + + + + + Extra Lavender Top Tube (05/31/2018 1909) + +-------+ + + | Component | Value | Ref Range | Performed At | + +-------+ + + | Extra Lavender Top | Done | | [facility] | | Tube | | | [facility] | | | | | [...] + | [facility] | [address] | [place] | [phone] | | [facility] | | [address] | | | - LABORATORY | | | | + + + + + | [facility] | [address] | [place] | | | [facility] | | [address] | | | - LABORATORY | | [...] + | [facility] | [address] | [place] | [phone] | | [facility] | | [address] | | | - LABORATORY | | | | + + + + + | [facility] | [address] | [place] | | | [facility] | | [address] | | | - LABORATORY | | [...] + | [facility] | [address] | [place], [place] | [phone] | | [facility] | | [address] | | | - LABORATORY | | | | + + + + + | [facility] | [address] | [place], [place] | | | [facility] | | [address] | | | - LABORATORY | | [...] + | [facility] | [address] | [place] | [phone] | | [facility] | | [address] | | | - LABORATORY | | | | + + + + + | [facility] | [address] | [place] | | | [facility] | | [address] | | | - LABORATORY | | [...] + | [facility] | [address] | [place], [place] | [phone] | | [facility] | | [address] | | | - LABORATORY | | | | + + + + + | [facility] | [address] | [place], [place] | | | [facility] | | [address] | | | - LABORATORY | | | | + + + + + TSH (05/31/2018 1906) + + + + + | Component | Value | Ref Range | Performed At | + + + + + | TSH | 0.91Comment: This is a | 0.45 - 5.33 uIU/mL | [facility]. | | | third generation TSH | | [facility] | | | test. | [...] + | [facility] | [address] | [place] | [phone] | | [facility] | | [address] | | | - LABORATORY | | | | + + + + + | [facility] | [address] | [place], [place] | | | [facility] | | [address] | | | - LABORATORY | | [...] + | [facility] | [address] | [place] | [phone] | | [facility] | | [address] | | | - LABORATORY | | | | + + + + + | [facility] | [address] | [place] | | | [facility] | | [address] | | | - LABORATORY | | [...] [facility] | | | | | [facility] | | | | | CENTER - | | | | | LABORATORY | + + + + + | ANION GAP | 13 | 3 - 16 mmol/L | [facility] | | | | | [facility] | | | | | [...] (L) | 7 - 18 mg/dL | [facility]. | | | | | [facility] | | | | | CENTER - | | | | | LABORATORY | + + + + + | Creatinine, | 0.59 (L) | 0.60 - 1.30 mg/dL | [facility]. | | Serum/Plasma | | | [facility] | | | | | CENTER - | | | | | LABORATORY | + + + + + | eGFR if not | >60Comment: GLOMERULAR | >=60 mL/min/1.73m2 | [facility]. | | YEMENI | FILTRATION | | [facility] | | | RATE,ESTIMATED mL/min | | CENTER - | | | /1.40g6Efbk than 60 | | LABORATORY | | [...] + | [facility] | [address] | [place] | [phone] | | [facility] | | [address] | | | - LABORATORY | | | | + + + + + | [facility] | [address] | [place], [place] | | | [facility] | | [address] | | | - LABORATORY | | [...] [address] | [place] | [phone] | | [facility] | | [address] | | | - LABORATORY | | | | + + + + + | [facility] | [address] | [place], [place] | | | [facility] | | [address] | | | - LABORATORY | | [...]
--- OUTSIDE RECORDS SUMMARY | ~2018-06-12 | XMS | Encounter Summary ---
Demographics + + + | Address | [address] | | | [place] [address] | + + + | Home Phone | | + + + | Preferred Language | Unknown | + + + | Marital Status | | + + + | Yazdanism Affiliation | Unknown | + + + | Race | Unknown | + + + | Ethnic Group | Unknown | + + + Author + + + | Author | [facility] | | | and Javyana | + + + | Organization | [facility] | | | [...] [place] | | | | | [address] | | + + + + + Care Team Providers + +------+ + | Care Toeing Stockings Name | Role | Phone | + [...] + + | 05/31/ | Emergency | [facility] | Joe Kong | Chronic right | | 2018 | | MED CTR EMERGENCY | MD Nain [address] | shoulder pain | | | | [place] [address] | [address] [facility] | (Primary Dx) | | | | [place], [place] | [place] [address] | | | | | [address] | [phone] | | | | | [phone] | | | +--------+ + + + [...] attachments cannot be sent through Care Everywhere.Renato (Iranian)in this encounter Medications at Time of Discharge [...] [place] | | | | | | [address] | | | | | | [phone] | | | | | | | [...] | | | [place] | | | [id number] | | | [id number] | | | This | | | [...] | | | 178-01 | | | [id number] | | | d0cb | | | [...] | | | St. | | | [place] | | | y | | | [...] | | | r | | | [place] | | | , [employer], | | | [employer] | | | Primar | | | [...] | | | St. | | | [place] | | | y | | | [...] ST. | | Urine | | | [facility] | | | | | CENTER - [...] ST. | | Urine | | | [facility] | | | | [...] [address] | [place] | [phone] | | [facility] | | [address] | | | - LABORATORY | | | | + + + + + | [facility] | [address] | [place] | | | [facility] | | [address] | | | - LABORATORY | | | | + + + + + Urinalysis with Microscopic with Culture if Indicated (05/31/20181936) + + + + + | Component | Value | Ref Range | Performed At | + + + + + | COLOR | Yellow | Light Yellow, | [facility] | | | | Yellow, Straw | [facility] | | | | | CENTER - | | | | | LABORATORY | + + + + + | CLARITY | Clear | Clear | [facility] | | | | | [facility] | | | | | CENTER - | | | | | LABORATORY | + + + + + | PH UA | 8.0 | 5.0 - 8.0 | [facility] | | | | | [facility] | | | | | CENTER - | | | | | LABORATORY | + + + + + | Specific [place] | 1.008 | 1.001 - 1.030 | [...] + | [facility] | [address] | [place], [place] | [phone] | | [facility] | | [address] | | | - LABORATORY | | | | + + + + + | [facility] | [address] | [place], [place] | | | [facility] | | [address] | | | - LABORATORY | | | | + + + + + Extra Lavender Top Tube (05/31/2018 1909) + +-------+ + + | Component | Value | Ref Range | Performed At | + +-------+ + + | Extra Lavender Top | Done | | [facility] | | Tube | | | [facility] | | | | [...] + | [facility] | [address] | [place] | [phone] | | [facility] | | [address] | | | - LABORATORY | | | | + + + + + | [facility] | [address] | [place] | | | [facility] | | [address] | | | - LABORATORY | | | | + + + + + Extra Gold Top Tube (05/31/20181908) + +-------+ + + | Component | Value | Ref Range | Performed At | + +-------+ + + | EGDT | Done | | [facility] | | | | | [facility] | | | | | CENTER - | | | | | LABORATORY | + +-------+ + + + + | Specimen | + + | Blood | + + + + + + + | Performing | Address | City/State/Zipcode | Phone Number | | Organization | | | | + + + + + | [facility] | [address] | [place] | [phone] | | [facility] | | [address] | | | - LABORATORY | | | | + + + + + | [facility] | [address] | [place] | | | [facility] | | [address] | | | - LABORATORY | | | | + + + + + Extra Blue Top Tube (05/31/20181908) + +-------+ + + | Component | Value | Ref Range | Performed At | + +-------+ + + | Extra Blue Top Tube | Done | | [facility] | | | | | [facility] | | | | | CENTER - | | | | | LABORATORY | + +-------+ + + + + | Specimen | + + | Blood | + + + + + + + | Performing | Address | City/State/Zipcode | Phone Number | | Organization | | | | + + + + + | [facility] | [address] | [place], [place] | [phone] | | [facility] | | [address] | | | - LABORATORY | | | | + + + + + | [facility] | [address] | [place], [place] | | | [facility] | | [address] | | | - LABORATORY | | [...] + | [facility] | [address] | [place] | [phone] | | [facility] | | [address] | | | - LABORATORY | | | | + + + + + | [facility] | [address] | [place] | | | [facility] | | [address] | | | - LABORATORY | | | | + + + + + Acetaminophen Level (05/31/20181905) + +-------+ + + | Component | Value | Ref Range | Performed At | + +-------+ + + | Acetaminophen Level | <10 | <10 ug/mL | [facility] | | | | | [facility] | | | | | CENTER - | | | | | LABORATORY | + +-------+ + + + + | Specimen | + + | Blood | + + + + + + + | Performing | Address | City/State/Zipcode | Phone Number | | Organization | | | | + + + + + | [facility] | [address] | [place], [place] | [phone] | | [facility] | | [address] | | | - LABORATORY | | | | + + + + + | [facility] | [address] | [place], [place] | | | [facility] | | [address] | | | - LABORATORY | | | | + + + + + TSH (05/31/2018 1906) + + + + + | Component | Value | Ref Range | Performed At | + + + + + | TSH | 0.91Comment: This is a | 0.45 - 5.33 uIU/mL | [facility]. | | | third generation TSH | | [facility] | | | test. | [...] + | [facility] | [address] | [place] | [phone] | | [facility] | | [address] | | | - LABORATORY | | | | + + + + + | [facility] | [address] | [place], [place] | | | [facility] | | [address] | | | - LABORATORY | | | | + + + + + Ethanol (05/31/20181905) + +-------+ + + | Component | Value | Ref Range | Performed At | + +-------+ + + | ALCOHOL, | 163 | <400 mg/dL | [facility] | | SERUM/PLASMA | | | [facility] | | | | | CENTER - | | | | | LABORATORY | + +-------+ + + + + | Specimen | + + | Blood | + + + + + + + | Performing | Address | City/State/Zipcode | Phone Number | | Organization | | | | + + + + + | [facility] | [address] | [place] | [phone] | | [facility] | | [address] | | | - LABORATORY | | | | + + + + + | [facility] | [address] | [place] | | | [facility] | | [address] | | | - LABORATORY | | [...] [facility] | | | | | [facility] | | | | | CENTER - | | | | | LABORATORY | + + + + + | ANION GAP | 13 | 3 - 16 mmol/L | [facility] | | | | | [facility] | | | | | CENTER - | | | | | LABORATORY | + + + + + | GLUCOSE | 143 (H) | 70 - 109 mg/dL | [facility] | | | | | [facility] | | | | | CENTER - | | | | | LABORATORY | + + + + + | BUN | 5 (L) | 7 - 18 mg/dL | [facility]. | | | | | [facility] | | | | | CENTER - | | | | | LABORATORY | + + + + + | Creatinine, | 0.59 (L) | 0.60 - 1.30 mg/dL | [facility]. | | Serum/Plasma | | | [facility] | | | | | CENTER - | | | | | LABORATORY | + + + + + | eGFR if not | >60Comment: GLOMERULAR | >=60 mL/min/1.73m2 | [facility]. | | SERBIAN | FILTRATION | | [facility] | | | RATE,ESTIMATED mL/min | | CENTER - | | | /1.07i1Abwl than 60 | | LABORATORY | | [...] + | [facility] | [address] | [place] | [phone] | | [facility] | | [address] | | | - LABORATORY | | | | + + + + + | [facility] | [address] | [place], [place] | | | [facility] | | [address] | | | - LABORATORY | | | | + + + + + CBC with Differential (05/31/20181905) + +-------+ + + | Component | Value | Ref Range | Performed At | + +-------+ + + | WBC | 9.4 | 4.0 - 11.0 K/uL | [facility] | | | | | [facility] | | | | | CENTER - [...] [facility] | | | | | [facility] | | | | | CENTER - [...] [address] | [place] | [phone] | | [facility] | | [address] | | | - LABORATORY | | | | + + + + + | [facility] | [address] | [place], [place] | | | [facility] | | [address] | | | - LABORATORY | | [...]
--- OUTSIDE RECORDS SUMMARY | ~2018-06-12 | XMS | Encounter Summary ---
Demographics + + + | Address | [address] | | | [place] [address] | + + + | Home Phone | | + + + | Preferred Language | Unknown | + + + | Marital Status | | + + + | Gnosticism Affiliation | Unknown | + + + | Race | Unknown | + + + | Ethnic Group | Unknown | + + + Author + + + | Author | [facility] | | | and Javyana | + + + | Organization | [facility] | | [...] [place] | | | | | [address] | | + + + + + Care Team Providers + +------+ + | Care Assistant County Engineer Name | Role | Phone | + [...] + + | 06/03/ | Emergency | [facility] | Manuel Leggett, | Acute pain of right | | 2018 - | | [facility] | MD [address] | shoulder (Primary | | | | CENTER [address] | [facility] [place] | Dx); Depression, | | 06/04/ | | [place] | [place] [address] | unspecified | | 2017 | | [address] | [phone] | depression type; | | | | [phone] | | Suicidal ideation; | | | [...] with primary care Follow up at the [facility] Follow-up with orthopedics Any additional prescription for pain medicine needs to come from one of your regular physic ians, not the ER The following attachments cannot be sent through Care Everywhere.Depression (Faroese)Alcoho l Intoxication (Faroese)Hypokalemia (Faroese)Shoulder Problems (Faroese)in this encounter Medications at Time of Discharge [...] [place] | | | | | | [address] | | | | | | [phone] | | | | | | | [...] | | | [place] | | | [id number] | | | [id number] | | | This | | | [...] | | | 178-01 | | | [id number] | | | d0cb | | | [...] | | | St. | | | [place] | | | y | | | [...] | | | r | | | Minter | | | , LOADER OPERATOR, | | | LOADER OPERATOR | | | Primar | | | [...] | | | fectio | | | n/Posting Specialist | | | nic10/ | | | [...] | | | St. | | | [place] | | | y | | | [...] | | | [phone] | | | [phone] | | | .These | | | [...] +---+--------+ in this encounter Results TSH (06/03/2018 6022) + + + + + | Component [...] [address] | [place] | [phone] | | [facility] | | [address] | | | - LABORATORY | | | | + + + + + | [facility] | [address] | [place] | | | [facility] | | [address] | | | - LABORATORY | | | | + + + + + Urinalysis with Microscopic with Culture if Indicated (06/03/20182253) + + + + + | Component | Value | Ref Range | Performed At | + + + + + | COLOR | Yellow | Light Yellow, | [facility] | | | | Yellow, Straw | [facility] | | | | | CENTER [...] + + + + + | Specific [place] | 1.013 | 1.001 - 1.030 | [...] + + | Performing | Address | City/[facility]/Zipcode | Phone Number | | Organization | | | | + + + + + | [facility] | [address] | [place], [place] | [phone] | | [facility] | | [address] | | | - LABORATORY | | | | + + + + + | [facility] | [address] | [place] | | | [facility] | | [address] | | | - LABORATORY | | | | + + + + + Drugs of Abuse, Screen, Urine (06/03/2018 6430) + + + + + | Component | Value | Ref Range | Performed At | + + + + + | Amphetamine Screen, | Negative | Negative | [facility] | | Urine | | | [facility] | | | | | CENTER - | | | | | LABORATORY | + + + + + | Barbiturates Screen, | Negative | Negative | [facility] | | Urine | | | [facility] | | | | | CENTER [...] + | [facility] | [address] | [place], [place] | [phone] | | [facility] | | [address] | | | - LABORATORY | | | | + + + + + | [facility] | [address] | [place], [place] | | | [facility] | | [address] | | | - LABORATORY | | [...] + | [facility] | [address] | [place] | [phone] | | [facility] | | [address] | | | - LABORATORY | | | | + + + + + | [facility] | [address] | [place] | | | [facility] | | [address] | | | - LABORATORY | | | | + + + + + Salicylate Level (06/03/20182253) + +-------+ + + | Component | Value | Ref Range | Performed At | + +-------+ + + | Salicylate Level | <4.0 | <30.0 mg/dL | [facility] | | | | | [facility] | | | | | CENTER - | | | | | LABORATORY | + +-------+ + + + + | Specimen | + + | Blood | + + + + + + + | Performing | Address | City/State/Zipcode | Phone Number | | Organization | | | | + + + + + | [facility] | [address] | [place], [place] | [phone] | | [facility] | | [address] | | | - LABORATORY | | | | + + + + + | [facility] | [address] | [place], [place] | | | [facility] | | [address] | | | - LABORATORY | | | | + + + + + Ethanol (06/03/20182253) + +-------+ + + | Component | Value | Ref Range | Performed At | + +-------+ + + | ALCOHOL, | 127 | <400 mg/dL | [facility] | | SERUM/PLASMA | | | [facility] | | | | | CENTER - | | | | | LABORATORY | + +-------+ + + + + | Specimen | + + | Blood | + + + + + + + | Performing | Address | City/State/Zipcode | Phone Number | | Organization | | | | + + + + + | [facility] | [address] | [place] | [phone] | | [facility] | | [address] | | | - LABORATORY | | | | + + + + + | [facility] | [address] | [place] | | | [facility] | | [address] | | | - LABORATORY | | | | + + + + + Comprehensive Metabolic Panel (06/03/20182253) + + + + + | Component | Value | Ref Range | Performed At | + + + + + | NA | 140 | 136 - 149 mmol/L | [facility] | | | | | [facility] | | | | | CENTER [...] >=60 mL/min/1.73m2 | [facility] | | [place] | FILTRATION | | [facility] | | | RATE,ESTIMATED mL/min | | CENTER - | | | /1.54q8Hjwt than 60 | | LABORATORY | | [...] | | | | | [facility] | | | | | CENTER [...] | | appended report. These | | [facility] MED[facility] | | | results have been | | CENTER - | | | appended to a previously | | LABORATORY | | | preliminary verified | | | | | report. | | | + + + + + | Total protein | 6.9 | 6.0 - 7.8 g/dL | [facility] | | | | | [facility] MEDICAL | | | | | [...] | | appended report. These | | [facility] MED[facility] | | | results have been | | CENTER - | | | appended to a previously | | LABORATORY | | | preliminary verified | | | | | report. | | | + + + + + | GLOBULIN | 3.0 | 2.1 - 3.8 g/dL | [facility] | | | | | [facility] | | | | | CENTER - | | | | | LABORATORY | + + + + + | Albumin/Globulin | 1.3 | 0.8 - 2.0 | [facility] | | ratio | | | [facility] | | | | | CENTER - | | | | | LABORATORY | + + + + + | BUN/CREA | 12.9 | | [facility] | | | | | [facility] | | | | | CENTER [...] [address] | [place] | [phone] | | [facility] | | [address] | | | - LABORATORY | | | | + + + + + | [facility] | [address] | [place] | | | [facility] | | [address] | | | - LABORATORY | | | | + + + + + CBC with Differential (06/03/20182253) + +-------+ + + | Component | Value | Ref Range | Performed At | + +-------+ + + | WBC | 9.9 | 4.0 - 11.0 K/uL | [facility]. | | | | | [facility] | | | | | CENTER - | | | | | LABORATORY | + +-------+ + + | RBC | 4.90 | 4.30 - 5.70 M/uL | [facility]. | | | | | [facility] | | | | | CENTER [...] [facility] | | | | | [facility] | | | | | [...] + | [facility] | [address] | [place], [place] | [phone] | | [facility] | | [address] | | | - LABORATORY | | | | + + + + + | [facility] | [address] | [place], [place] | | | [facility] | | [address] | | | - LABORATORY | | [...]
--- OUTSIDE RECORDS SUMMARY | ~2018-06-12 | XMS | Clinical Summary ---
Demographics + + + | Address | [address] | | | [place] [address] | + + + | Home Phone | | + + + | Preferred Language | Unknown | + + + | Marital Status | | + + + | Rastafari Affiliation | Unknown | + + + | Race | Unknown | + + + | Ethnic Group | Unknown | + + + Author + + + | Author | [facility] | | | and Javyana | + + + | Organization | [facility] | | | [...] [place] | | | | | [address] | | + + + + + Care Team Providers + +------+ + | Care Greeting Card Writer Name | Role | Phone | + [...] baclofen twice | | ER visit and LOFT WORKER PILE DRIVING eval 07/03/17 and 07/05/17 | + + [...] outside recordsFinds good | | support w/ voodoo groups | + + + + + [...] unable to get detox | | at [facility] Assessment & Plan: Self medicates with ETOH when out of | | narcoticsVery dangerous behavior - advised on risksPatient | | declined referral to treatment or to meet with [facility] | |Per ER note again 06/15/2017 - still drinking; unable to get detox [place] | | | |Last Assessment & Plan: | |Self medicates with ETOH when out of narcotics | |Very dangerous behavior - advised on risks | |Patient declined referral to treatment or to meet with [facility] | + + + + + | Chronic pain of both shoulders | 04/12/2017 | + + + + + | Overview: Overview: Hx multiple RC surgeryOverview: L | | shoulder arthroscopy with subacromial decompression x 2 (2010 | | with Dr. Espinoza and re-injury with re-repair 2017 at | | [facility])Previously completed PTInjections - minimal reliefSee | | chronic painLast Assessment & Plan: Chronic shoulder pain with | | history of multiple shoulder surgeries and previous PT and | | injections. Referral placed to [facility] per patient | | preference | | | |Last Assessment & Plan: | |Chronic shoulder pain with history of multiple shoulder surgeries and previous PT and injec tions. Referral placed to [facility] per patient preference | + + + [...] + -+ | Overview: Overview: Followed by [facility]; chronic | | narcoticsHas and understands how to use NarcanOverview: Followed | | by [facility]; chronic narcoticsHas and understands | | how [...] to discuss transportation resources to | | [facility]Patient refused to discuss non-narcotic alternatives | | [...] | surgeryDr. Lui referred him to [facility] for second opinion - | | pending first visit | |Multiple hernia repair. Followed by GI and surgery | |Dr. Lui referred him to [facility] for second opinion - pending first [...] [place] | | | | | | [address] | | | | | | [phone] | | | | | | | [...] | | | [place] | | | [id number] | | | [id number] | | | This | | | [...] | | | 178-01 | | | [id number] | | | d0cb | | | [...] | | | St. | | | [place] | | | y | | | [...] | | | r | | | [place] | | | , CHIEF SECURITY AND SAFETY OFFICER, | | | CHIEF SECURITY AND SAFETY OFFICER | | | Primar | | | [...] | | | fectio | | | n/Cage Loader | | | nic10/ | | | [...] | | | St. | | | [place] | | | y | | | [...] | | | [place] | | | [id number] | | | [id number] | | | This | | | [...] | | | 178-01 | | | [id number] | | | d0cb | | | [...] | | | St. | | | [place] | | | y | | | [...] | | | r | | | [place] | | | , CHIEF SECURITY AND SAFETY OFFICER, | | | CHIEF SECURITY AND SAFETY OFFICER | | | Primar | | | [...] | | | St. | | | [place] | | | y | | | [...] with Microscopic with Culture if Indicated (06/03/2018 5144)Only the most recent of 2 results within [...] + + + + + | Specific [place] | 1.013 | 1.001 - 1.030 | [...] ST. | | | Indicated | | [facility] | | | | | [...] [address] | [place] | [phone] | | [facility] | | [address] | | | - LABORATORY | | | | + + + + + | [facility] | [address] | [place] | | | [facility] | | [address] | | | - LABORATORY | | | | + + + + + Drugs of Abuse, Screen, Urine (06/03/2018 0182)Only the most recent of 2 results within the time period is included. + + + + + | Component | Value | Ref Range | Performed At | + + + + + | Amphetamine Screen, | Negative | Negative | [facility] | | Urine | | | [facility] | | | | | CENTER - | | | | | LABORATORY | + + + + + | Barbiturates Screen, | Negative | Negative | [facility] | | Urine | | | [facility] | | | | | [...] + | [facility] | [address] | [place] | [phone] | | [facility] | | [address] | | | - LABORATORY | | | | + + + + + | [facility] | [address] | [place] | | | [facility] | | [address] | | | - LABORATORY | | | | + + + + + CBC with Differential (06/03/2018 6238)Only the most recent of 2 results within the time chuy dietz is included. + +-------+ + + | Component | Value | Ref Range | Performed At | + +-------+ + + | WBC | 9.9 | 4.0 - 11.0 K/uL | [facility] | | | | | [facility] | | | | | CENTER - | | | | | LABORATORY | + +-------+ + + | RBC | 4.90 | 4.30 - 5.70 M/uL | [facility] | | | | | [facility] | | | | | [...] [facility] | | | | | [facility] | | | | | [...] + | [facility] | [address] | [place], [place] | [phone] | | [facility] | | [address] | | | - LABORATORY | | | | + + + + + | [facility] | [address] | [place], [place] | | | [facility] | | [address] | | | - LABORATORY | | [...] | | third generation TSH | | [facility] | | | test. | [...] + | [facility] | [address] | [place] | [phone] | | [facility] | | [address] | | | - LABORATORY | | | | + + + + + | [facility] | [address] | [place] | | | [facility] | | [address] | | | - LABORATORY | | | | + + + + + Ethanol (06/03/2018 4153)Only the most recent of 2 results within the time period is includ ed. + +-------+ + + | Component | Value | Ref Range | Performed At | + +-------+ + + | ALCOHOL, | 127 | <400 mg/dL | [facility] | | SERUM/PLASMA | | | [facility] | | | | | [place] - | | | | | LABORATORY | + +-------+ + + + + | Specimen | + + | Blood | + + + + + + + | Performing | Address | City/State/Zipcode | Phone Number | | Organization | | | | + + + + + | [facility] | [address] | [place] | [phone] | | [facility] | | [address] | | | - LABORATORY | | | | + + + + + | [facility] | [address] | [place] | | | [facility] | | [address] | | | - LABORATORY | | | | + + + + + Acetaminophen Level (06/03/2018 7318)Only the most recent of 2 results within [...] + | [facility] | [address] | [place] | [phone] | | [facility] | | [address] | | | - LABORATORY | | | | + + + + + | [facility] | [address] | [place] | | | [facility] | | [address] | | | - LABORATORY | | | | + + + + + Salicylate Level (06/03/2018 4409)Only the most recent of 2 results within the time period is included. + +-------+ + + | Component | Value | Ref Range | Performed At | + +-------+ + + | Salicylate Level | <4.0 | <30.0 mg/dL | [facility] | | | | | [facility] | | | | | [...] + | [facility] | [address] | [place], [place] | [phone] | | [facility] | | [address] | | | - LABORATORY | | | | + + + + + | [facility] | [address] | [place] | | | [facility] | | [address] | | | - LABORATORY | | | | + + + + + Comprehensive Metabolic Panel (06/03/2018 0664)Only the most recent of 2 results within [...] 9 | 7 - 18 mg/dL | [facility] | | | | | [facility] | | | | | CENTER - | | | | | LABORATORY | + + + + + | Creatinine, | 0.70 | 0.60 - 1.30 mg/dL | [facility] | | Serum/Plasma | | | [facility] | | | | | CENTER - | | | | | LABORATORY | + + + + + | eGFR if not | >60Comment: GLOMERULAR | >=60 mL/min/1.73m2 | [facility] | | [place] | FILTRATION | | [facility] | | | RATE,ESTIMATED mL/min | | CENTER - | | | /1.79w6Itit than 60 | | LABORATORY | | [...] | | appended report. These | | [facility] | | | results have [...] + | [facility] | [address] | [place] | [phone] | | [facility] | | [address] | | | - LABORATORY | | | | + + + + + | [facility] | [address] | [place] | | | [facility] | | [address] | | | - LABORATORY | | [...] + | [facility] | [address] | [place], [place] | [phone] | | [facility] | | [address] | | | - LABORATORY | | | | + + + + + | [facility] | [address] | [place], [place] | | | [facility] | | [address] | | | - LABORATORY | | | | + + + + + Extra Gold Top Tube (05/31/20181908) + +-------+ + + | Component | Value | Ref Range | Performed At | + +-------+ + + | EGDT | Done | | [facility] | | | | | [facility] | | | | | [...] + | [facility] | [address] | [place], [place] | [phone] | | [facility] | | [address] | | | - LABORATORY | | | | + + + + + | [facility] | [address] | [place], [place] | | | [facility] | | [address] | | | - LABORATORY | | [...] + | [facility] | [address] | [place] | [phone] | | [facility] | | [address] | | | - LABORATORY | | | | + + + + + | [facility] | [address] | [place], [place] | | | [facility] | | [address] | | | - LABORATORY | | [...] +---------+ | [employer] ADMIN | [place]ET[place] | [id number] | Indemn | | | | | NS | | ity | | | | | ADMIN | | | | | | | [place] | | | | | | | [place] | | | | | + +--------+ +--------+ +---------+ | MEDICARE | MEDICA | [id number] | Medica | [phone] | | | | RE | | re | [phone] | | | | PART A | | | | | | | AND B | | | | | + +--------+ +--------+ +---------+ | MEDICAID [place] | MEDICA | [id number] | Medica | [phone] | | [...] | | | lady | | | [phone] | [phone] | + +--------+ +--------+ + +
--- OUTSIDE RECORDS SUMMARY | ~2018-06-12 | XMS | Encounter Summary ---
Demographics + + + | Address | [address] | | | [place] [address] | + + + | Home Phone | | + + + | Preferred Language | Unknown | + + + | Marital Status | | + + + | Hoahaoism Affiliation | Unknown | + + + | Race | Unknown | + + + | Ethnic Group | Unknown | + + + Author + + + | Author | [facility] | | | and Javyana | + + + | Organization | [facility] | | [...] [place] | | | | | [address] | | + + + + + Care Team Providers + +------+ + | Care Plastic Fixture Builder Name | Role | Phone | + [...] + + | 05/05/ | Office | [facility] | Her[place] | Internal derangement | | 2018 | Visit | ORTHOPEDIC SURGERY | [address] | of right shoulder | | | | [address] | [facility] | (Primary Dx); Right | | | | [place], [place] | [facility] [place] [address] | shoulder pain, | | | | [address] | [phone] | unspecified | | | | [phone] | | chronicity | +--------+---------+ + + [...] 12:14 This note was dictated using the [employer] voice recognition system. Minor errors in grammar [...] [place] | | | | | | [address] | | | | | | [phone] | | | | | | | | +--------+---------+ + + + as of this encounter Visit Diagnoses + + | Diagnosis | + + | Internal derangement of right shoulder - Primary | + + | Right shoulder pain, unspecified chronicity | + +"
--- OUTSIDE RECORDS SUMMARY | ~2018-06-12 | XMS | Encounter Summary ---
Demographics + + + | Address | [address] | | | [place] [address] | + + + | Home Phone | | + + + | Preferred Language | Unknown | + + + | Marital Status | | + + + | Christian Affiliation | Unknown | + + + | Race | Unknown | + + + | Ethnic Group | Unknown | + + + Author + + + | Author | [facility] | | | and Javyana | + + + | Organization | [facility] | | | [...] [place] | | | | | [address] | | + + + + + Care Team Providers + +------+ + | Care Noc Analyst Name | Role | Phone | + [...] | Internal | Heriberto | [address] | | | | | derangement | [place] | [place], | | | | | of right | [address] | [place] | | | | | shoulder | St [place] | [address] | | | | | Right | [place], [place] | Phone: | | | | | shoulder | [address] | [phone] | | | | | pain, | Phone: | Fax: | | | | | unspecified | [phone] | [phone] | | | | | chronicity | Fax: | | | | | | Primary | [phone] | | | | | | osteoarthrit [...] | Internal | Heriberto | [address] | | | | | derangement | [place] | [place], | | | | | of right | [address] | [place] | | | | | shoulder | St [place] | [address] | | | | | Right | [place], [place] | Phone: | | | | | shoulder | [address] | [phone] | | | | | pain, | Phone: | Fax: | | | | | unspecified | [phone] | [phone] | | | | | chronicity | Fax: | | | | | | Primary | [phone] | | | | | | osteoarthrit [...] | Internal | Heriberto | [address] | | | | | derangement | [place] | [place], | | | | | of right | [address] | [place] | | | | | shoulder | St [place] | [address] | | | | | Right | [place], [place] | Phone: | | | | | shoulder | [address] | [phone] | | | | | pain, | Phone: | Fax: | | | | | unspecified | [phone] | [phone] | | | | | chronicity | Fax: | | | | | | Primary | [phone] | | | | | | osteoarthrit [...] + + | 06/03/ | Hospital | [facility] | Heriberto [place] | Internal derangement | | 2018 | Encounter | MED CTR MRI [address] | [address] | of right shoulder; | | | | [place], | [address] [place] | Right shoulder pain, | | | | [place] [address] | [place] [address] | unspecified | | | | [phone] | [phone] | chronicity; Primary | | | | [...] [place] | | | | | | [address] | | | | | | [phone] | | | | | | | [...]
--- OUTSIDE RECORDS SUMMARY | ~2018-06-12 | XMS | Encounter Summary ---
Demographics + + + | Address | [address] | | | [place] [address] | + + + | Home Phone | | + + + | Preferred Language | Unknown | + + + | Marital Status | | + + + | Advent Affiliation | Unknown | + + + | Race | Unknown | + + + | Ethnic Group | Unknown | + + + Author + + + | Author | [facility] | | | and Javyana | + + + | Organization | [facility] [...] | + + + + + | Mnie Marcos | ECON | [place] | | | | | [address] | | + + + + + Care Team Providers + +------+ + | Care Oncology Coordinator Name | Role | Phone | + [...] | Internal | Heriberto | [address] | | | | | derangement | [place] | [place], | | | | | of right | [address] | [place] | | | | | shoulder | St [place] | [address] | | | | | Right | [place], [place] | Phone: | | | | | shoulder | [address] | [phone] | | | | | pain, | Phone: | Fax: | | | | | unspecified | [phone] | [phone] | | | | | chronicity | Fax: | | | | | | Primary | [phone] | | | | | | osteoarthrit [...] (Primary Dx); Right | | | | [place], [place] | [place] [address] | shoulder pain, | | | | [address] | [phone] | unspecified | | | | [phone] | | chronicity; Primary | | | [...] [place] | | | | | | [address] | | | | | | [phone] | | | | | | | [...]
--- OUTSIDE RECORDS SUMMARY | ~2018-06-12 | XMS | Encounter Summary ---
Demographics + + + | Address | [address] | | | [place] [address] | + + + | Home Phone [...] Author | [facility] [place] | | | and Javyana [...] [place] | | | | | [address] | | + + + + + Care Team Providers + +------+ + | Care Clean Out Driller Helper Name | Role | Phone | + [...] W | | | | | | [place], | | | | | | [place] [address] | | | | | | [phone] | | | +--------+ + + + [...] [place] | | | | | | [address] | | | | | | [phone] | | | | | | | | +--------+---------+ + + + as of this encounter Visit Diagnoses Not on filein this encounter
--- OUTSIDE RECORDS SUMMARY | ~2018-06-12 | XMS | Encounter Summary ---
Demographics + + + | Address | [address] | | | [place] [address] | + + + | Home Phone [...] | Author | [facility] [place] | | | and Javyana [...] [place] | | | | | [address] | | + + + + + Care Team Providers + +------+ + | Care Footwear Sales Coordinator Name | Role | Phone | [...] + + | 05/05/ | Office | [facility] | Heriberto Laurent | Internal derangement | | 2018 | Visit | ORTHOPEDIC SURGERY | [address] | of right shoulder | | | | [address] | [facility] | (Primary Dx); Right | | | | [place], [place] | [facility] [place] [address] | shoulder pain, | | | | [address] | [phone] | unspecified | | | | [phone] | | chronicity | +--------+---------+ + + [...] 12:14 This note was dictated using the [employer] voice recognition system. Minor errors in grammar [...] [place] | | | | | | [address] | | | | | | [phone] | | | | | | | | +--------+---------+ + + + as of this encounter Visit Diagnoses + + | Diagnosis | + + | Internal derangement of right shoulder - Primary | + + | Right shoulder pain, unspecified chronicity | + +"
--- OUTSIDE RECORDS SUMMARY | 2018-06-12 00:52 | XMS ---
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 No recent Security Events currently on file CRITERIA MET - 6 ED Visits in 6 Months - [facility] - Has Care Guidelines - [facility] - 2 Visits in 30 Days [facility] 06/08/2018-Current PHONE: [phone] jairon santiago Current PHONE: [phone] TITI Verdin [facility] Current PHONE: [phone] Primary Care Primary Care Current PHONE: [phone] Hien Neal Primary [facility] Current PHONE: Unknown Guidelines Source: [facility] Guidelines Date: 05/03/2018 Care Recommendation: Created [...] care guidelines exist for the following facilities: [facility] Care ( 07/05/2017 ) [facility] ( 07/01/2017 ) Care History Medical/Surgical 06/10/2018 [facility] - W spoke with Katia at [facility]. - There is not a current plan for patient to leave the Detox Facility, even though patient states he will be leaving the detox facility the next day he does not leave. - [facility] referred Katia to try the walk in clinic for non emergent medical needs for this patient due to patient long history of ED usage and chronic pain management. 11/05/2017 [facility] Please contact Shy from [facility] if patient is seen at ED . [...] ED please contact Community Health WorkerJosephine at [phone]. These are guidelines and the provider should exercise clinical judgment when providing care. 06/30/2017 [facility] Diverticulosis HTN (hypertension) Hyperlipidemia Obesity CARDIAC CATHERIZATION COLONOSCOPY SHOULDER ARTHROSCOPY STOMACH SURGERY UPPER GASTROINTESTINAL ENDOSCOPY VENTRAL HERNIA REPAIR ? 06/30/2017 [facility] Diverticulosis HTN (hypertension) Hyperlipidemia Obesity CARDIAC CATHERIZATION COLONOSCOPY SHOULDER ARTHROSCOPY STOMACH SURGERY UPPER GASTROINTESTINAL ENDOSCOPY VENTRAL HERNIA REPAIR ? Infection/Chronic 06/30/2017 [facility] Hx of chronic pain- abdominal and shoulder. 06/30/2017 [facility] Hx of chronic pain- abdominal and shoulder. Substance Use/Overdose 06/30/2017 [facility] History of alcohol abuse, multiple ED visits for intoxication and withdrawl. History of marijuana use. E.D. VISIT COUNT (12 MO.) 7 [facility] 8 [facility] TOTAL 15 NOTE: Visits indicate total known visits. ED/UCC VISIT TRACKING (12 MO.) 06/12/2018 00:48 [facility] [place] TYPE: Emergency COMPLAINT: - CHEST PAIN 06/09/2018 14:56 [facility] [place] TYPE: Emergency COMPLAINT: - ABD PAIN 06/08/2018 01:17 [facility] [place] TYPE: Emergency COMPLAINT: - ABD PAIN DIAGNOSES: - Essential (primary) hypertension - Fall on same level from slipping, tripping and stumbling with subsequent striking against other object, initial encounter - Other custodial (current) drug therapy - Nicotine dependence, unspecified, uncomplicated - Residual hemorrhoidal skin tags - Contusion of other part of head, initial encounter 06/06/2018 13:19 [facility] [place] TYPE: Emergency COMPLAINT: - RT SHOULDER PAIN DIAGNOSES: - Essential (primary) hypertension - Unspecified injury of right shoulder and upper arm, initial encounter - Nicotine dependence, unspecified, uncomplicated - Other superintendent container terminal (current) drug therapy - Pain in right shoulder 06/03/2018 22:35 [facility] [place] TYPE: Emergency DIAGNOSES: - Major depressive disorder, single episode, unspecified - Pain in right shoulder - Hypokalemia - Shoulder Pain - Suicidal ideations - Alcohol use, unspecified with intoxication, unspecified 05/31/2018 17:26 [facility] [place] TYPE: Emergency DIAGNOSES: - Pain in right shoulder - detox - Shoulder Pain - Detox Evaluation - Other chronic pain 11/09/2017 18:29 [facility] [place] TYPE: Emergency DIAGNOSES: - Alcohol Problem - Detox - Alcohol abuse, uncomplicated 11/06/2017 11:34 [facility] [place] TYPE: Emergency COMPLAINT: - RIGHT SIDED RIB PAIN/INJURY DIAGNOSES: - PURE HYPERCHOLESTEROLEMIA, UNSPECIFIED - Pleurodynia - Fall from chair, initial encounter - Personal history of nicotine dependence - Other superintendent container terminal (current) drug therapy - Contusion of right front wall of thorax, initial encounter - Essential (primary) hypertension - Pure hypercholesterolemia, unspecified 11/03/2017 18:21 [facility] [place] TYPE: Emergency COMPLAINT: - ABD PAIN DIAGNOSES: - Other superintendent container terminal (current) drug therapy - Upper abdominal pain, unspecified - Personal history of nicotine dependence - Right upper quadrant pain - Essential (primary) hypertension 11/01/2017 10:29 [facility] [place] TYPE: Emergency COMPLAINT: - FALL DIAGNOSES: - Personal history of nicotine dependence - Pure hypercholesterolemia, unspecified - Other superintendent container terminal (current) drug therapy - Fall on same level from slipping, tripping and stumbling without subsequent striking against object, initial encounter - PURE HYPERCHOLESTEROLEMIA, UNSPECIFIED - Pain in right shoulder - Essential (primary) hypertension 10/26/2017 15:41 [facility] [place] TYPE: Emergency DIAGNOSES: - abd pain - Epigastric pain - Abdominal Pain - Alcohol dependence, uncomplicated - Other stimulant abuse, uncomplicated - Hypokalemia 07/12/2017 15:53 [facility] [place] TYPE: Urgent Care DIAGNOSES: - Localized enlarged lymph nodes - Neck Pain 07/05/2017 03:57 [facility] [place] TYPE: Emergency DIAGNOSES: - Overdose (Intentional) - Suicidal - Nonpsychotic mental disorder, unspecified [facility]2017 [facility] [place] [facility] DIAGNOSES: - Anxiety - Poisoning by unspecified drugs, medicaments and biological substances, intentional self-harm, initial encounter - Anxiety; Intoxicated - Alcohol use, unspecified with intoxication, uncomplicated 06/30/2017 06:42 [facility] TYPE: Emergency COMPLAINT: - CHEST PAIN DIAGNOSES: - Personal history of nicotine dependence - Essential (primary) hypertension - Precordial pain - Other custodial (current) drug therapy 06/15/2017 10[facility]08 [facility] DIAGNOSES: - Unspecified abdominal pain - abd pain - Abdominal Pain INPATIENT VISIT TRACKING (12 MO.) No inpatient visits to display in this time frame [email or web address]
--- NOTE | 2018-06-12 19:54 | EKG ---
[facility] [address] [facility] [place], [place] [address] Signed Normal sinus rhythm Right bundle branch block Abnormal ECG When compared with ECG of 30-JUN-2017 06:49, QT has lengthened Confirmed by GOOD ANGULO MD ([id number]) on 06/12/2018 7:54:14 PM Electronically Signed By: GOOD ANGULO MD 06/12/181953 PATIENT NAME: AJ EMERSON Electrocardiogram DATE OF : 62 PHYSICIAN: GOOD ANGULO MD REPORT #: [id number] REPORT IS CONFIDENTIAL AND NOT TO BE RELEASED WITHOUT AUTHORIZATION
== END 2018-06-12 02:06 | disposition home or self-care (01) ==
LOC: ED 00:45
DX: R07.89 Other chest pain (principal); R10.9 Unspecified abdominal pain; G89.29 Other chronic pain; F10.239 Alcohol dependence with withdrawal, unspecified; I10 Essential (primary) hypertension; F17.200 Nicotine dependence, unspecified, uncomplicated; Z79.899 Other long term (current) drug therapy
CPT/HCPCS: 71046; 84484; 93005; 93010; 99285